=== PATIENT | male | born 1955 | race Caucasian/White ===

== ENCOUNTER → 2018-07-20 07:08 | Outpatient (CLI) | payer OTHER, SELFPAY ==
[2018-07-20 07:16] LABS: Bacteria 0 SEEN /hpf (None Seen); Mucous, Urine 0 SEEN /hpf (<or=2+); Red Blood Cells-Urine 0 SEEN /hpf (0-5); Squamous Epithelial Cells - UA 0 SEEN /hpf (0-5); White Blood Cells 0 SEEN /hpf (0-5)
[2018-07-20 08:38] LABS: Color, Urine Yellow (Yellow); Glucose, Dipstick Normal (Normal); Hematocrit 45.7 % (40-54); Hemoglobin 15.6 g/dl (13.0-16.5); Ketone-Dipstick Negative (Negative); Leukocyte Esterase-Dipstick Negative /ul (Negative); Mean Corp Hgb Conc 34.1 g/gl (32-36); Mean Corpuscular Hgb 32.6 pg (27.0-32.0); Mean Corpuscular Volume 95.6 fL (80-94); Mean Platelet Vol. 13.3 fl (6.2-12.0); Nitrite-Dipstick Negative (Negative); Occult Blood-Urine Negative /ul (Negative); Platelet Count 146 K/mm3 (150-450); Protein-Dipstick Negative (Negative); RBC Distribution Width CV 12.7 % (11.6-14.6); RBC Distribution Width SD 43.6 fl (35.1-43.9); Red Blood Count 4.78 M/mm3 (4.6-6.2); Urine Bilirubin Dipstick Negative (Negative); Urine Clarity Clear (Clear); Urine Urobilinogen Normal (Normal); White Blood Count 6.4 K/mm3 (4.4-11.0)
[2018-07-20 08:43] LABS: Scan Indicated on CBC? Y/N NO
[2018-07-20 09:18] LABS: ALB/GLOB Ratio 0.9 RATIO (0.9-2.4); AST(SGOT) 28 U/L (15-37); Alanine Aminotransfer ALT/SGPT 56 U/L (16-61); Albumin, Serum 3.7 g/dL (3.2-5.0); Alkaline Phosphatase 137 U/L (45-117); Anion Gap 8 (5-15); BUN 17 mg/dL (7-18); Calcium,Total 8.9 mg/dL (8.5-10.1); Chloride 105 mmol/L (98-107); Cholesterol 219 mg/dL (200); Creatinine, Serum 1.06 mg/dL (0.70-1.30); EST Glomerular Filtration Rate 75 mL/min (>60); Est Glom Filt Rate - Afr Amer 90 mL/min (>60); Globulin 3.9 g/dL (2.2-4.2); Glucose 91 mg/dL (74-106); High Density Lipoprotein 45 mg/dL; PSA,Total - Annual Screen 4.36 ng/mL (0.00-4.00); Protein, Total 7.6 g/dL (6.4-8.2); Sodium Level 141 mmol/L (136-145); Thyroid Stim Hormone (TSH) 3.87 uIU/mL (0.358-3.74); Triglycerides 184 mg/dL; Very Low Density Lipoprotein 37 mg/dL (5-40)
== END ==
PROVIDERS: Referring Provider Family Medicine; Visit Provider Family Medicine
DX: E78.2 Mixed hyperlipidemia (principal); Z12.5 Encounter for screening for malignant neoplasm of prostate; Z13.29 Encounter for screening for other suspected endocrine disorder
CPT/HCPCS: 36415; 80053; 80061; 81001; 84153; 84443; 85027; G0103

== ENCOUNTER → 2018-12-11 09:32 | Outpatient (CLI) | payer MEDICARE, OTHER, SELFPAY ==
[2018-12-11 11:21] LABS: PSA,Total- Diagnostic 4.44 ng/mL (0.0-4.0)
== END ==
PROVIDERS: Family Provider Family Medicine; PCP Family Medicine; Referring Provider Urology; Visit Provider Urology
DX: R97.20 Elevated prostate specific antigen [PSA] (principal); N40.1 Benign prostatic hyperplasia with lower urinary tract symptoms; N13.8 Other obstructive and reflux uropathy; R35.1 Nocturia
CPT/HCPCS: 36415; 84153

== ENCOUNTER → 2019-06-18 | Outpatient (CLI) | payer MEDICARE, OTHER, SELFPAY ==
[2019-06-18 08:01] LABS: Absolute Lymphocyte Count 2.36 X10^3/uL (0.83-4.51); Absolute Neutrophil Count 2.9 X10^3/uL (2.0-7.7); Basophil# 0.04 X10^3/uL; Basophil% 0.6 % (0-1); Eosinophil# 0.18 X10^3/uL; Eosinophils% 2.9 % (0-5); Hematocrit 46.4 % (40-54); Hemoglobin 15.5 g/dL (13.0-16.5); Lymphocyte # 2.36 X10^3/ul (4.0); Lymphocyte % 37.9 % (19-41); Mean Corp Hgb Conc 33.4 g/dL (32-36); Mean Corpuscular Hgb 31.3 pg (27.0-32.0); Mean Corpuscular Volume 93.5 fL (80-94); Mean Platelet Vol. 12.9 fl (6.2-12.0); Monocyte# 0.68 X10^3/uL; Monocyte% 10.9 % (0-10); NRBC Flagged by Analyzer 0 % (0-5); Neutrophil # 2.93 X10^3/uL (2.7-7.7); Neutrophil % 47.2 % (47-70); Platelet Count 146 K/mm3 (150-450); RBC Distribution Width CV 12.6 % (11.6-14.6); RBC Distribution Width SD 42.9 fl (35.1-43.9); Red Blood Count 4.96 M/mm3 (4.6-6.2); White Blood Count 6.2 K/mm3 (4.4-11.0)
[2019-06-18 08:30] LABS: ALB/GLOB Ratio 1.1 RATIO (0.9-2.4); AST(SGOT) 32 U/L (15-37); Alanine Aminotransfer ALT/SGPT 49 U/L (16-61); Albumin, Serum 3.9 g/dL (3.2-5.0); Alkaline Phosphatase 124 U/L (45-117); Anion Gap 6 (5-15); BUN 13 mg/dL (7-18); Calcium,Total 8.9 mg/dL (8.5-10.1); Chloride 107 mmol/L (98-107); Cholesterol 249 mg/dL (200); EST Glomerular Filtration Rate 80 mL/min (>60); Est Glom Filt Rate - Afr Amer 96 mL/min (>60); Globulin 3.6 g/dL (2.2-4.2); Glucose 102 mg/dL (74-106); High Density Lipoprotein 47 mg/dL; PSA,Total- Diagnostic 3.98 ng/mL (0.0-4.0); Protein, Total 7.5 g/dL (6.4-8.2); Sodium Level 138 mmol/L (136-145); Triglycerides 235 mg/dL; Very Low Density Lipoprotein 47 mg/dL (5-40)
== END | disposition home or self-care (01) ==
LOC: LAB 07:11
PROVIDERS: Family Provider Family Medicine; PCP Family Medicine; Referring Provider Urology; Visit Provider Urology
DX: R97.20 Elevated prostate specific antigen [PSA] (principal); N40.1 Benign prostatic hyperplasia with lower urinary tract symptoms; N13.8 Other obstructive and reflux uropathy; I10 Essential (primary) hypertension; R35.1 Nocturia; E78.2 Mixed hyperlipidemia
CPT/HCPCS: 36415; 80053; 80061; 84153; 85025

== ENCOUNTER → 2019-12-24 05:58 | Outpatient (CLI) | payer MEDICARE, OTHER, SELFPAY ==
[2019-12-24 07:36] LABS: PSA,Total- Diagnostic 3.57 ng/mL (0.0-4.0)
== END ==
PROVIDERS: PCP Family Medicine; Referring Provider Urology; Visit Provider Urology
DX: N40.1 Benign prostatic hyperplasia with lower urinary tract symptoms (principal); N13.8 Other obstructive and reflux uropathy; R35.1 Nocturia; R97.20 Elevated prostate specific antigen [PSA]
CPT/HCPCS: 36415; 84153

== ENCOUNTER → 2020-02-25 06:09 | Outpatient (CLI) | payer MEDICARE, OTHER, SELFPAY ==
[2020-02-25 07:50] LABS: Anion Gap 5 (5-15); BUN 15 mg/dL (7-18); BUN/Creat Ratio 15.5 RATIO (10-20); Calcium,Total 9.4 mg/dL (8.5-10.1); Chloride 107 mmol/L (98-107); Cholesterol 172 mg/dL (200); Creatinine, Serum 0.97 mg/dL (0.70-1.30); EST Glomerular Filtration Rate 83 mL/min (>60); Est Glom Filt Rate - Afr Amer 100 mL/min (>60); Glucose 101 mg/dL (74-106); High Density Lipoprotein 47 mg/dL; Potassium 4.2 mmol/L (3.5-5.1); Sodium Level 142 mmol/L (136-145); Triglycerides 230 mg/dL; Very Low Density Lipoprotein 46 mg/dL (5-40)
== END ==
PROVIDERS: PCP Family Medicine; Referring Provider Family Medicine; Visit Provider Family Medicine
DX: E78.2 Mixed hyperlipidemia (principal)
CPT/HCPCS: 36415; 80048; 80061

== ENCOUNTER → 2020-11-04 12:10 | Outpatient (CLI) | payer MEDICARE, OTHER, SELFPAY ==
[2020-11-04 14:48] LABS: Absolute Lymphocyte Count 2.76 X10^3/uL (0.83-4.51); Absolute Neutrophil Count 3.6 X10^3/uL (2.0-7.7); Basophil# 0.06 X10^3/uL; Basophil% 0.8 % (0-1); Eosinophil# 0.18 X10^3/uL; Eosinophils% 2.4 % (0-5); Hematocrit 48.4 % (40-54); Hemoglobin 15.9 g/dL (13.0-16.5); Lymphocyte # 2.76 X10^3/ul (4.0); Lymphocyte % 37.3 % (19-41); Mean Corp Hgb Conc 32.9 g/dL (32-36); Mean Corpuscular Hgb 30.6 pg (27.0-32.0); Mean Corpuscular Volume 93.1 fL (80-94); Mean Platelet Vol. 13.6 fl (6.2-12.0); Monocyte# 0.75 X10^3/uL; Monocyte% 10.1 % (0-10); NRBC Flagged by Analyzer 0 % (0-5); Neutrophil # 3.63 X10^3/uL (2.7-7.7); Neutrophil % 49.1 % (47-70); Platelet Count 162 K/mm3 (150-450); RBC Distribution Width CV 12.4 % (11.6-14.6); RBC Distribution Width SD 42.7 fl (35.1-43.9); White Blood Count 7.4 K/mm3 (4.4-11.0)
[2020-11-04 15:23] LABS: AST(SGOT) 30 U/L (15-37); Alanine Aminotransfer ALT/SGPT 53 U/L (16-61); Albumin, Serum 3.9 g/dL (3.2-5.0); Alkaline Phosphatase 147 U/L (45-117); Anion Gap 7 (5-15); BUN 14 mg/dL (7-18); Calcium,Total 9.3 mg/dL (8.5-10.1); Chloride 104 mmol/L (98-107); Cholesterol 200 mg/dL (200); Creatinine, Serum 1.08 mg/dL (0.70-1.30); EST Glomerular Filtration Rate 73 mL/min (>60); Est Glom Filt Rate - Afr Amer 88 mL/min (>60); Glucose 92 mg/dL (74-106); High Density Lipoprotein 45 mg/dL; Potassium 3.9 mmol/L (3.5-5.1); Protein, Total 7.9 g/dL (6.4-8.2); Sodium Level 139 mmol/L (136-145); Thyroid Stim Hormone (TSH) 3.52 uIU/mL (0.358-3.74); Triglycerides 267 mg/dL; Very Low Density Lipoprotein 53 mg/dL (5-40)
== END ==
PROVIDERS: PCP Family Medicine; Referring Provider Family Medicine; Visit Provider Family Medicine
DX: E03.9 Hypothyroidism, unspecified (principal); D64.9 Anemia, unspecified; Z13.220 Encounter for screening for lipoid disorders
CPT/HCPCS: 36415; 80053; 80061; 84443; 85025

== ENCOUNTER → 2020-12-29 05:56 | Outpatient (CLI) | payer MEDICARE, OTHER, SELFPAY ==
[2020-12-29 08:17] LABS: PSA,Total- Diagnostic 5.33 ng/mL (0.0-4.0)
== END ==
PROVIDERS: PCP Family Medicine; Referring Provider Urology; Visit Provider Urology
DX: R97.20 Elevated prostate specific antigen [PSA] (principal); R35.1 Nocturia; N40.1 Benign prostatic hyperplasia with lower urinary tract symptoms; N13.8 Other obstructive and reflux uropathy
CPT/HCPCS: 36415; 84153

== ENCOUNTER 2021-12-21 15:23 | Outpatient (CLI) | payer MEDICARE, OTHER, SELFPAY ==
[2021-12-21 15:30] LABS: Bacteria 0 SEEN /hpf (None Seen); Mucous, Urine 0 SEEN /hpf (<or=2+); Red Blood Cells-Urine 0 SEEN /hpf (0-5); Squamous Epithelial Cells - UA 0 SEEN /hpf (0-5)
[2021-12-21 15:53] LABS: Absolute Lymphocyte Count 3.33 X10^3/uL (0.83-4.51); Absolute Neutrophil Count 5.4 X10^3/uL (2.0-7.7); Basophil# 0.08 X10^3/uL; Basophil% 0.8 % (0-1); Hematocrit 45.3 % (40-54); Hemoglobin 15.6 g/dL (13.0-16.5); Lymphocyte # 3.33 X10^3/ul (0.83-4.51); Lymphocyte % 33.5 % (19-41); Mean Corp Hgb Conc 34.4 g/dL (32-36); Mean Corpuscular Hgb 31.7 pg (27.0-32.0); Mean Corpuscular Volume 92.1 fL (80-94); Mean Platelet Vol. 12.9 fl (6.2-12.0); Monocyte# 0.88 X10^3/uL; Monocyte% 8.9 % (0-10); NRBC Flagged by Analyzer 0 % (0-5); Neutrophil # 5.38 X10^3/uL (2.7-7.7); Neutrophil % 54.1 % (47-70); Platelet Count 162 K/mm3 (150-450); RBC Distribution Width CV 12.8 % (11.6-14.6); RBC Distribution Width SD 43.5 fl (35.1-43.9); Red Blood Count 4.92 M/mm3 (4.6-6.2); White Blood Count 9.9 K/mm3 (4.4-11.0)
[2021-12-21 15:58] LABS: Color, Urine Yellow (Yellow); Glucose, Dipstick Normal (Normal); Ketone-Dipstick Negative (Negative); Leukocyte Esterase-Dipstick Negative /ul (Negative); Nitrite-Dipstick Negative (Negative); Occult Blood-Urine Negative /ul (Negative); Protein-Dipstick Negative (Negative); Specific Gravity, Urine 1.025 (1.002-1.030); Urine Bilirubin Dipstick Negative (Negative); Urine Clarity Clear (Clear); Urine Urobilinogen Normal (Normal)
[2021-12-21 16:11] LABS: White Blood Cells 0-5 SEEN /hpf (0-5)
[2021-12-21 16:24] LABS: Vitamin D,25 Hydroxy 66.7 ng/mL
[2021-12-21 16:33] LABS: AST(SGOT) 47 U/L (15-37); Alanine Aminotransfer ALT/SGPT 80 U/L (16-61); Albumin, Serum 3.8 g/dL (3.2-5.0); Alkaline Phosphatase 143 U/L (45-117); Anion Gap 6 (5-15); BUN 17 mg/dL (7-18); BUN/Creat Ratio 15.7 RATIO (10-20); Calcium,Total 8.9 mg/dL (8.5-10.1); Chloride 106 mmol/L (98-107); Cholesterol 234 mg/dL (200); Creatinine, Serum 1.08 mg/dL (0.70-1.30); EST Glomerular Filtration Rate 72 mL/min (>60); Est Glom Filt Rate - Afr Amer 87 mL/min (>60); Globulin 3.9 g/dL (2.2-4.2); Glucose 94 mg/dL (74-106); High Density Lipoprotein 42 mg/dL; Protein, Total 7.7 g/dL (6.4-8.2); Sodium Level 138 mmol/L (136-145); Thyroid Stim Hormone (TSH) 5.81 uIU/mL (0.358-3.74); Triglycerides 319 mg/dL; Very Low Density Lipoprotein 64 mg/dL (5-40)
== END 2021-12-21 23:59 | disposition home or self-care (01) ==
LOC: LAB 15:26
PROVIDERS: PCP Family Medicine; Visit Provider Family Medicine
DX: E55.9 Vitamin D deficiency, unspecified (principal); E78.2 Mixed hyperlipidemia; Z13.29 Encounter for screening for other suspected endocrine disorder
CPT/HCPCS: 36415; 80053; 80061; 81001; 82306; 84443; 85025

== ENCOUNTER → 2022-01-20 | Outpatient (CLI) | payer MEDICARE, OTHER, SELFPAY ==
[2022-01-20 07:57] LABS: AST(SGOT) 29 U/L (15-37); Alanine Aminotransfer ALT/SGPT 41 U/L (16-61); Albumin, Serum 3.4 g/dL (3.2-5.0); Alkaline Phosphatase 131 U/L (45-117); Bilirubin, Direct 0.13 mg/dL (0.00-0.30); GGTP 53 U/L (15-85); Globulin 3.5 g/dL (2.2-4.2); Protein, Total 6.9 g/dL (6.4-8.2); Thyroid Stim Hormone (TSH) 3.17 uIU/mL (0.358-3.74)
== END | disposition home or self-care (01) ==
LOC: LAB 06:33
PROVIDERS: PCP Family Medicine; Referring Provider Family Medicine; Visit Provider Family Medicine
DX: R74.8 Abnormal levels of other serum enzymes (principal); E03.8 Other specified hypothyroidism
CPT/HCPCS: 36415; 80076; 82977; 84443

== ENCOUNTER → 2022-06-09 | Outpatient (CLI) | payer MEDICARE, OTHER, SELFPAY ==
[2022-06-09 07:41] LABS: PSA,Total - Annual Screen 2.86 ng/mL (0.00-4.00)
== END | disposition home or self-care (01) ==
LOC: LAB 06:19
PROVIDERS: PCP Family Medicine; Referring Provider Urology; Visit Provider Urology
DX: Z12.5 Encounter for screening for malignant neoplasm of prostate (principal)
CPT/HCPCS: 36415; 84153; G0103

== ENCOUNTER → 2023-01-02 | Outpatient (CLI) | payer MEDICARE, SELFPAY ==
[2023-01-02 06:38] LABS: Bacteria 0 SEEN /hpf (None Seen); Mucous, Urine 0 SEEN /hpf (<or=2+); Red Blood Cells-Urine 0 SEEN /hpf (0-5); Squamous Epithelial Cells - UA 0 SEEN /hpf (0-5); White Blood Cells 0 SEEN /hpf (0-5)
[2023-01-02 07:24] LABS: Absolute Lymphocyte Count 2.52 X10^3/uL (0.83-4.51); Absolute Neutrophil Count 2.7 X10^3/uL (2.0-7.7); Basophil# 0.04 X10^3/uL; Basophil% 0.7 % (0-1); Eosinophil# 0.13 X10^3/uL; Eosinophils% 2.2 % (0-5); Hematocrit 47.8 % (40-54); Hemoglobin 15.7 g/dL (13.0-16.5); Lymphocyte # 2.52 X10^3/ul (0.83-4.51); Lymphocyte % 42.1 % (19-41); Mean Corp Hgb Conc 32.8 g/dL (32-36); Mean Corpuscular Hgb 31.2 pg (27.0-32.0); Mean Corpuscular Volume 94.8 fL (80-94); Mean Platelet Vol. 13.1 fl (6.2-12.0); Monocyte# 0.55 X10^3/uL; Monocyte% 9.2 % (0-10); NRBC Flagged by Analyzer 0 % (0-5); Neutrophil # 2.72 X10^3/uL (2.7-7.7); Neutrophil % 45.5 % (47-70); Platelet Count 133 K/mm3 (150-450); RBC Distribution Width CV 12.7 % (11.6-14.6); RBC Distribution Width SD 44.2 fl (35.1-43.9); Red Blood Count 5.04 M/mm3 (4.6-6.2)
[2023-01-02 07:36] LABS: Color, Urine Yellow (Yellow); Glucose, Dipstick Normal (Normal); Ketone-Dipstick Negative (Negative); Leukocyte Esterase-Dipstick Negative /ul (Negative); Nitrite-Dipstick Negative (Negative); Occult Blood-Urine Negative /ul (Negative); Protein-Dipstick 15 mg/dl (Negative); Specific Gravity, Urine 1.025 (1.002-1.030); Urine Bilirubin Dipstick Negative (Negative); Urine Clarity Clear (Clear); Urine Urobilinogen Normal (Normal)
[2023-01-02 08:01] LABS: AST(SGOT) 21 U/L (15-37); Alanine Aminotransfer ALT/SGPT 38 U/L (16-61); Albumin, Serum 3.6 g/dL (3.2-5.0); Alkaline Phosphatase 114 U/L (45-117); Anion Gap 5 (5-15); BUN 14 mg/dL (7-18); BUN/Creat Ratio 13.3 RATIO (10-20); Calcium,Total 8.9 mg/dL (8.5-10.1); Chloride 108 mmol/L (98-107); Cholesterol 212 mg/dL (200); Creatinine, Serum 1.05 mg/dL (0.70-1.30); EST Glomerular Filtration Rate 74 mL/min (>60); Est Glom Filt Rate - Afr Amer 90 mL/min (>60); Globulin 3.6 g/dL (2.2-4.2); Glucose 98 mg/dL (74-106); High Density Lipoprotein 44 mg/dL; Potassium 3.8 mmol/L (3.5-5.1); Protein, Total 7.2 g/dL (6.4-8.2); Sodium Level 138 mmol/L (136-145); Thyroid Stim Hormone (TSH) 4.52 uIU/mL (0.358-3.74); Triglycerides 173 mg/dL; Very Low Density Lipoprotein 35 mg/dL (5-40)
== END | disposition home or self-care (01) ==
LOC: LAB 06:32
PROVIDERS: PCP Family Medicine; Referring Provider Family Medicine; Visit Provider Family Medicine
DX: Z13.29 Encounter for screening for other suspected endocrine disorder (principal); E78.2 Mixed hyperlipidemia
CPT/HCPCS: 36415; 80053; 80061; 81001; 84443; 85025

== ENCOUNTER → 2023-06-19 | Outpatient (CLI) | payer MEDICARE, SELFPAY ==
[2023-06-19 10:01] LABS: PSA,Total- Diagnostic 3.18 ng/mL (0.0-4.0)
== END | disposition home or self-care (01) ==
PROVIDERS: PCP Family Medicine; Referring Provider Urology; Visit Provider Urology
DX: R97.20 Elevated prostate specific antigen [PSA] (principal); N40.1 Benign prostatic hyperplasia with lower urinary tract symptoms; N13.8 Other obstructive and reflux uropathy; Z12.5 Encounter for screening for malignant neoplasm of prostate
CPT/HCPCS: 36415; 84153

== ENCOUNTER 2024-04-05 13:04 | Outpatient (CLI) | payer MEDICARE, SELFPAY ==
[2024-04-05 13:20] LABS: Bacteria 0 SEEN /hpf (None Seen); Mucous, Urine 0 SEEN /hpf (<or=2+); Red Blood Cells-Urine 0 SEEN /hpf (0-5); Squamous Epithelial Cells - UA 0 SEEN /hpf (0-5); White Blood Cells 0 SEEN /hpf (0-5)
[2024-04-05 13:40] LABS: Absolute Lymphocyte Count 2.27 X10^3/uL (0.83-4.51); Absolute Neutrophil Count 3.9 X10^3/uL (2.0-7.7); Basophil# 0.06 X10^3/uL; Basophil% 0.9 % (0-1); Eosinophil# 0.14 X10^3/uL; Hematocrit 44.6 % (40-54); Hemoglobin 15.3 g/dL (13.0-16.5); Lymphocyte # 2.27 X10^3/ul (0.83-4.51); Lymphocyte % 32.7 % (19-41); Mean Corp Hgb Conc 34.3 g/dL (32-36); Mean Corpuscular Hgb 31.4 pg (27.0-32.0); Mean Corpuscular Volume 91.6 fL (80-94); Mean Platelet Vol. 12.8 fl (6.2-12.0); Monocyte% 8.6 % (0-10); NRBC Flagged by Analyzer 0 % (0-5); Neutrophil # 3.87 X10^3/uL (2.7-7.7); Neutrophil % 55.7 % (47-70); Platelet Count 144 K/mm3 (150-450); RBC Distribution Width CV 12.5 % (11.6-14.6); RBC Distribution Width SD 42.1 fl (35.1-43.9); Red Blood Count 4.87 M/mm3 (4.6-6.2)
[2024-04-05 13:45] LABS: Color, Urine Yellow (Yellow); Glucose, Dipstick Normal (Normal); Ketone-Dipstick Negative (Negative); Leukocyte Esterase-Dipstick Negative /ul (Negative); Nitrite-Dipstick Negative (Negative); Occult Blood-Urine Negative /ul (Negative); Protein-Dipstick Negative (Negative); Urine Bilirubin Dipstick Negative (Negative); Urine Clarity Clear (Clear); Urine Urobilinogen Normal (Normal)
[2024-04-05 14:08] LABS: Vitamin D,25 Hydroxy 66.9 ng/mL
[2024-04-05 14:19] LABS: ALB/GLOB Ratio 0.9 RATIO (0.9-2.4); AST(SGOT) 29 U/L (15-37); Alanine Aminotransfer ALT/SGPT 39 U/L (16-61); Albumin, Serum 3.6 g/dL (3.2-5.0); Alkaline Phosphatase 134 U/L (45-117); Anion Gap 3 (5-15); BUN 14 mg/dL (7-18); BUN/Creat Ratio 12.4 RATIO (10-20); Calcium,Total 8.9 mg/dL (8.5-10.1); Chloride 108 mmol/L (98-107); Cholesterol 212 mg/dL (200); Creatinine, Serum 1.13 mg/dL (0.70-1.30); EST Glomerular Filtration Rate 68 mL/min (>60); Est Glom Filt Rate - Afr Amer 82 mL/min (>60); Globulin 3.9 g/dL (2.2-4.2); Glucose 91 mg/dL (74-106); High Density Lipoprotein 53 mg/dL; PSA,Total - Annual Screen 3.88 ng/mL (0.00-4.00); Potassium 4.1 mmol/L (3.5-5.1); Protein, Total 7.5 g/dL (6.4-8.2); Sodium Level 139 mmol/L (136-145); Thyroid Stim Hormone (TSH) 2.95 uIU/mL (0.358-3.74); Triglycerides 115 mg/dL; Very Low Density Lipoprotein 23 mg/dL (5-40)
== END 2024-04-05 23:59 | disposition home or self-care (01) ==
LOC: LAB 13:07
PROVIDERS: PCP Family Medicine; Visit Provider Family Medicine
DX: I10 Essential (primary) hypertension (principal); E78.2 Mixed hyperlipidemia; Z13.29 Encounter for screening for other suspected endocrine disorder; Z12.5 Encounter for screening for malignant neoplasm of prostate; E55.9 Vitamin D deficiency, unspecified
CPT/HCPCS: 36415; 80053; 80061; 81001; 82306; 84153; 84443; 85025; G0103

== ENCOUNTER → 2025-02-17 | Outpatient (CLI) | payer MEDICARE, SELFPAY ==
--- OUTSIDE RECORDS SUMMARY | 2025-02-17 06:11 | XMS RPT_ITS | CCD ---
Author Organization [facility] Care Team Providers Care Rn Procedures Name Role Phone Kamaljit LONGO [facility] er Jonnathan Méndez Jr. Unavailable Harjit Russo MD Unavailable Joshua Eller Attending Unavailable Joshua Eller Referring Unavailable [facility] Unavailable Yara Hunter Attending [facility]available [facility] er Jonnathan Méndez Jr. Unavailable Harjit Russo MD Unavailable JACOB ADAM Attending Unavailable [facility] Heather [facility] Attending Heather labalexander SELF Referring Unavailable [facility] Unavai lable Allergies Allergy Classification Reported Allergen(s) Allergy Type Date of Onset Reaction(s) Facility (20 sources) Ciprofloxacin; Translations: [CIPROFLOXACIN HCL] Drug Allergy 8 GI Upset [facility] (20 sources) Doxycycline; Translations: [DOXYCYCLINE] Drug Allergy 8 Unknown [facility] (20 sources) Seasonal allergy; Translations: [SEASONAL ALLERGIES] Allergy to substance 3 Other: See Comments [facility] Medications Current Medications Medication Drug Class(es) Dates Sig (Normalized) Sig (Original) [id number] 200 actuat albuterol 0.09 mg/actuat metered dose inhaler (20 sources) beta2-Adrenergic Agonist Start: 04-28-2021 End: 09-19-2024 take 2 puff(s) by inhalation every four hours as needed albuterol HFA (PROVENTIL HFA, VENTOLIN HFA) 90 mcg/actuation inhaler Inhale 2 Puffs as instructed every 4 hours as needed. 3 Each 3 09/19/2024 Active Comment on above: Inhale 2 Puffs as in structed every 4 hours as needed. fluticasone / salmeterol (20 sources) Corticosteroid, beta2-Adrenergic Agonist Start: 09-19-2024 take 1 puff(s) by mouth twice daily fluticasone-salme terol (ADVAIR DISKUS) 100-50 mcg/dose inhaler Indications: Seasonal allergic rhinitis due to pollen Inhale 1 Puff as instructed two times a day. RINSE AND GARGLE MOUTH WITH WATER AFTER EACH USE. 180 Each 3 09/19/2024 Active Start: 12-11-2023 End: 09-19-2024 take 1 puff(s) by mouth twice daily fluticasone-salmeterol (ADVAIR DISKUS) 100-50 mcg/dose inhaler Indications: Seasonal allergic rhinitis due to pollen Inhale 1 Puff as instructed two times a day. RINSE AND GARGLE MOUTH WITH WATER AFTER EACH USE. 180 Each 3 12/11/2023 09/19/2024 Discontinued Start: 12-11-2023 take 1 puff(s) by mo uth twice daily fluticasone-salmeterol (ADVAIR DISKUS) 100-50 mcg/dose inhaler Indications: Seasonal allergic rhinitis due to pollen Inhale 1 Puff as instructed two times a day. RINSE AND GARGLE MOUTH WITH WATER AFTER EACH USE. 180 Each 3 12/11/2023 Active Start: 10-23-2023 End: 12-11-2023 take 1 puff(s) by mouth twice daily fluticasone-salmeterol (ADVAIR DISKUS) 100-50 mcg/dose inhaler Indications: Seasonal allergic rhinitis due to pollen Inhale 1 Puff as instructed two times a day. RINSE AND GARGLE MOUTH WITH WATER AFTER EACH USE. 180 Each 2 10/23/2023 12/11/2023 Discontinued Start: 10-23-2023 take 1 puff(s) by mo uth twice daily fluticasone-salmeterol (ADVAIR DISKUS) 100-50 mcg/dose inhaler Indications: Seasonal allergic rhinitis due to pollen Inhale 1 Puff as instructed two times a day. RINSE AND GARGLE MOUTH WITH WATER AFTER EACH USE. 180 Each 2 10/23/2023 Active Start: 09-06-2023 End: 10-23-2023 take 1 puff(s) by mouth twice daily ADVAIR DISKUS 100-50 mcg/dose inhaler Indications: Seasonal allergic rhinitis due to pollen INHALE 1 PUFF INSTRUCTED TWICE DAILY. RINSE AND GARGLE MOUTH WITH WATER AFTER EACH USE. 180 Each 0 09/06/2023 10/23/2023 Discontinued Start: 06-05-2023 End: 09-03-2023 take 1 puff(s) by mouth twice daily fluticasone-salmeterol (ADVAIR DISKUS) 100-50 mcg/dose inhaler Indications: Seasonal allergic rhinitis due to pollen Inhale 1 Puff as instructed twice daily. Rinse and gargle mouth with water after each use. 180 Each 0 06/05/2023 09/03/2023 Active Start: 10-03-2022 End: 06-05-2023 take 1 puff(s) by mouth twice daily fluticasone-salmeterol (ADVAIR DISKUS) 100-50 mcg/dose inhaler Inhale 1 Puff as instructed twice daily. Rinse and gargle mouth with water after each use. 180 Each 0 10/03/2022 06/05/2023 Discontinued Start: 10-03-2022 take 1 puff(s) by mo uth twice daily fluticasone-salmeterol (ADVAIR DISKUS) 100-50 mcg/dose inhaler Inhale 1 Puff as instructed twice daily. Rinse and gargle mouth with water after each use. 180 Each 0 10/03/2022 Active Start: 10-03-2022 End: 01-01-2023 take 1 puff(s) by mouth twice daily fluticasone-salmeterol (ADVAIR DISKUS) 100-50 mcg/dose inhaler Inhale 1 Puff as instructed twice daily. Rinse and gargle mouth with water after each use. 180 Each 0 10/03/2022 01/01/2023 Active Start: 12-06-2021 End: 10-03-2022 take 1 puff(s) by mouth twice daily fluticasone-salmeterol (ADVAIR DISKUS) 100-50 mcg/dose inhaler Inhale 1 Puff as instructed twice daily. Rinse and gargle mouth with water after each use. 60 Each 11 12/06/2021 10/03/2022 Discontinued Start: 12-06-2021 End: 12-06-2022 take 1 puff(s) by mouth twice daily fluticasone-salmeterol (ADVAIR DISKUS) 100-50 mcg/dose inhaler Inhale 1 Puff as instructed twice daily. Rinse and gargle mouth with water after each use. 60 Each 11 12/06/2021 12/06/2022 Active Start: 12-06-2021 End: 12-06-2022 take 1 puff(s) by mouth twice daily fluticasone-salmeterol (ADVAIR DISKUS) 100-50 mcg/dose inhaler Inhale 1 Puff as instructed twice daily. Rinse and gargle mouth with water after each use. 60 Each 12/06/2021 12/06/2022 Active Comment on above: Inhale 1 Puff as ins tructed twice daily. Rinse and gargle mouth with water after each use. Inhale 1 Puff as ins tructed two times a day. RINSE AND GARGLE MOUTH WITH WATER AFTER EACH USE. ipratropium bromide 0.042 mg/actuat metered dose nasal spray (20 sources) Anticholinergic Start: End: ipratropium bromide (ATROVENT) 42 mcg (0.06 %) nasal spray USE 2 SPRAYS IN THE NOSE THREE TIMES A DAY. 90 mL 3 01/27/2025 Active Comment on above: Use 2 Sprays in the nose three times daily. losartan potassium 100 mg oral tablet (20 sources) Angiotensin 2 Receptor Rommel Start: End: take 1 tablet by mouth once daily losartan (COZAAR) 100 mg tablet Indications: Essential (primary) hypertension TAKE 1 TABLET BY MOUTH EVERY DAY 30 tablet 02/04/2025 Active Comment on above: Take 1 tablet by rebekah th once daily. TAKE 1 TABLET BY REBEKAH TH EVERY DAY mirtazapine 30 mg oral tablet (20 sources) Start: End: take 1 tablet by mouth once daily at bedtime mirtazapine (REMERON) 30 mg tablet Indications: Chronic insomnia Take 1 tablet by mouth daily at bedtime. 90 tablet 3 02/09/2024 Active Comment on above: TAKE 1 TABLET BY REBEKAH TH EVERYDAY AT BEDTIME Take 1 tablet by rebekah th daily at bedtime. montelukast 10 mg oral tablet (20 sources) Leukotriene Receptor Antagonist Start: End: take 1 tablet by mouth once daily at bedtime montelukast (SINGULAIR) 10 mg tablet Indications: Seasonal allergic rhinitis due to pollen Take 1 tablet by mouth daily at bedtime. 90 tablet 3 09/19/2024 Active Comment on above: TAKE 1 TABLET BY REBEKAH TH EVERYDAY AT BEDTIME Take 1 tablet by rebekah th daily at bedtime. OZEMPIC 1 mg/dose (4 mg/3 mL) pen (10 sources) Start: End: inject 1 mg by subcutaneous injection every week OZEMPIC 1 mg/dose (4 mg/3 mL) pen Indications: Overweight with body mass index (BMI) of 29 to 29.9 in adult Inject 1 mg subcutaneously one time a week. 3 mL 5 02/09/2024 08/07/2024 Active Start: 05-18-2023 End: 02-09-2024 inject 1 mg by subcutaneous injection every week OZEMPIC 1 mg/dose (4 mg/3 mL) pen Inject 1 mg subcutaneously one time a week. 0 05/18/2023 02/09/2024 Discontinued Start: 05-18-2023 inject 1 mg by subcu taneous injection every week OZEMPIC 1 mg/dose (4 mg/3 mL) pen Inject 1 mg subcutaneously one time a week. 0 05/18/2023 Active Comment on above: Inject 1 mg subcutan eously one time a week. semaglutide (OZEMPIC) 1 mg/dose (4 mg/3 mL) pen (1 source) Start: End: inject 1 mg by subcutaneous injection every week semaglutide (OZEMPIC) 1 mg/dose (4 mg/3 mL) pen Inject 1 mg subcutaneously one time a week. 3 mL 11 02/17/2023 03/19/2023 Active Comment on above: Inject 1 mg subcutan eously one time a week. 24 hr venlafaxine 37.5 mg extended release oral capsule (20 sources) Serotonin and Norepinephrine Reuptake Inhibitor Start: End: 024 take 1 capsule by mouth once daily venlafaxine ER (EFFEXOR XR) 37.5 mg 24 hr capsule Indications: Generalized anxiety disorder Take 1 capsule by mouth once daily. 90 capsule 3 02/09/2024 Active Start: 03-11-2021 End: 12-03-2021 take 1 capsule by mouth once daily venlafaxine ER (EFFEXOR XR) 75 mg 24 hr capsule Indications: Generalized anxiety disorder Take 1 capsule by mouth once daily. 90 capsule 3 03/11/2021 12/03/2021 Discontinued (Other) Start: 09-09-2020 End: 02-24-2022 take 1 capsule by mouth once daily venlafaxine ER (EFFEXOR XR) 37.5 mg 24 hr capsule Indications: Generalized anxiety disorder Take 1 capsule by mouth once daily. 90 capsule 1 02/24/2022 Active Comment on above: TAKE 1 CAPSULE BY MO [facility] EVERY DAY Take 1 capsule by mo [facility] once daily. TAKE 1 CAPSULE BY MO [facility] ONCE DAILY Completed/Discontinued Medications Medication Drug Class(es) Dates Sig (Normalized) Sig (Original) atorvastatin 20 mg oral tablet (20 sources) HMG-CoA Reductase Inhibitor Start: 09-09-2020 End: 12-20-2022 take 1 tablet by mouth once daily atorvastatin (LIPITOR) 20 mg tablet Indications: Mixed hyperlipidemia Take 1 tablet by mouth once daily. 90 tablet 3 11/11/2021 12/20/2022 Discontinued (.All criteria met for discontinuation) Comment on above: Take 1 tablet by [facility] once daily. azelastine hydrochloride 0.137 mg/actuat metered dose nasal spray (3 sources) Histamine-1 Receptor Antagonist Start: 04-28-2021 End: 12-03-2021 take 2 spray(s) nasal route twice daily azelastine (ASTELIN) 0.1% nasal spray Use 2 Sprays in each nostril twice daily. 1 Bottle 11 04/28/2021 12/03/2021 Discontinued (Other) Comment on above: Use 2 Sprays in each nostril twice daily. COMPOUNDED PRESCRIPTION (20 sources) End: 08-11-2023 COMPOUNDED PRESCRIPTION Allergy injections (immunotherathy) started January 2013 0 08/11/2023 Discontinued (.All criteria met for discontinuation) COMPOUNDED PRESC RIPTION Allergy injections (immunotherathy) started January 2013 0 Active Comment on above: Allergy injections ( immunotherathy) started January 2013 [id number] 0.3 ml EPINEPHrine 1 mg/ml auto-injector (20 sources) alpha-Adrenergic Agonist, beta-Adrenergic Agonist, Catecholamine Start: 01-27-2021 End: 09-19-2024 EPINEPHrine (EPIPEN) 0.3 mg/0.3 mL auto-injector Inject 0.3 mL intramuscularly as directed. Okay to use generic 2 Each 11/15/2022 09/19/2024 Discontinued Comment on above: Inject 0.3 mL intram uscularly as directed. Okay to use generic OZEMPIC 0.25 mg or 0.5 mg (2 mg/3 mL) pen (8 sources) Start: 07-13-2023 End: 09-19-2024 OZEMPIC 0.25 mg or 0.5 mg (2 mg/3 mL) pen Indications: Overweight with body mass index (BMI) of 28 to 28.9 in adult INJECT 0.5 MG SUBCUTANEOUSLY ONE TIME A WEEK. IN ADDITION TO 1 MG TO EQUAL 1.5 4 Each 07/13/2023 09/19/2024 Discontinued (.All criteria met for discontinuation) Start: 07-13-2023 OZEMPIC 0.25 m g or 0.5 mg (2 mg/3 mL) pen Indications: Overweight with body mass index (BMI) of 28 to 28.9 in adult INJECT 0.5 MG SUBCUTANEOUSLY ONE TIME A WEEK. IN ADDITION TO 1 MG TO EQUAL 1.5 4 Each 07/13/2023 Active Comment on above: INJECT 0.5 MG SUBCUT ANEOUSLY ONE TIME A WEEK. IN ADDITION TO 1 MG TO EQUAL 1.5 0.25 mg, 0.5 mg dose 1.5 ml semaglutide 1.34 mg/ml pen injector (20 sources) Start: 01-23-2023 End: 06-05-2023 semaglutide (OZEMPIC) 0.25 mg or 0.5 mg(2 mg/1.5 mL) pen Indications: Overweight with body mass index (BMI) of 28 to 28.9 in adult Inject 0.5 mg subcutaneously one time a week. In addition to 1 mg to equal 1.5 4 Each 0 06/05/2023 Active Start: 11-15-2022 End: 09-19-2024 semaglutide (OZEMPIC) 0.25 m g or 0.5 mg(2 mg/1.5 mL) pen Inject 0.25 mg subcutaneously one time a week. 4 Each 11/15/2022 09/19/2024 Discontinued (.All criteria met for discontinuation) Comment on above: Inject 0.25 mg subcu taneously one time a week. Inject 0.5 mg subcut aneously one time a week. Inject 0.5 mg subcut aneously one time a week. In addition to 1 mg to equal 1.5 semaglutide (OZEMPIC) 0.25 mg or 0.5 mg (2 mg/3 mL) pen (2 sources) Start: 12-23-2022 End: 01-23-2023 semaglutide (OZEMPIC) 0.25 mg or 0.5 mg (2 mg/3 mL) pen Inject 1 mg subcutaneously one time a week. 1 Each 1 12/23/2022 01/23/2023 Discontinued Start: 12-23-2022 semaglutide (O ZEMPIC) 0.25 mg or 0.5 mg (2 mg/3 mL) pen Inject 1 mg subcutaneously one time a week. 1 Each 1 12/23/2022 Active Comment on above: Inject 1 mg subcutan eously one time a week. Problems Active Problems Problem Classification Problem Date Documented Date Episodic/Chronic Anxiety disorders (20 sources) Generalized anxiety disorder; Translations: [Generalized anxiety disorder] Onset: 09-09-2020 09-09-2020 Chronic Asthma (20 sources) Uncomplicated mild persistent asthma; Translations: [Mild persistent asthma, uncomplicated] Onset: 08-13-2018 Chronic Disorders of lipid metabolism (20 sources) Hyperlipidemia; Translations: [Hyperlipidemia, unspecified] Onset: 09-09-2020 09-09-2020 Chronic Esophageal disorders (20 sources) Laryngopharyngeal reflux; Translations: [Gastro-esophageal reflux disease without esophagitis] Onset: 02-16-2012 12-06-2021 Chronic Essential hypertension (20 sources) Essential hypertension; Translations: [Essential (primary) hypertension] Onset: 09-09-2020 09-09-2020 Chronic Hyperplasia of prostate (2 sources) Benign prostatic hypertrophy with outflow obstruction; Translations: [Benign prostatic hyperplasia with lower urinary tract symptoms] Chronic Miscellaneous mental health disorders (20 sources) Chronic insomnia; Translations: [Psychophysiologic insomnia] Onset: 09-09-2020 09-09-2020 Chronic Other nutritional; endocrine; and metabolic disorders (1 source) Body mass index 30+ - obesity; Translations: [Body mass index (BMI) 31.0-31.9, adult] Chronic Other nutritional; endocrine; and metabolic disorders (1 source) Body mass index (BMI) 31.0-31.9, adult; Translations: [Class 1 obesity with body mass index (BMI) of 31.0 to 31.9 in adult, unspecified obesity type, unspecified whether serious comorbidity present] Onset: 02-10-2025 Chronic Other nutritional; endocrine; and metabolic disorders (2 sources) Overweight in adulthood with body mass index of 25 or more but less than 30; Translations: [Overweight] 06-05-2023 Episodic Other screening for suspected conditions (not mental disorders or infectious disease) (10 sources) Raised prostate specific antigen; Translations: [Elevated prostate specific antigen [PSA]] Onset: 06-22-2023 Episodic Other upper respiratory disease (20 sources) Vasomotor rhinitis; Translations: [Vasomotor rhinitis] Onset: 12-06-2021 Chronic Other upper respiratory disease (20 sources) Allergic rhinitis due to pollen; Translations: [Allergic rhinitis due to pollen] Onset: 08-13-2018 Chronic Other upper respiratory disease (20 sources) Allergic rhinitis caused by mold; Translations: [Other allergic rhinitis] Onset: 12-20-2022 Chronic Other upper respiratory disease (20 sources) Allergic rhinitis due to house dust mite; Translations: [Other allergic rhinitis] Onset: 12-20-2022 Chronic Thyroid disorders (1 source) Subclinical hypothyroidism; Translations: [Other specified hypothyroidism] Chronic Unclassified (1 source) Class 1 obesity with body mass index (BMI) of 31.0 to 31.9 in adult, unspecified obesity type, unspecified whether serious comorbidity present; Translations: [Class 1 obesity with body mass index (BMI) of 31.0 to 31.9 in adult, unspecified obesity type, unspecified whether serious comorbidity present] Onset: 02-10-2025 Past or Other Problems Problem Classification Problem Date Documented Da te Episodic/Chronic Genitourinary symptoms and ill-defined conditions (20 sources) Urgent desire to urinate; Translations: [Urgency of urination] Onset: 10-30-2018 10-30-2018 Episodic Other lower respiratory disease (20 sources) Chronic cough; Translations: [Chronic cough] Onset: 08-13-2018 12-06-2021 Episodic Other upper respiratory disease (20 sources) Dysphonia; Translations: [Dysphonia] Onset: 01-24-2012 01-24-2012 Episodic Results Test Name Value Interpretation Reference Range Facility CNOVon 09-19-2024 CNOV Office Visit ([facility]) MADI BOLANOS ([id number]) 1955 M Date Time Provider Department 09/19/24 2:40 PM JACOB ADAM [facility] During your visit today, we recorded the following information about you: Temperature Pulse Respiration Blood pressure 98.7 degrees 83/minute 18/minute 110/71 Weight Height 95.3 kg 1.803 m Jacob Adam MD 09/19/2024 9:00 PM Signed Allergy AND Immunology Established Visit PATIENT NAME: Madi Bolanos SERVICE DATE: 09/19/2024 HPI: The patient is a 68-year-old male presenting with a persistent chronic cough and management of allergic rhinitis. The patient reports a long-standing issue with what he describes as a chronic cold condition, which includes persistent coughing. He recalls receiving allergy shots and experiencing exacerbated symptoms such as cough in cold weather conditions. His cough has been persistent since he restarted smoking briefly after quitting for two years and has become a chronic issue, waxing and waning with allergy exposure or infections. The chronic cough becomes noticeable with dry weather changes and occurs more frequently during the spring allergy season. The cough episodes have historically worsened with exposure to environmental irritants like pollen. Previous management included Spiriva, with borderline results showing low and normal spirometric tests. He has experimented with an [id number] supplement, NAC (N-acetylcysteine), reporting symptomatic improvement and less thick mucous production, although no formal studies support this effect. Previously, his asthma had been managed with Advair and ProAir. Currently, he notes he was given a generic equivalent of Advair. Despite needing to maintain appointments, he has experienced difficulty securing timely follow-ups within his practice due to its growth and popularity. 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 He is vigilant about his vaccinations and received the recent flu and COVID-19 vaccines. PAST MEDICAL HISTORY Diagnosis Date Abnormal EKG Acute maxillary sinusitis Acute prostatitis Allergic rhinitis Asthma Body mass index 29.0-29.9, adult Chronic laryngitis Chronic obstructive lung disease (HCC) Elevated PSA Essential (primary) hypertension Fatigue Generalized anxiety disorder GERD (gastroesophageal reflux disease) Hyperlipemia Lateral epicondylitis Other insomnia Pulmonary emphysema (HCC) Raised TSH level Thrombocytopenic disorder (HCC) Tobacco dependence syndrome Vitamin D deficiency ACTIVE PROBLEM LIST Muscle Tension Dysphonia Lprd (Laryngopharyngeal Reflux Disease) Seasonal Allergic Rhinitis Due to Pollen Chronic Cough Mild Persistent Asthma Without Complication Urgency of Urination Frequency of Urination Dysuria Essential (Primary) Hypertension Hyperlipemia Generalized Anxiety Disorder Chronic Insomnia Vasomotor Rhinitis Allergic Rhinitis Due to Dust Mite Allergic Rhinitis Due to Mold PAST SURGICAL HISTORY Procedure Laterality Date CATARACT EXTRACTION HX COLONOSCOPY 04/01/2011 COLONOSCOPY 04/11/2016 PAST SURGICAL HISTORY OF left ear stapedotomy Social History Tobacco Use Smoking status: Former Current packs/day: 0.00 Average packs/day: 1.5 packs/day for 35.0 years (52.5 ttl pk-yrs) Types: Cigarettes Start date: 1972 Quit date: 2007 Years since quittin.0 Smokeless tobacco: Former Quit date: 02/10/2008 Vaping Use Vaping status: Never Used Substance Use Topics Alcohol use: Not Currently Comment: none Drug use: No CURRENT OUTPATIENT MEDICATIONS: Current Outpatient Medications Medication Sig Dispense Refill losartan (COZAAR) 100 mg tablet Take 1 tablet by mouth once daily. 90 tablet 3 mirtazapine (REMERON) 30 mg tablet Take 1 tablet by mouth daily at bedtime. 90 tablet 3 venlafaxine ER (EFFEXOR XR) 37.5 mg 24 hr capsule Take 1 capsule by mouth once daily. 90 capsule 3 fluticasone-salmeter ol (ADVAIR DISKUS) 100-50 mcg/dose inhaler Inhale 1 Puff as instructed two times a day. RINSE AND GARGLE MOUTH WITH WATER AFTER EACH USE. 180 Each 3 montelukast (SINGULAIR) 10 mg tablet Take 1 tablet by mouth daily at bedtime. 90 tablet 3 ipratropium bromide (ATROVENT) 42 mcg (0.06 %) nasal spray Use 2 Sprays in the nose three times a day. 15 mL 3 albuterol HFA (PROVENTIL HFA, VENTOLIN HFA) 90 mcg/actuation inhaler Inhale 2 Puffs as instructed every 4 hours as needed. 3 Each 3 No current facility-administere d medications for this visit. ALLERGIES: ALLERGIES Allergen Reactions Ciprofloxacin Hcl GI Upset Doxycycline Unknown Seasonal Allergies Other: See Comments Santoshfemitzi REVIEW OF SYSTEMS: - Respiratory: Reports impr (more content not included)... Normal [facility] 05-31-2024 [facility] Telephone ([facility]) MADI BOLANOS ([id number]) 1955 Date Time Provider Department 05/31/24 JACOB ADAM [facility] During your visit today, we recorded the following information about you: Allergies As of Date: 05/31/2024 Noted Allergy Reaction CIPROFLOXACIN HCL 08/13/2018 8 - GI Upset DOXYCYCLINE 01/12/2018 16 - Unknown SEASONAL ALLERGIES 12/19/2012 14 - Other: See Comments Comments: Hayfever Date Reviewed: 02/09/2024 Reviewed by: Shala Phan LPN - Fully Assessed Prescriptions as of 05/31/2024 - losartan (COZAAR) 100 mg tablet Take 1 tablet by mouth once daily. - mirtazapine (REMERON) 30 mg tablet Take 1 tablet by mouth daily at bedtime. - montelukast (SINGULAIR) 10 mg tablet Take 1 tablet by mouth daily at bedtime. - venlafaxine ER (EFFEXOR XR) 37.5 mg 24 hr capsule Take 1 capsule by mouth once daily. - OZEMPIC 1 mg/dose (4 mg/3 mL) pen Inject 1 mg subcutaneously one time a week. - fluticasone-salmeter ol (ADVAIR DISKUS) 100-50 mcg/dose inhaler Inhale 1 Puff as instructed two times a day. RINSE AND GARGLE MOUTH WITH WATER AFTER EACH USE. - OZEMPIC 0.25 mg or 0.5 mg (2 mg/3 mL) pen INJECT 0.5 MG SUBCUTANEOUSLY ONE TIME A WEEK. IN ADDITION TO 1 MG TO EQUAL 1.5 - montelukast (SINGULAIR) 10 mg tablet Take 1 tablet by mouth daily at bedtime. - ipratropium bromide (ATROVENT) 42 mcg (0.06 %) nasal spray USE 2 SPRAYS IN THE NOSE THREE TIMES DAILY. - EPINEPHrine (EPIPEN) 0.3 mg/0.3 mL auto-injector Inject 0.3 mL intramuscularly as directed. Okay to use generic - semaglutide (OZEMPIC) 0.25 mg or 0.5 mg(2 mg/1.5 mL) pen Inject 0.25 mg subcutaneously one time a week. - albuterol HFA (PROVENTIL HFA, VENTOLIN HFA) 90 mcg/actuation inhaler Inhale 2 Puffs as instructed every 4 hours as needed. Problem List As Of Date 05/31/2024 Noted Resolved Muscle tension dysphonia [R49.0] 01/24/2012 LPRD (laryngopharyngeal reflux disease) [K21.9] 02/16/2012 Seasonal allergic rhinitis due to pollen [J30.1]08/13/2018 Chronic cough [R05.3] 08/13/2018 Mild persistent asthma without complication [J4*08/13/2018 Urgency of urination [R39.15] 10/30/2018 Frequency of urination [R35.0] 10/30/2018 Dysuria [R30.0] 11/29/2018 Essential (primary) hypertension [I10] Hyperlipemia [E78.5] Generalized anxiety disorder [F41.1] Chronic insomnia [F51.04] 09/09/2020 Vasomotor rhinitis [J30.0] 12/06/2021 Allergic rhinitis due to dust mite [J30.89] 12/20/2022 Allergic rhinitis due to mold [J30.89] 12/20/2022 Encounter Status:Closed by VIJAY ARMENDARIZ on 05/31/24 Normal [facility] CBC W/Diff, Automatedon 07-2 Absolute Lymph 2.27 X10 3/uL Normal 0.83-4.51 [facility] Comment on above: Performed By: #### L [id number], L100.0100, L400.0001, L506.1000, L500.4050, L500.4100, L501.9520 #### [facility] [address] [place], [address] Absolute Neut 3.9 X10 3/uL Normal 2.0-7.7 [facility] Comment on above: Performed By: #### L 501.9910, L100.0100, L400.0001, L506.1000, L500.4050, L500.4100, [id number] #### [facility] [address] [facility] [place], [address] Basophils/100 WBC (Bld) 0.9 % Normal 0-1 [facility] Comment on above: Performed By: #### L 501.9910, L100.0100, L400.0001, L506.1000, L500.4050, L500.4100, [id number] #### [facility] [address] [place], [address] Eosinophils/100 WBC (Bld) 2.0 % Normal 0-5 [facility] Comment on above: Performed By: #### L 501.9910, L100.0100, L400.0001, L506.1000, L500.4050, L500.4100, [id number] #### [facility] [address] [place], [address] Erythrocyte distribution width (RBC) [Ratio] 12.5 % Normal 11.6-14.6 [facility] Comment on above: Performed By: #### L 501.9910, L100.0100, L400.0001, L506.1000, L500.4050, L500.4100, [id number] #### [facility] [address] [place], [address] Hematocrit (Bld) [Volume fraction] 44.6 % Normal 40-54 [facility] Comment on above: Performed By: #### L 501.9910, L100.0100, L400.0001, L506.1000, L500.4050, L500.4100, L501.9520 #### [facility] [address] [place], [address] Hemoglobin (Bld) [Mass/Vol] 15.3 g/dL Normal 13.0-16.5 [facility] Comment on above: Performed By: #### L 501.9910, L100.0100, L400.0001, L506.1000, L500.4050, L500.4100, L501.9520 #### [facility] [address] [place], [address] IG% 0.100 Normal 0.0-0.9 [facility] Comment on above: Result Comment: IG% - Immature Granulocytes (promyelocytes, myelocytes and metamyelocytes) > 1% indicates that a LEFT SHIFT is Present. Performed By: #### L 501.9910, L100.0100, L400.0001, L506.1000, L500.4050, L500.4100, L501.9520 #### [facility] [address] [place], [address] Lymphocytes/100 WBC (Bld) 32.7 % Normal 19-41 [facility] Comment on above: Performed By: #### L 501.9910, L100.0100, L400.0001, L506.1000, L500.4050, L500.4100, L501.9520 #### [facility] [address] [place], [address] MCH (RBC) [Entitic mass] 31.4 pg Normal 27.0-32.0 [facility] Comment on above: Performed By: #### L 501.9910, L100.0100, L400.0001, L506.1000, L500.4050, L500.4100, L501.9520 #### [facility] [address] [place], [address] MCHC (RBC) [Mass/Vol] 34.3 g/dL Normal 32-36 [facility] Comment on above: Performed By: #### L 501.9910, L100.0100, L400.0001, L506.1000, L500.4050, L500.4100, L501.9520 #### [facility] [address] [place], [address] MCV (RBC) [Entitic vol] 91.6 fL Normal 80-94 [facility] Comment on above: Performed By: #### L 501.9910, L100.0100, L400.0001, L506.1000, L500.4050, L500.4100, L501.9520 #### [facility] [address] [place], [address] Monocytes/100 WBC (Bld) 8.6 % Normal 0-10 [facility] Comment on above: Performed By: #### L 501.9910, L100.0100, L400.0001, L506.1000, L500.4050, L500.4100, [id number] #### [facility] [address] [place], [address] Neutrophils/100 WBC (Bld) 55.7 % Normal 47-70 [facility] Comment on above: Performed By: #### L 501.9910, L100.0100, L400.0001, L506.1000, L500.4050, L500.4100, L501.9520 #### [facility] [address] [place], [address] Nucleated RBC (Bld) [#/Vol] 0 10*3/uL Normal 0-5 [facility] Comment on above: Performed By: #### L 501.9910, L100.0100, L400.0001, L506.1000, L500.4050, L500.4100, L501.9520 #### [facility] [address] [place], [address] Platelet mean volume (Bld) [Entitic vol] 12.8 fL High 6.2-12.0 [facility] Comment on above: Performed By: #### L 501.9910, L100.0100, L400.0001, L506.1000, L500.4050, L500.4100, L501.9520 #### [facility] [address] [place], [address] Platelets (Bld) [#/Vol] 144 10*3/uL Low 150-450 [facility] Comment on above: Performed By: #### L 501.9910, L100.0100, L400.0001, L506.1000, L500.4050, L500.4100, L501.9520 #### [facility] [address] [place], [address] RBC (Bld) [#/Vol] 4.87 10*6/uL Normal 4.6-6.2 [facility] Comment on above: Performed By: #### L 501.9910, L100.0100, L400.0001, L506.1000, L500.4050, L500.4100, L501.9520 #### [facility] [address] [place], [address] RDW SD 42.1 fl Normal 35.1-43.9 [facility] Comment on above: Performed By: #### L 501.9910, L100.0100, L400.0001, L506.1000, L500.4050, L500.4100, L501.9520 #### [facility] [address] [place], [address] WBC (Bld) [#/Vol] 7.0 10*3/uL Normal 4.4-11.0 [facility] Comment on above: Performed By: #### L 501.9910, L100.0100, L400.0001, L506.1000, L500.4050, L500.4100, L501.9520 #### [facility] [address] [place], [address] Comprehensive Metabolic Prof [facility] 04-05-2024 Albumin [Mass/Vol] 3.6 g/dL Normal 3.2-5.0 [facility] Comment on above: Performed By: #### L 501.9910, L100.0100, L400.0001, L506.1000, L500.4050, L500.4100, L501.9520 #### [facility] [address] [place], [address] Albumin/Globulin [Mass ratio] 0.9 {ratio} Normal 0.9-2.4 [facility] Comment on above: Performed By: #### L 501.9910, L100.0100, L400.0001, L506.1000, L500.4050, L500.4100, L501.9520 #### [facility] [address] [place], [address] ALK P 134 U/L High 45-117 [facility] Comment on above: Performed By: #### L 501.9910, L100.0100, L400.0001, L506.1000, L500.4050, L500.4100, L501.9520 #### [facility] [address] [place], [address] ALT [Catalytic activity/Vol] 39 U/L Normal 16-61 [facility] Comment on above: Performed By: #### L 501.9910, L100.0100, L400.0001, L506.1000, L500.4050, L500.4100, L501.9520 #### [facility] [address] [place], [address] AST [Catalytic activity/Vol] 29 U/L Normal 15-37 [facility] Comment on above: Performed By: #### L 501.9910, L100.0100, L400.0001, L506.1000, L500.4050, L500.4100, L501.9520 #### [facility] [address] [place], [address] Bilirubin [Mass/Vol] 0.60 mg/dL Normal 0.20-1.00 [facility] Comment on above: Result Comment: For patients on eltrombopag therapy, use of Dimension [place] TBIL is not recommended. Performed By: #### L 501.9910, L100.0100, L400.0001, L506.1000, L500.4050, L500.4100, L501.9520 #### [facility] [address] [place], [address] BUN/CRE 12.4 RATIO Normal 10-20 [facility] Comment on above: Performed By: #### L 501.9910, L100.0100, L400.0001, L506.1000, L500.4050, L500.4100, L501.9520 #### [facility] [address] [place], [address] CA,Total 8.9 mg/dL Normal 8.5-10.1 [facility] Comment on above: Performed By: #### L 501.9910, L100.0100, L400.0001, L506.1000, L500.4050, L500.4100, L501.9520 #### [facility] [address] [place], [address] Chloride [Moles/Vol] 108 mmol/L High 98-107 [facility] Comment on above: Performed By: #### L 501.9910, L100.0100, L400.0001, L506.1000, L500.4050, L500.4100, L501.9520 #### [facility] [address] [place], [address] CO2 [Moles/Vol] 28.0 mmol/L Normal 21.0-32.0 [facility] Comment on above: Performed By: #### L 501.9910, L100.0100, L400.0001, L506.1000, L500.4050, L500.4100, L501.9520 #### [facility] [address] [place], [address] Creatinine [Mass/Vol] 1.13 mg/dL Normal 0.70-1.30 [facility] Comment on above: Result Comment: The validity of the calculated GFR GFRAA in patients over 70 years has not been determined. Clinical correlation is essential. Performed By: #### L 501.9910, L100.0100, L400.0001, L506.1000, L500.4050, L500.4100, L501.9520 #### [facility] [address] [place], [address] EST GFR - AA 82 mL/min Normal >60 [facility] Comment on above: Result Comment: Afri can Malagasy GFR Calc Performed By: #### L 501.9910, L100.0100, L400.0001, L506.1000, L500.4050, L500.4100, L501.9520 #### [facility] [address] [place], [address] GAP 3 Low 5-15 [facility] Comment on above: Performed By: #### L 501.9910, L100.0100, L400.0001, L506.1000, L500.4050, L500.4100, L501.9520 #### [facility] [address] [place], [address] GFR/1.73 sq M.predicted among non-blacks MDRD (S/P/Bld) [Vol rate/Area] 68 mL/min/{1.73_m2} Normal >60 [facility] Comment on above: Result Comment: Non- GFR Calc Performed By: #### L 501.9910, L100.0100, L400.0001, L506.1000, L500.4050, L500.4100, L501.9520 #### [facility] [address] [place], [address] Globulin (S) [Mass/Vol] 3.9 g/dL Normal 2.2-4.2 [facility] Comment on above: Performed By: #### L 501.9910, L100.0100, L400.0001, L506.1000, L500.4050, L500.4100, L501.9520 #### [facility] [address] [place], [address] Glucose [Mass/Vol] 91 mg/dL Normal 74-106 [facility] Comment on above: Performed By: #### L 501.9910, L100.0100, L400.0001, L506.1000, L500.4050, L500.4100, L501.9520 #### [facility] [address] [place], [address] Potassium [Moles/Vol] 4.1 mmol/L Normal 3.5-5.1 [facility] Comment on above: Performed By: #### L 501.9910, L100.0100, L400.0001, L506.1000, L500.4050, L500.4100, L501.9520 #### [facility] [address] [place], [address] Sodium [Moles/Vol] 139 mmol/L Normal 136-145 [facility] Comment on above: Performed By: #### L 501.9910, L100.0100, L400.0001, L506.1000, L500.4050, L500.4100, L501.9520 #### [facility] [address] [place], [address] T PROT 7.5 g/dL Normal 6.4-8.2 [facility] Comment on above: Performed By: #### L 501.9910, L100.0100, L400.0001, L506.1000, L500.4050, L500.4100, L501.9520 #### [facility] [address] [place], [address] Urea nitrogen [Mass/Vol] 14 mg/dL Normal 7-18 [facility] Comment on above: Performed By: #### L 501.9910, L100.0100, L400.0001, L506.1000, L500.4050, L500.4100, L501.9520 #### [facility] [address] [place], [address] Lipid Profileon 04-05-2024 Cholesterol [Mass/Vol] 212 mg/dL High 200 [facility] Comment on above: Result Comment: <200 mg/dL Desirable 200-240 mg/dL Borderline >240 mg/dL High Risk Performed By: #### L 501.9910, L100.0100, L400.0001, L506.1000, L500.4050, L500.4100, L501.9520 #### [facility] [address] [place], [address] Cholesterol in HDL [Mass/Vol] 53 mg/dL Normal [facility] Comment on above: Result Comment: The drugs N-Acetylcysteine and Metamizole may falsely depress this assay. Reference Range HDL <40 mg/dL Low HDL Cholesterol HDL >or= 60 mg/dL High HDL Cholesterol Performed By: #### L 501.9910, L100.0100, L400.0001, L506.1000, L500.4050, L500.4100, L501.9520 #### [facility] [address] [place], [address] Cholesterol in LDL [Mass/Vol] 136 mg/dL High 0-130 [facility] Comment on above: Performed By: #### L 501.9910, L100.0100, L400.0001, L506.1000, L500.4050, L500.4100, L501.9520 #### [facility] [address] [place], [address] Cholesterol in VLDL [Mass/Vol] 23 mg/dL Normal 5-40 [facility] Comment on above: Performed By: #### L 501.9910, L100.0100, L400.0001, L506.1000, L500.4050, L500.4100, L501.9520 #### [facility] [address] [place], [address] Triglyceride [Mass/Vol] 115 mg/dL Normal [facility] Comment on above: Result Comment: The drugs N-Acetylcysteine and Metamizole may falsely depress this assay. Serum Triglycerides Reference Interval Normal <150 mg/dL Borderline high 150 - 199 mg/dL High 200 - 499 mg/dL Very High > or = 500 mg/dL Performed By: #### L 501.9910, L100.0100, L400.0001, L506.1000, L500.4050, L500.4100, L501.9520 #### [facility] [address] [place], [address] PSA,Total - Annual Screenon 04-05-2024 PSA,TOT SCREEN 3.88 ng/mL Normal 0.00-4.00 [facility] Comment on above: Result Comment: This test was performed using the TPSA assay method for the [employer] chemistry system. Values obtained with different assay methods cannot be used interchangably. When changing PSA assays in the course of monitoring a patient, additional sequential testing should be carried out to confirm baseline values. Performed By: #### L 501.9910, L100.0100, L400.0001, L506.1000, L500.4050, L500.4100, L501.9520 #### [facility] [address] [place], [address] Thyroid Stim Hormone (TSH)on 04-05-2024 TSH 2.95 uIU/mL Normal 0.358-3.74 [facility] Comment on above: Performed By: #### L 501.9910, L100.0100, L400.0001, L506.1000, L500.4050, L500.4100, L501.9520 #### [facility] [address] [place], [address] Urinalysis, Completeon 04-05 BACTERIA 0 SEEN Normal None Seen [facility] Comment on above: Order Comment: CLEAN CATCH Performed By: #### L 501.9910, L100.0100, L400.0001, L506.1000, L500.4050, L500.4100, L501.9520 #### [facility] [address] [place], [address] EPI,SQUAMOUS 0 SEEN Normal 0-5 [facility] Comment on above: Order Comment: CLEAN CATCH Performed By: #### L 501.9910, L100.0100, L400.0001, L506.1000, L500.4050, L500.4100, L501.9520 #### [facility] [address] [place], [address] Mucus Ql (Urine sed) 0 SEEN Normal [facility] Comment on above: Order Comment: CLEAN CATCH Performed By: #### L 501.9910, L100.0100, L400.0001, L506.1000, L500.4050, L500.4100, L501.9520 #### [facility] [address] [place], [address] RBC 0 SEEN Normal 0-5 [facility] Comment on above: Order Comment: CLEAN CATCH Performed By: #### L 501.9910, L100.0100, L400.0001, L506.1000, L500.4050, L500.4100, L501.9520 #### [facility] [address] [place], [address] WBC 0 SEEN Normal 0-5 [facility] Comment on above: Order Comment: CLEAN CATCH Performed By: #### L 501.9910, L100.0100, L400.0001, L506.1000, L500.4050, L500.4100, L501.9520 #### [facility] [address] [place], [address] Vitamin D,25 Hydroxyon 04-05 Vitamin D 25-OH 66.9 ng/mL Normal [facility] Comment on above: Result Comment: Remedios min D 25(OH) Status Range Deficiency <20 ng/mL (50nmol/L) Insufficiency 20 - 30 ng/mL (50 - 75 nmol/L) Sufficiency 30 - 100 ng/mL (75 - 250 nmol/L) Toxicity >100 ng/mL (>250 nmol/L) Performed By: #### L 501.9910, L100.0100, L400.0001, L506.1000, L500.4050, L500.4100, L501.9520 #### [facility] [address] [place], [address] No Panel InformationOrdered By: Joshua Eller on 06-19-2023 Prostate Specific Antigen Total 3.18 ng/mL 0.0-4.0 [facility] Comment on above: This test was perfor med using the TPSA assay method for the[employer] chemistry system. Values obtained with differentassay methods cannot be used interchangably.When changing PSA assays in the course of monitoring apatient, additional sequential testing should be carriedout to confirm baseline values. PSA,Total- Diagnosticon 10-0 PSA, DIAGNOSTIC 3.18 ng/mL Normal 0.0-4.0 [facility] Comment on above: Result Comment: This test was performed using the TPSA assay method for the [employer] chemistry system. Values obtained with different assay methods cannot be used interchangably. When changing PSA assays in the course of monitoring a patient, additional sequential testing should be carried out to confirm baseline values. Performed By: #### L 501.9940 #### [facility] [address] [place], [place], [address] No Panel Informationon 06-09 Prostate Specific Antigen Screen 2.86 ng/mL 0.00-4.00 [facility] Work Phone: Comment on above: This test was perfor med using the TPSA assay method for the[employer] chemistry system. Values obtained with differentassay methods cannot be used interchangably.When changing PSA assays in the course of monitoring apatient, additional sequential testing should be carriedout to confirm baseline values. Basophil percentageon 2021 Bilirubin [Mass/Vol] 0.40 mg/dL 0.20-1.00 [facility] Work Phone: Comment on above: For patients on eltr ombopag therapy, use of Dimension [place] TBIL is not recommended. Protein [Mass/Vol] 6.9 g/dL 6.4-8.2 [facility] Work Phone: Direct bilirubinon Bilirubin.direct [Mass/Vol] 0.13 mg/dL 0.00-0.30 [facility] Work Phone: Laboratory - Chemistry and C hemistry - challengeon 01-20-2022 ALP [Catalytic activity/Vol] 131 U/L 45-117 [facility] Work Phone: ALT [Catalytic activity/Vol] 41 U/L 16-61 [facility] Work Phone: Amylase [Catalytic activity/Vol] 53 U/L 15-85 [facility] Work Phone: Globulin (S) [Mass/Vol] 3.5 g/dL 2.2-4.2 [facility] Work Phone: No Panel Informationon 01-20 Thyroid Stimulating Hormone (TSH) 3.17 uIU/mL 0.358-3.74 [facility] Work Phone: Serum or plasma albumin kayla urement (mass/volume)on 01-20-2022 Albumin [Mass/Vol] 3.4 g/dL 3.2-5.0 [facility] Work Phone: Thin prep Papanicolaou smear with manual screeningon 01-20-2022 Thin prep Papanicolaou smear with manual screening 29 U/L 15-37 [facility] Work Phone: Absolute lymphocyte counton 12-21-2021 Lymphocytes Auto (Unsp spec) [#/Vol] 3.33 10*3/uL 0.83-4.51 [facility] Work Phone: Basophil percentageon 2021 Basophil percentage 0-5 SEEN /hpf [facility] Work Phone: Basophils/100 WBC (Bld) 0.8 % 0-1 [facility] Work Phone: [phone] Bilirubin [Mass/Vol] 0.50 mg/dL 0.20-1.00 [facility] Work Phone: Comment on above: For patients on eltr ombopag therapy, use of Dimension [place] TBIL is not recommended. Chloride [Moles/Vol] 106 mmol/L [facility] Work Phone: Cholesterol [Mass/Vol] 234 mg/dL <200 [facility] Work Phone: Comment on above: <200 mg/dL Desirable 200-240 mg/dL Borderline >240 mg/dL High Risk Eosinophils/100 WBC (Bld) 2.0 % 0-5 [facility] Work Phone: Glucose [Mass/Vol] 94 mg/dL [facility] Work Phone: Neutrophils (Bld) [#/Vol] 5.4 10*3/uL 2.0-7.7 [facility] Work Phone: Neutrophils/100 WBC (Bld) 54.1 % 47-70 [facility] Work Phone: Potassium [Moles/Vol] 4.0 mmol/L [facility] Work Phone: Protein [Mass/Vol] 7.7 g/dL [facility] Work Phone: Sodium [Moles/Vol] 138 mmol/L [facility] Work Phone: Triglyceride [Mass/Vol] 319 mg/dL High [facility] Work Phone: Comment on above: The drugs N-Acetylcy steine and Metamizole may falsely depress this assay.Serum Triglycerides Reference Interval Normal <150 mg/dL Borderline high 150 - 199 mg/dL High 200 - 499 mg/dL Very High > or = 500 mg/dL WBC (Bld) [#/Vol] 9.9 10*3/uL 4.4-11.0 [facility] Work Phone: Bilirubin Test strip Ql (U)o n 12-21-2021 Bilirubin Ql (U) Negative Negative [facility] Work Phone: Blood erythrocytes count (nu mber/volume)on 12-21-2021 RBC (Bld) [#/Vol] 4.92 10*6/uL 4.6-6.2 [facility] Work Phone: Blood hemoglobin measurement (mass/volume)on 12-21-2021 Hemoglobin (Bld) [Mass/Vol] 15.6 g/dL 13.0-16.5 [facility] Work Phone: Blood lymphocytes/100 leukoc yteson 12-21-2021 Lymphocytes/100 WBC (Bld) 33.5 % 19-41 [facility] Work Phone: Blood monocytes/100 leukocyt eson 12-21-2021 Monocytes/100 WBC (Bld) 8.9 % 0-10 [facility] Work Phone: Blood platelet mean volumeon 12-21-2021 Platelet mean volume (Bld) [Entitic vol] 12.9 fL 6.2-12.0 [facility] Work Phone: CMP EXTERNAL QAIon Anion gap [Moles/Vol] 6 mmol/L [facility] AST [Catalytic activity/Vol] 47 U/L High [facility] Bilirubin [Mass/Vol] 0.5 mg/dL [facility] Calcium [Mass/Vol] 7.9 mg/dL [facility] CO2 [Moles/Vol] 26 mmol/L [facility] Creatinine per volume 1.08 [facility] eGFR-All Other Races 72 [facility] GFR/1.73 sq M.predicted among blacks MDRD (S/P/Bld) [Vol rate/Area] 87 mL/min/{1.73_m2} [facility] Determination of erythrocyte mean corpuscular volume (MCV)on 12-21-2021 MCV (RBC) [Entitic vol] 92.1 fL 80-94 [facility] Work Phone: Hematocrit Auto (Bld) [Volum e fraction]on 12-21-2021 Hematocrit (Bld) [Volume fraction] 45.3 % 40-54 [facility] Work Phone: Ketones Test strip Ql (U)on 12-21-2021 Ketones Ql (U) Negative Negative [facility] Work Phone: LIPID PANEL (OUTSIDE)on 12-10 Cholesterol [Mass/Vol] 200 mg/dL High Cl [facility] LDL:HDL Ratio [facility] Non-HDL Cholesterol [facility] TC:HDL Ratio [facility] VLDL Cholesterol [facility] - Chemistry and C hemistry - challengeon 12-21-2021 ALP [Catalytic activity/Vol] 143 U/L High [facility] Work Phone: [phone] ALT [Catalytic activity/Vol] 80 U/L High [facility] Work Phone: [phone] CO2 [Moles/Vol] 26.0 mmol/L 21.0-32.0 [facility] Work Phone: [phone] Globulin (S) [Mass/Vol] 3.9 g/dL 2.2-4.2 [facility] Work Phone: [phone] Urea nitrogen/Creatinine [Mass ratio] 15.7 mg/mg 10-20 [facility] Work Phone: [phone] Laboratory - Hematology and Cell countson 12-21-2021 Erythrocyte distribution width (RBC) [Entitic vol] 43.5 fL 35.1-43.9 [facility] Work Phone: Erythrocyte distribution width (RBC) [Ratio] 12.8 % 11.6-14.6 [facility] Work Phone: [phone] Immature granulocytes/100 WBC (Bld) 0.700 % 0.0-0.9 [facility] Work Phone: [phone] Comment on above: IG% - Immature Granu locytes (promyelocytes, myelocytes and metamyelocytes) > 1% indicates that a LEFT SHIFT is Present. MCH (RBC) [Entitic mass] 31.7 pg 27.0-32.0 [facility] Work Phone: Nucleated RBC/100 WBC (Bld) [Ratio] 0 % 0-5 [facility] Work Phone: MCHC Auto (RBC) [Mass/Vol]on 12-21-2021 MCHC (RBC) [Mass/Vol] 34.4 g/dL 32-36 [facility] Work Phone: Mucus LM Ql (Urine sed)on Mucus Ql (Urine sed) 0 SEEN /hpf [facility] Work Phone: Nitrite Test strip Ql (U)on 12-21-2021 Nitrite Ql (U) Negative Negative [facility] Work Phone: No Panel Informationon 12-21 Estimated GFR (MDRD) Amer 87 mL/min >60 [facility] Work Phone: Comment on above: GFR Calc Estimated GFR (MDRD) Non-Af Amer 72 mL/min >60 [facility] Work Phone: Comment on above: Non- GFR Calc Thyroid Stimulating Hormone (TSH) 5.81 uIU/mL 0.358-3.74 [facility] Work Phone: Vitamin D 25-Hydroxy 66.7 ng/mL [facility] Work Phone: Comment on above: Vitamin D 25(OH) Sta tus Range Deficiency <20 ng/mL (50nmol/L) Insufficiency 20 - 30 ng/mL (50 - 75 nmol/L) Sufficiency 30 - 100 ng/mL (75 - 250 nmol/L) Toxicity >100 ng/mL (>250 nmol/L) Platelets bldon 12-21-2021 Platelets (Bld) [#/Vol] 162 10*3/uL 150-450 [facility] Work Phone: Protein Test strip Ql (U)on 12-21-2021 Protein Ql (U) Negative Negative [facility] Work Phone: Serum or plasma albumin kayla urement (mass/volume)on 12-21-2021 Albumin [Mass/Vol] 3.8 g/dL [facility] Work Phone: Serum or plasma albumin/glob ulin mass ratioon 12-21-2021 Albumin/Globulin [Mass ratio] 1.0 {ratio} 0.9-2.4 [facility] Work Phone: Serum or plasma calcium kayla urement (mass/volume)on 12-21-2021 Calcium [Mass/Vol] 8.9 mg/dL 8.5-10.1 [facility] Work Phone: Serum or plasma cholesterol in HDL measurement (mass/volume)on 12-21-2021 Cholesterol in HDL [Mass/Vol] 42 mg/dL [facility] Work Phone: Comment on above: The drugs N-Acetylcy steine and Metamizole may falsely depress this assay. Reference Range HDL <40 mg/dL Low HDL Cholesterol HDL >or= 60 mg/dL High HDL Cholesterol Serum or plasma cholesterol in VLDL measurement (mass/volume)on 12-21-2021 Cholesterol in VLDL [Mass/Vol] 64 mg/dL 5-40 [facility] Work Phone: Serum or plasma creatinine m easurement (mass/volume)on 12-21-2021 Creatinine [Mass/Vol] 1.08 mg/dL 0.70-1.30 [facility] Work Phone: Comment on above: The validity of the calculated GFR & GFRAA in patients over 70 years has not been determined. Clinical correlation is essential. Serum or plasma low density lipoprotein (LDL) cholesterol measurement (mass/volume)on 12-21-2021 Cholesterol in LDL [Mass/Vol] 128 mg/dL [facility] Work Phone: Serum or plasma urea nitroge n measurement (mass/volume)on 12-21-2021 Urea nitrogen [Mass/Vol] 17 mg/dL [facility] Work Phone: Squamous epithelial cells de tection in urine sediment by light microscopyon 12-21-2021 Epithelial cells.squamous LM Ql (Urine sed) 0 SEEN /hpf [facility] Work Phone: Thin prep Papanicolaou smear with manual screeningon 12-21-2021 Thin prep Papanicolaou smear with manual screening 47 U/L 15-37 [facility] Work Phone: Thin prep Papanicolaou smear with manual screening 6 5-15 [facility] Work Phone: Urine blood detectionon 12-10 RBC Ql (U) Negative Negative [facility] Work Phone: RBC Ql (U) 0 SEEN /hpf [facility] Work Phone: Urine clarityon 12-21-2021 Clarity (U) Clear Clear [facility] Work Phone: Urine color determinationon 12-21-2021 Color (U) Yellow Yellow [facility] Work Phone: Urine glucose detectionon Glucose Ql (U) Normal mg/dl Normal [facility] Work Phone: Urine leukocyte esterase det ection by dipstickon 12-21-2021 Leukocyte esterase Test strip Ql (U) Negative Negative [facility] Work Phone: Urine pHon 12-21-2021 pH (U) 5.0 [pH] [facility] Work Phone: Urine sediment bacteria coun t by microscopy (number/high power field)on 12-21-2021 Bacteria LM.HPF (Urine sed) [#/Area] 0 /[HPF] None Seen [facility] Work Phone: Urine specific gravity measu rementon 12-21-2021 Specific gravity (U) [Rel density] 1.025 [facility] Work Phone: Urobilinogen Auto test strip Ql (U)on 12-21-2021 Urobilinogen Ql (U) Normal mg/dl Normal [facility] Work Phone: Misc. Teston 05-18-2019 Misc. Test Result SEE BELOW Normal [facility] Comment on above: Result Comment: Juan Manuel t Ragweed IgE <0.35 <0.35 KU/L Giant Ragweed-Class 0 0 Performing Laboratory: [facility] [employer] [address] [place] [address] Performed By: #### G OX #### [place] [id number] Short Ragweed IgEon 05-17-20 19 Short Ragweed IgE SEE BELOW Normal [facility] Comment on above: Result Comment: Mick t Ragweed IgE <0.35 <0.35 KU/L Short Ragweed-Class 0 0 Performing Laboratory: [facility] [address] [place] [address] Performed By: #### W EEDX #### [facility] [address] [place] [address] Misc. Teston 05-16-2019 [facility] Order Code GRAGWD Normal [facility] Comment on above: Performed By: #### G OX #### [facility] [address] [place] [address] Test Name Giant Ragweed Normal [facility] Comment on above: Performed By: #### G OX #### [facility] [address] [place] [id number] Vital Signs Date Time Vital Sign Value Performing Clinician Neo mcdowell 09-19-2024 14:41-0500 Body height 180.3 cm Jacob Adam MD Work Phone: [facility] 09-19-2024 14:41-0500 Body mass index (BMI) [Ratio] 29.29 kg/m2 Jacob Adam MD Work Phone: [facility] 09-19-2024 14:41-0500 Body temperature 98.71 [degF] Jacob Adam MD Work Phone: [facility] 09-19-2024 14:41-0500 Body weight 95.25 kg Jacob Adam MD Work Phone: [facility] 09-19-2024 14:41-0500 Diastolic blood pressure 71 mm[Hg] Jacob Adam MD Work Phone: [facility] 09-19-2024 14:41-0500 Heart rate 83 /min Jacob Adam MD Work Phone: [facility] 09-19-2024 14:41-0500 Respiratory rate 18 /min Jacob Adam MD Work Phone: [facility] 09-19-2024 14:41-0500 SaO2% (BldA) [Mass fraction] 95 % Jacob Adam MD Work Phone: [facility] 09-19-2024 14:41-0500 Systolic blood pressure 110 mm[Hg] Jacob Adam MD Work Phone: [facility] 02-09-2024 09:40-0400 Body height 180.3 cm Cobb Kamaljit DO Work Phone: [facility] 02-09-2024 09:40-0400 Body mass index (BMI) [Ratio] 29.71 kg/m2 Tanvir Kamaljit DO Work Phone: [facility] 02-09-2024 09:40-0400 Body temperature 97.7 [degF] Tanvir Kamaljit DO Work Phone: [facility] 02-09-2024 09:40-0400 Body weight 96.62 kg Cobb Kamaljit DO Work Phone: [facility] 02-09-2024 09:40-0400 Diastolic blood pressure 84 mm[Hg] Cobb Kamaljit DO Work Phone: [facility] 02-09-2024 09:40-0400 Heart rate 70 /min Cobb Kamaljit DO Work Phone: [facility] 02-09-2024 09:40-0400 SaO2% (BldA) [Mass fraction] 96 % Tanvir Kamaljit DO Work Phone: [facility] 02-09-2024 09:40-0400 Systolic blood pressure 120 mm[Hg] Cobb Kamaljit DO Work Phone: [facility] 08-11-2023 08:40-0500 Body height 180.3 cm Jacob Adam MD Work Phone: [facility] 08-11-2023 08:40-0500 Body temperature 97.5 [degF] Jacob Adam MD Work Phone: [facility] 08-11-2023 08:40-0500 Body weight 96.62 kg Jacob Adam MD Work Phone: [facility] 08-11-2023 08:40-0500 Diastolic blood pressure 72 mm[Hg] Jacob Adam MD Work Phone: [facility] 08-11-2023 08:40-0500 Heart rate 73 /min Jacob Adam MD Work Phone: [facility] 08-11-2023 08:40-0500 Respiratory rate 20 /min Jacob Adam MD Work Phone: [facility] 08-11-2023 08:40-0500 SaO2% (BldA) [Mass fraction] 96 % Jacob Adam MD Work Phone: [facility] 08-11-2023 08:40-0500 Systolic blood pressure 115 mm[Hg] Jacob Adam MD Work Phone: [facility] 06-21-2023 13:29-0400 Body height 180.3 cm Joshua Eller MD Work Phone: [facility] 06-21-2023 13:29-0400 Body weight 92.53 kg Joshua Eller MD Work Phone: [facility] 06-21-2023 13:29-0400 Heart rate 89 /min Joshua Eller MD Work Phone: [facility] 06-21-2023 13:29-0400 SaO2% (BldA) [Mass fraction] 95 % Joshua Eller MD Work Phone: [facility] 06-05-2023 15:11-0400 Diastolic blood pressure 70 mm[Hg] Tanvir Kamaljit DO Work Phone: [facility] 06-05-2023 15:11-0400 Systolic blood pressure 120 mm[Hg] Cobb Kamaljit DO Work Phone: [facility] 06-05-2023 14:42-0400 Body height 180.3 cm Tanvir Kamaljit DO Work Phone: [facility] 06-05-2023 14:42-0400 Body temperature 97.7 [degF] Tanvir Kamaljit DO Work Phone: [facility] 06-05-2023 14:42-0400 Body weight 92.53 kg Tanvir Kamaljit DO Work Phone: [facility] 06-05-2023 14:42-0400 Heart rate 87 /min Cobb Kamaljit DO Work Phone: [facility] 06-05-2023 14:42-0400 SaO2% (BldA) [Mass fraction] 96 % Cobb Kamaljit DO Work Phone: [facility] 12-20-2022 10:51-0400 Body height 180.3 cm Jacob Adam MD Work Phone: [facility] 12-20-2022 10:51-0400 Body temperature 98.01 [degF] Jacob Adam MD Work Phone: [facility] 12-20-2022 10:51-0400 Body weight 99.79 kg Jacob Adam MD Work Phone: [facility] 12-20-2022 10:51-0400 Diastolic blood pressure 74 mm[Hg] Jacob Adam MD Work Phone: [facility] 12-20-2022 10:51-0400 Heart rate 63 /min Jacob Adam MD Work Phone: [facility] 12-20-2022 10:51-0400 Respiratory rate 20 /min Jacob Adam MD Work Phone: [facility] 12-20-2022 10:51-0400 SaO2% (BldA) [Mass fraction] 99 % Jacob Adam MD Work Phone: [facility] 12-20-2022 10:51-0400 Systolic blood pressure 132 mm[Hg] Jacob Adam MD Work Phone: [facility] 11-14-2022 14:24-0500 Body height 180.3 cm Tanvir Kamaljit DO Work Phone: [facility] 11-14-2022 14:24-0500 Body temperature 97.59 [degF] Tanvir Kamaljit DO Work Phone: [facility] 11-14-2022 14:24-0500 Body weight 102.06 kg Tanvir Kamaljit DO Work Phone: [facility] 11-14-2022 14:24-0500 Diastolic blood pressure 80 mm[Hg] Cobb Kamaljit DO Work Phone: [facility] 11-14-2022 14:24-0500 Heart rate 78 /min Tanvir Kamaljit DO Work Phone: [facility] 11-14-2022 14:24-0500 SaO2% (BldA) [Mass fraction] 96 % Cobb Kamaljit DO Work Phone: [facility] 11-14-2022 14:24-0500 Systolic blood pressure 124 mm[Hg] Tanvir Kamaljit DO Work Phone: [facility] 06-15-2022 13:30-0400 Body height 180.3 cm Joshua Eller MD Work Phone: [facility] 06-15-2022 13:30-0400 Body weight 99.79 kg Joshua Eller MD Work Phone: [facility] 12-06-2021 07:25-0400 Body height 180.3 cm Carlie Braun SHIATSU THERAPIST.COMMERCIAL RETOUCHER Work Phone: [facility] 12-06-2021 07:25-0400 Body temperature 97.59 [degF] Carlie Braun SHIATSU THERAPIST.COMMERCIAL RETOUCHER Work Phone: [facility] 12-06-2021 07:25-0400 Body weight 102.06 kg Carlie Braun SHIATSU THERAPIST.COMMERCIAL RETOUCHER Work Phone: [facility] 12-06-2021 07:25-0400 Diastolic blood pressure 71 mm[Hg] Carlie Braun SHIATSU THERAPIST.COMMERCIAL RETOUCHER Work Phone: [facility] 12-06-2021 07:25-0400 Heart rate 70 /min Carlie Braun SHIATSU THERAPIST.COMMERCIAL RETOUCHER Work Phone: [facility] 12-06-2021 07:25-0400 Respiratory rate 12 /min Carlie Braun SHIATSU THERAPIST.COMMERCIAL RETOUCHER Work Phone: [facility] 12-06-2021 07:25-0400 SaO2% (BldA) [Mass fraction] 93 % Carlie Gomezrehanemely SHIATSU THERAPIST.COMMERCIAL RETOUCHER Work Phone: [facility] 12-06-2021 07:25-0400 Systolic blood pressure 153 mm[Hg] Carlie Gomeztulio SHIATSU THERAPIST.COMMERCIAL RETOUCHER Work Phone: [facility] Encounters Encounter Date Encounter Type Care Provider Facility Start: 02-10-2025 End: 02-10-2025 ambulatory [facility] Facility:[facility] Start: 02-10-2025 Patient encounter procedure [facility] Start: 02-02-2025 End: 02-04-2025 Refill [facility] DO Work Phone: [facility] [place] Comment on above: Refill Request Start: 01-26-2025 End: 01-27-2025 Refill Jacob Adam MD Work Phone: Allergy Comment on above: Refill Request Start: 09-19-2024 End: 09-19-2024 ambulatory JACOB ADAM Facility:[facility] Start: 09-19-2024 End: 09-19-2024 Patient encounter procedure Jacob Adam MD Work Phone: Allergy Comment on above: Seasonal allergic rh initis due to pollen (Primary Dx); Mild persistent asthma without complication; Vasomotor rhinitis; Chronic cough; Muscle tension dysphonia; Allergic rhinitis due to dust mite; Allergic rhinitis due to mold Start: 05-31-2024 End: 05-31-2024 Telephone encounter Jacob Adam MD Work Phone: Pulmonary Medicine Start: 04-05-2024 End: 04-05-2024 ambulatory [facility] Facility:[facility] Start: 02-09-2024 End: 02-09-2024 Patient encounter procedure Tanvir Hunter DO Work Phone: [facility] Comment on above: Essential (primary) hypertension (Primary Dx); Chronic insomnia; Generalized anxiety disorder; Mixed hyperlipidemia; Overweight with body mass index (BMI) of 29 to 29.9 in adult; Screening for thyroid disorder; Screening for prostate cancer Start: 12-11-2023 Refill Jacob Adam MD Work Phone: Allergy Comment on above: Refill Request Start: 11-14-2023 Refill Tanvir Hunter DO Work Phone: [facility] Comment on above: Refill Request Start: 11-10-2023 Refill Tanivr Hunter DO Work Phone: [facility] Comment on above: Refill Request Start: 10-23-2023 Refill Jacob Adam MD Work Phone: Allergy Comment on above: Refill Request Start: 08-11-2023 End: 08-11-2023 Patient encounter procedure Jacob Adam MD Work Phone: Allergy Comment on above: Seasonal allergic rh initis due to pollen (Primary Dx); Mild persistent asthma without complication; Vasomotor rhinitis; Chronic cough; Muscle tension dysphonia Start: 06-21-2023 End: 06-21-2023 Patient encounter procedure Joshua Eller MD Work Phone: Urology Comment on above: Nocturia (Primary Dx ); BPH with obstruction/lower urinary tract symptoms; Screening PSA (prostate specific antigen) Start: 06-19-2023 End: 06-19-2023 ambulatory [facility] Work Phone: Start: 06-19-2023 End: 06-19-2023 Patient encounter procedure [facility] Work Phone: Start: 06-19-2023 End: 06-19-2023 ambulatory Joshua Eller Facility:[facility] Start: 06-05-2023 End: 06-05-2023 Patient encounter procedure Cobb Juan Antonio Hunter DO Work Phone: [facility] Comment on above: Essential (primary) hypertension (Primary Dx); Mixed hyperlipidemia; Seasonal allergic rhinitis due to pollen; Overweight with body mass index (BMI) of 28 to 28.9 in adult Start: 03-16-2023 Refill Jacob Adam MD Work Phone: Allergy Comment on above: Refill Request Start: 01-21-2023 ambulatory Cobb Ky Hunter DO Work Phone: [facility] Comment on above: Ozempic Start: 01-16-2023 End: 01-16-2023 Patient encounter procedure Nurse Eliezer Adult [facility] Work Phone: Allergy Comment on above: Seasonal allergic rh initis due to pollen (Primary Dx); Allergic rhinitis due to dust mite; Allergic rhinitis due to mold Start: 12-20-2022 End: 12-20-2022 Patient encounter procedure Nurse El[facility]zer Adult [facility] Work Phone: Allergy Comment on above: Seasonal allergic rh initis due to pollen (Primary Dx) Seasonal allergic rh initis due to pollen (Primary Dx); Allergic rhinitis due to mold; Mild persistent asthma without complication; Vasomotor rhinitis; Chronic cough; Muscle tension dysphonia Start: 11-29-2022 End: 11-29-2022 [facility] Work Phone: Allergy Comment on above: Seasonal allergic rh initis due to pollen (Primary Dx); Allergic rhinitis due to dust mite; Allergic rhinitis due to mold Start: 11-15-2022 Refill Jacob Adam MD Work Phone: Allergy Comment on above: Refill Request Start: 11-14-2022 End: 11-14-2022 Patient encounter procedure Cobb Juan Antonio Hunter DO Work Phone: [facility] Comment on above: Essential (primary) hypertension (Primary Dx); Chronic insomnia; Generalized anxiety disorder; Mixed hyperlipidemia; Screening for thyroid disorder; Screening for prostate cancer; BMI 31.0-31.9,adult Start: 11-14-2022 ambulatory Cobb Ky Hunter DO Work Phone: [facility] [place] Comment on above: OZEMPIC Start: 11-14-2022 Telephone encounter Tanvir Hunter DO Work Phone: [facility] [place] Comment on above: Medication Problem Start: 10-19-2022 Refill Cobb Ky Hunter DO Work Phone: [facility] [place] Comment on above: Refill Request (need s appointment) Start: 10-04-2022 Telephone encounter Carlie brown SHIATSU THERAPIST.COMMERCIAL RETOUCHER Work Phone: Allergy Comment on above: Medication Problem ( [facility]) Start: 10-03-2022 Refill Carlie camacho SHIATSU THERAPIST.COMMERCIAL RETOUCHER Work Phone: Pulmonary Medicine Comment on above: Refill Request Start: 09-30-2022 End: 09-30-2022 Patient encounter procedure Nurse Eliezer Adult [facility] Work Phone: Allergy Comment on above: Seasonal allergic rh initis due to pollen (Primary Dx); Allergic rhinitis due to dust mite; Allergic rhinitis due to mold Start: 09-16-2022 End: 09-16-2022 Patient encounter procedure Nurse Eliezer Adult [facility] Work Phone: Allergy Comment on above: Seasonal allergic rh initis due to pollen (Primary Dx); Allergic rhinitis due to dust mite; Allergic rhinitis due to mold Refill Request Start: 08-30-2022 Telephone encounter Jacob suero MD Work Phone: Allergy Comment on above: Vial orders Start: 08-30-2022 End: 08-30-2022 Patient encounter procedure Nurse Eliezer Adult [facility] Work Phone: Allergy Comment on above: Seasonal allergic rh initis due to pollen (Primary Dx) Start: 08-16-2022 End: 08-16-2022 Patient encounter procedure Nurse Eliezer Adult [facility] Work Phone: Allergy Comment on above: Seasonal allergic rh initis due to pollen (Primary Dx) Start: 07-29-2022 End: 07-29-2022 Patient encounter procedure Nurse Eliezer Adult [facility] Work Phone: Allergy Comment on above: Seasonal allergic rh initis due to pollen (Primary Dx) Start: 07-28-2022 Orders Only Inge Bain MD Work Phone: Allergy Comment on above: Seasonal allergic rh initis due to pollen (Primary Dx) Start: 06-20-2022 End: 06-20-2022 Patient encounter procedure Nurse Eliezer Adult [facility] Work Phone: Allergy Comment on above: Seasonal allergic rh initis due to pollen (Primary Dx); Allergic rhinitis due to dust mite; Allergic rhinitis due to mold Start: 06-15-2022 End: 06-15-2022 Patient encounter procedure Joshua Eller MD Work Phone: Urology Comment on above: Elevated prostate sp ecific antigen (PSA) (Primary Dx); Nocturia; BPH with obstruction/lower urinary tract symptoms; Screening PSA (prostate specific antigen) Start: 06-09-2022 End: 06-09-2022 ambulatory [facility] Work Phone: Start: 06-09-2022 End: 06-09-2022 Patient encounter procedure [facility] Start: 05-12-2022 Orders Only Inge Bain MD Work Phone: Allergy Comment on above: Seasonal allergic rh initis due to pollen (Primary Dx) Start: 05-11-2022 Refill Jacob Adam MD Work Phone: Allergy Comment on above: Refill Request Start: 04-22-2022 Refill Tanvir Hunter DO Work Phone: [facility] Comment on above: Refill Request Start: 04-08-2022 ambulatory Jacob Adam MD Work Phone: Allergy Comment on above: Madi Bolanos RX [facility] on Start: 03-16-[address] [facility] Comment on above: Population Health Na vigation Outreach (ACO- Needs to Schedule PCP FU) Start: 03-16-2022 Chart abstracting Eusebia castillo [facility] [place] Comment on above: Outside Lab Results Start: 03-15-2022 End: 03-15-2022 Patient encounter procedure Nurse Eliezer Adult Peds [facility] Work Phone: Allergy Comment on above: Seasonal allergic rh initis due to pollen (Primary Dx); Allergic rhinitis due to dust mite; Allergic rhinitis due to mold Start: 03-07-2022 Telephone encounter Do Connor Merida im Allergy Adult/Pediatric [facility] Comment on above: Patient Question Start: 02-24-2022 Refill Tanvir Hunter DO Work Phone: [facility] [place] Comment on above: Refill Request (Venl afaxine) Start: 01-20-2022 End: 01-20-2022 Patient encounter procedure [facility] Start: 01-10-2022 End: 01-10-2022 Patient encounter procedure Nurse Eliezer Adult Peds [facility] Work Phone: Allergy Comment on above: Seasonal allergic rh initis due to pollen (Primary Dx) Start: 12-23-2021 Telephone encounter Tanvir Hunter DO Work Phone: [facility] Comment on above: Results (labs) Start: 12-21-2021 End: 12-21-2021 Patient encounter procedure [facility] Start: 12-15-2021 Telephone encounter Shanell harp DO Work Phone: [facility] Comment on above: Referral Information (vasomotor rhinitis) Start: 12-13-2021 End: 12-13-2021 Patient encounter procedure Nurse Eliezer Adult Peds [facility] Work Phone: Allergy Comment on above: Seasonal allergic rh initis due to pollen (Primary Dx); Allergic rhinitis due to mold; Allergic rhinitis due to dust mite Start: 12-06-2021 End: 12-06-2021 Patient encounter procedure Carlie Braun APRN.COMMERCIAL RETOUCHER Work Phone: Allergy Comment on above: Mild persistent asth ma without complication (Primary Dx); Vasomotor rhinitis; Seasonal allergic rhinitis due to pollen Start: 10-31-2021 Refill Tanvir Gerar d Kamaljit DO Work Phone: [facility] Comment on above: Refill Request (need s appt Last ov 03/11/2021 was to rtn 09/2021); Refill Request Start: 08-31-2021 Refill Cobb Gerar d Kamaljit DO Work Phone: [facility] Comment on above: Refill Request; Refi ll Request Procedures Date Procedure Procedure Detail Performing Clinician Start: 12-21-2021 CMP EXTERNAL QAI Freela nd Juan Antonio Kamaljit DO Work Phone: Start: 12-21-2021 Lipid panel Cobb Cesar petersonrd Kamaljit DO Work Phone: Start: 12-21-2021 Lipid 1996 panel - S willy or Plasma Tanvir Kamaljit DO Work Phone: Start: 11-11-2021 Adult depression screening assessment Carlie Braun APRN.COMMERCIAL RETOUCHER Work Phone: Start: 10-04-2021 Colonoscopy Eusebia villalba Start: 04-11-2016 Colonoscopy Carlie brown APRN.COMMERCIAL RETOUCHER Work Phone: Plan of Treatment Date Care Activity Detail Author Start: 04-02-2030 Urine microalbumin profile [facility] Start: 12-21-2026 Lipid 1996 panel - Serum or Plasma Lipid Screening [facility] Start: 12-21-2026 Lipid panel Lipid Screening [facility] Start: 12-21-2026 LIPID SCREEN LIPID SCREEN [facility] Start: 10-04-2026 Colonoscopy COLONOSCOPY [facility] Start: 10-04-2026 COLORECTAL CANCER SCREENING COLORECTAL CANCER SCREENING [facility] Start: 10-04-2026 Screening for malign ant neoplasm of colon [facility] Start: 09-19-2025 BP Controlled (<130/80) BP Controlle d (<130/80) [facility] Start: 09-05-2025 End: 09-05-2025 Patient encounter procedure Allergy Comment on above: follow up Start: 02-24-2025 LIPID SCREEN LIPID SCREEN [facility] Start: 02-10-2025 End: 02-10-2025 Patient encounter procedure 02/10/2025 2:30 PM [place] [address] Tanvir Hunter [address] [place] [address] Medicare wellness/ meds refill 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 jayden Disease Visit Annual PCP Team Chronic Disease Visit [facility] Start: 01-08-2025 Covid-19 Vaccine ( season) Covid-19 Vaccine ( season) [facility] Start: 12-23-2024 PROSTATE CANCER SCREENING DISCUSSION PROSTATE CANCER SCREENING DISCUSSION [facility] Start: 12-21-2024 DIABETES SCREEN DIABETES SCREEN [facility] Start: 12-21-2024 Diabetes Screening Diabetes Screenin g [facility] Start: 09-19-2024 End: 09-19-2024 Patient encounter procedure 09/19/2024 2:40 PM EST Office Visit Allergy [address] [place] [address] Jacob Adam MD [address] [facility] [place] [address] annual Allergy Comment on above: annual Start: 09-11-2024 Advance Directive Discussion Advance Directive Discussion [facility] Start: 08-11-2024 BP Controlled (<130/80) BP Controlle d (<130/80) [facility] Start: 06-05-2024 Annual PCP Team [employer] Operator jayden Disease Visit Annual PCP Team Chronic Disease Visit [facility] Start: 06-05-2024 BP Controlled (<130/80) BP Controlle d (<130/80) [facility] Start: 05-12-2024 Covid-19 Vaccine () Covid-19 Vaccine () [facility] Start: 05-12-2024 Influenza vaccination Influenza Vacc ine (#1) [facility] Start: 02-09-2024 End: 05-10-2024 25-hydroxyvitamin D3 [Mass/volume] in Serum or Plasma VITAMIN D 25 HYDROXY Lab Routine Essential (primary) hypertension Expected: 02/09/2024, Expires: 05/10/2024 [facility] Work Phone: Comment on above: Expected: 02/09/2024 , Expires: 05/10/2024 Start: 02-09-2024 End: 05-10-2024 CBC W Auto Differential panel - Blood COMPLETE BLOOD COUNT AND DIFFERENTIAL Lab Routine Mixed hyperlipidemia Expected: 02/09/2024, Expires: 05/10/2024 [facility] Comment on above: Expected: 02/09/2024 , Expires: 05/10/2024 Start: 02-09-2024 End: 05-10-2024 Comprehensive metabolic 2000 panel - Serum or Plasma COMPREHENSIVE METABOLIC PANEL Lab Routine Mixed hyperlipidemia Expected: 02/09/2024, Expires: 05/10/2024 [facility] Comment on above: Expected: 02/09/2024 , Expires: 05/10/2024 Start: 02-09-2024 End: 05-10-2024 Lipid 1996 panel - Serum or Plasma LIPID PANEL BASIC Lab Routine Mixed hyperlipidemia Expected: 02/09/2024, Expires: 05/10/2024 [facility] Comment on above: Expected: 02/09/2024 , Expires: 05/10/2024 Start: 02-09-2024 End: 05-10-2024 PSA/PROSTATE SPECIFIC ANTIGEN SCREENING PSA/PROSTATE SPECIFIC ANTIGEN SCREENING Lab Routine Screening for prostate cancer Expected: 02/09/2024, Expires: 05/10/2024 [facility] Comment on above: Expected: 02/09/2024 , Expires: 05/10/2024 Start: 02-09-2024 End: 05-10-2024 Thyrotropin [Units/volume] in Serum or Plasma THYROID STIMULATING HORMONE Lab Routine Screening for thyroid disorder Expected: 02/09/2024, Expires: 05/10/2024 [facility] Comment on above: Expected: 02/09/2024 , Expires: 05/10/2024 Start: 02-09-2024 End: 05-10-2024 Urinalysis complete panel - Urine URINALYSIS, WITH MICROSCOPIC Lab Routine Mixed hyperlipidemia Expected: 02/09/2024, Expires: 05/10/2024 [facility] Comment on above: Expected: 02/09/2024 , Expires: 05/10/2024 Start: 11-15-2023 ANNUAL PCP TEAM FIRST ASSIST JAYDEN DISEASE VISIT ANNUAL PCP TEAM CHRONIC DISEASE VISIT [facility] Start: 09-30-2023 Covid-19 Vaccine (6 - Moderna series) Covid-19 Vaccine (6 - Moderna series) [facility] Start: 09-30-2023 Covid-19 Vaccine (2022- season) Covid-19 Vaccine ( season) [facility] Start: 09-11-2023 Advance Directive Discussion Advance Directive Discussion [facility] Start: 09-11-2023 Behavioral Health Screening Behavioral Health Screening [facility] Start: 09-11-2023 Depression Assessment Depression Ass essment [facility] Start: 06-15-2023 End: 08-15-2023 PSA/PROSTSPECAG SCRN PSA/PROSTSPECAG SCRN Lab Routine Elevated prostate specific antigen (PSA) Nocturia BPH with obstruction/lower urinary tract symptoms Screening PSA (prostate specific antigen) Expected: 06/15/2023 (Approximate), Expires: 08/15/2023 [facility] Work Phone: Comment on above: Expected: 06/15/2023 (Approximate), Expires: 08/15/2023 Start: 05-12-2023 Influenza vaccination INFLUENZA (#1) [facility] Start: 02-24-2023 DIABETES SCREEN DIABETES SCREEN [facility] Start: 11-14-2022 End: 11-15-2023 CBC W Auto Differential panel - Blood CBC + DIFF Lab Routine Mixed hyperlipidemia Expected: 11/14/2022, Expires: 11/15/2023 [facility] Work Phone: Comment on above: Expected: 11/14/2022 , Expires: 11/15/2023 Start: 11-14-2022 End: 11-15-2023 Comprehensive metabolic 2000 panel - Serum or Plasma COMP METABOLIC PANEL Lab Routine Mixed hyperlipidemia Expected: 11/14/2022, Expires: 11/15/2023 [facility] Work Phone: Comment on above: Expected: 11/14/2022 , Expires: 11/15/2023 Start: 11-14-2022 End: 11-15-2023 Lipid 1996 panel - Serum or Plasma LIPID PANEL BASIC Lab Routine Mixed hyperlipidemia Expected: 11/14/2022, Expires: 11/15/2023 [facility] Work Phone: Comment on above: Expected: 11/14/2022 , Expires: 11/15/2023 Start: 11-14-2022 End: 11-15-2023 PSA/PROSTSPECAG SCRN PSA/PROSTSPECAG SCRN Lab Routine Screening for prostate cancer Expected: 11/14/2022, Expires: 11/15/2023 [facility] Work Phone: Comment on above: Expected: 11/14/2022 , Expires: 11/15/2023 Start: 11-14-2022 End: 11-15-2023 Thyrotropin [Units/volume] in Serum or Plasma TSH BLD Lab Routine Screening for thyroid disorder Expected: 11/14/2022, Expires: 11/15/2023 [facility] Work Phone: Comment on above: Expected: 11/14/2022 , Expires: 11/15/2023 Start: 11-14-2022 End: 01-14-2023 Urinalysis complete panel - Urine URINALYSIS, WITH MICROSCOPIC Lab Routine Mixed hyperlipidemia Expected: 11/14/2022, Expires: 01/14/2023 [facility] Work Phone: Comment on above: Expected: 11/14/2022 , Expires: 01/14/2023 Start: 11-11-2022 Adult depression screening assessment DEPRESSION SCREENING [facility] Start: 11-11-2022 ANNUAL PCP TEAM FIRST ASSIST JAYDEN DISEASE VISIT ANNUAL PCP TEAM CHRONIC DISEASE VISIT [facility] Start: 09-11-2022 ADVANCE DIRECTIVE DISCUSSION ADVANCE DIRECTIVE DISCUSSION [facility] Start: 09-11-2022 DEPRESSION ASSESSMENT DEPRESSION ASS ESSMENT [facility] Start: 05-12-2022 Influenza vaccination INFLUENZA (#1) [facility] Start: 03-24-2022 End: 05-24-2022 Thyrotropin [Units/volume] in Serum or Plasma TSH BLD Lab Routine Subclinical hypothyroidism Expected: 03/24/2022, Expires: 05/24/2022 [facility] Work Phone: Comment on above: Expected: 03/24/2022 , Expires: 05/24/2022 Start: 02-04-2022 COVID-19 VACCINE (5 - Booster for Moderna series) COVID-19 VACCINE (5 - Booster for Moderna series) [facility] Start: 09-11-2021 ADVANCE DIRECTIVE DISCUSSION ADVANCE DIRECTIVE DISCUSSION [facility] Start: 09-11-2021 DEPRESSION ASSESSMENT DEPRESSION ASS ESSMENT [facility] Start: 01-09-2018 SHINGRIX VACCINE (2 of 2) SHINGRIX VACCINE (2 of 2) [facility] Start: 04-11-2017 Colonoscopy COLONOSCOPY [facility] Start: 04-11-2017 COLORECTAL CANCER SCREENING COLORECTAL CANCER SCREENING [facility] Start: 2008 Influenza vaccination LUNG CANCER [facility] Start: 2003 Influenza vaccination LUNG CANCER [facility] Start: 1998 COLOGUARD (FIT-DNA) COLOGUARD (FIT-D NA) [facility] Start: [address] COLONOGRAPHY [facility] Start: 1998 FECAL OCCULT BLOOD FECAL OCCULT BLOO D [facility] Start: 1998 Screening for malign ant neoplasm of colon [facility] Start: 1998 SIGMO[facility]OSCOPY [facility] Start: 1971 BP CONTROLLED (<130/80) BP CONTROLLE D (<130/80) [facility] Start: 1971 Depression Screening Depression Scre ening [facility] Start: 1955 ABDOMINAL AORTIC ANEURYSM SCREENING ABDOMINAL AORTIC ANEURYSM SCREENING [facility] Start: 1955 Abdominal aortic aneurysm screening Abdominal Aortic Aneurysm Screening [facility] Immunizations Immunization Date Immunization Notes Care Provider [facility] 07-10-2024 Seasonal trivalent influenza vaccine, adjuvanted, preservative free Jacob Adam MD Work Phone: [facility] 05-31-2023 respiratory syncytia l virus (RSV) vaccine, adjuvanted (AREXVY) [facility] DO Work Phone: [facility] 05-10-2023 influenza (aIIV4) vaccine, age 65+ yr, quadrivalent, PF (FLUAD QUAD) [facility] DO Work Phone: [facility] 05-10-2023 influenza virus vacc ine, unspecified formulation Jacob Adam MD Work Phone: [facility] 06-04-2022 influenza, high-dose , quadrivalent vaccine (FLUZONE HIGH DOSE QUADRIVALENT) Joshua Eller MD Work Phone: [facility] 12-28-2021 pneumococcal (PCV20) vaccine, 20 valent (PREVNAR 20) Joshua Eller MD Work Phone: [facility] 07-02-2021 COVID-19 vaccine, fu ll dose (MODERNA) Carlie Braun APRN.COMMERCIAL RETOUCHER Work Phone: [facility] 07-02-2021 influenza, high-dose , quadrivalent vaccine (FLUZONE HIGH DOSE QUADRIVALENT) Carlie Braun APRN.COMMERCIAL RETOUCHER Work Phone: [facility] 10-19-2020 COVID-19 vaccine, fu ll dose (MODERNA) Carlie Braun APRN.COMMERCIAL RETOUCHER Work Phone: [facility] 09-21-2020 COVID-19 vaccine, fu ll dose (MODERNA) Carlie Kubicki SHIATSU THERAPIST.COMMERCIAL RETOUCHER Work Phone: [facility] 04-02-2020 tetanus toxoid, redu eula diphtheria toxoid, and acellular pertussis vaccine, adsorbed Carlie Kubicki SHIATSU THERAPIST.COMMERCIAL RETOUCHER Work Phone: [facility] 09-14-2019 pneumococcal polysaccharide vaccine, 23 valent Carlie Kubicki SHIATSU THERAPIST.COMMERCIAL RETOUCHER Work Phone: [facility] 07-19-2019 influenza, high dose seasonal, preservative-free Carlie Kubicki SHIATSU THERAPIST.COMMERCIAL RETOUCHER Work Phone: [facility] 07-19-2019 influenza, injectabl e, quadrivalent, contains preservative Carlie Kubicki SHIATSU THERAPIST.COMMERCIAL RETOUCHER Work Phone: [facility] 05-22-2018 influenza, injectabl e, quadrivalent, preservative free Carlie Kubicki SHIATSU THERAPIST.COMMERCIAL RETOUCHER Work Phone: [facility] 11-14-2017 zoster vaccine recombinant Carlie Kubicki SHIATSU THERAPIST.COMMERCIAL RETOUCHER Work Phone: [facility] 05-14-2017 Influenza, injectabl e, Madin Nicole Canine Kidney, preservative free, quadrivalent Carlie Kubicki SHIATSU THERAPIST.COMMERCIAL RETOUCHER Work Phone: [facility] 03-27-2017 pneumococcal conjuga te vaccine, 13 valent Carlie Kubicki SHIATSU THERAPIST.COMMERCIAL RETOUCHER Work Phone: [facility] 05-24-2016 Influenza, injectabl e, Madin Niocle Canine Kidney, preservative free, quadrivalent Carlie Kubicki SHIATSU THERAPIST.COMMERCIAL RETOUCHER Work Phone: [facility] 05-24-2016 influenza, injectabl e, quadrivalent, preservative free Carlie Kubicki SHIATSU THERAPIST.COMMERCIAL RETOUCHER Work Phone: [facility] 05-29-2015 influenza nasal, unspecified formulation Carlie Kubicki SHIATSU THERAPIST.COMMERCIAL RETOUCHER Work Phone: [facility] 05-29-2015 influenza virus vacc ine, unspecified formulation Carlie Kubicki SHIATSU THERAPIST.COMMERCIAL RETOUCHER Work Phone: [facility] 05-19-2015 influenza, injectabl e, quadrivalent, preservative free Carlie Kubicki SHIATSU THERAPIST.COMMERCIAL RETOUCHER Work Phone: [facility] 05-23-2013 influenza, high dose seasonal, preservative-free Carlie Kubicki SHIATSU THERAPIST.COMMERCIAL RETOUCHER Work Phone: [facility] Payers Date Payer Category Payer Self-pay [id number] 2022 [place] [id number] 2022 Medicare [id number] 2018 Medicare MEDICARE MEDICAR E A AND B [id number] 2018-Present [phone] [place] [address] Medicare [id number] 2018 Medicare [id number] 2018 Private Health Insurance [facility] AARP SUPPLEMENT [id number] 2018-Present [phone] [address] [place] [address] Indemnity [id number] 2018 Private [facility] Insurance [facility] AARP SUPPLEMENT [id number] 2018-Present [phone] [address] [place] [address] Indemnity [id number] 2016 [facility] Insurance [facility] [id number] Medicare [id number] Unknown [id number] Unknown [id number] Social History Date Type Detail Facility Start: 12-21-2011 End: 06-05-2023 Tobacco smoking status NHIS Ex-smoker [facility] Work Phone: Start: 09-11-1972 End: 09-11-2007 History of tobacco use Current smoker [facility] Work Phone: Start: 09-11-1972 End: 09-11-2007 History of tobacco use Cigarette Smoker [facility] Work Phone: Start: 12-21-2011 End: 01-16-2023 Cigarettes smoked current (pack per day) - Reported 1.5 [facility] Start: 12-21-2011 End: 06-05-2023 Tobacco use and exposure Former smokeless tobacco user [facility] Work Phone: End: 02-10-2008 History of tobacco use User of smokeless tobacco [facility] Work Phone: Start: 12-03-2021 End: 09-19-2024 Alcohol intake Ex-drinker (finding) [facility] Start: 11-29-2018 History SDOH Alcohol Comment none [facility] Start: 1955 Sex Assigned At Not on file [facility] Start: 11-26-2021 End: 07-28-2022 Exposure to SARS-CoV-2 (event) Not sure [facility] Start: 1955 Sex Assigned At Male [facility] Start: 01-16-2023 End: 06-05-2023 Tobacco use panel [facility] Adult Depression Screening Assessment 0 [facility] Clinical Notes 08-31-2021 to 02-04-2025 Telephone Encounter - Shala Phan LPN - 02/04/2025 10:31 AM EDTTelephone Encounter - Shala Phan LPN - 02/04/2025 10:31 AM EDTTelephone Encounter - Vahe Romero MA - 01/27/2025 9:39 AM EDT Note Date & Type Note Facility 02-04-2025 Telephone encounter Note Pharmacy faxed requesting the following refill Refill(s) Requested: Requested Prescriptions Pending Prescriptions Disp Refills losartan (COZAAR) 100 mg tablet [Pharmacy Med Name: LOSARTAN POTASSIUM 100 MG TAB] 30 tablet 0 Sig: TAKE 1 TABLET BY MOUTH EVERY DAY ALLERGIES Allergen Reactions Ciprofloxacin Hcl GI Upset Doxycycline Unknown Seasonal Allergies Other: See Comments [facility] (home) [phone] (cell) Last Office Visit Date: 02/09/2024 Last Distance Health Visit: Visit date not found Future Appointment: 02/10/2025 The patients preferred pharmacy has been captured for this encounter? yes Request is for script(s) to be escript to pharmacy. Shala Phan LPN [facility] 02-04-2025 Miscellaneous Notes Pharmacy faxed requesting the following refill Refill(s) Requested: Requested Prescriptions Pending Prescriptions Disp Refills losartan (COZAAR) 100 mg tablet [Pharmacy Med Name: LOSARTAN POTASSIUM 100 MG TAB] 30 tablet 0 Sig: TAKE 1 TABLET BY MOUTH EVERY DAY ALLERGIES Allergen Reactions Ciprofloxacin Hcl GI Upset Doxycycline Unknown Seasonal Allergies Other: See Comments [facility] (home) [phone] (cell) Last Office Visit Date: 02/09/2024 Last Distance Health Visit: Visit date not found Future Appointment: 02/10/2025 The patients preferred pharmacy has been captured for this encounter? yes Request is for script(s) to be escript to pharmacy. Shala Phan LPN documented in this encounter [facility] 01-27-2025 Telephone encounter Note Pharmacy called requesting the following refill Refill(s) Requested: Requested Prescriptions Pending Prescriptions Disp Refills ipratropium bromide (ATROVENT) 42 mcg (0.06 %) nasal spray [Pharmacy Med Name: IPRATROPIUM 0.06% SPRAY] 3 Sig: USE 2 SPRAYS IN THE NOSE THREE TIMES A DAY. ALLERGIES Allergen Reactions Ciprofloxacin Hcl GI Upset Doxycycline Unknown Seasonal Allergies Other: See Comments [facility] (home) [phone] (cell) Last Office Visit Date: 09/19/2024 Last Distance Health Visit: Visit date not found Future Appointment: 09/05/2025 The patients preferred pharmacy has been captured for this encounter? yes Request is for script(s) to be escript to pharmacy. Vahe Romero MA [facility] 01-27-2025 Miscellaneous Notes Pharmacy called requesting the following refill Refill(s) Requested: Requested Prescriptions Pending Prescriptions Disp Refills ipratropium bromide (ATROVENT) 42 mcg (0.06 %) nasal spray [Pharmacy Med Name: IPRATROPIUM 0.06% SPRAY] 3 Sig: USE 2 SPRAYS IN THE NOSE THREE TIMES A DAY. ALLERGIES Allergen Reactions Ciprofloxacin Hcl GI Upset Doxycycline Unknown Seasonal Allergies Other: See Comments [facility] (home) [phone] (cell) Last Office Visit Date: 09/19/2024 Last [facility] Visit: Visit date not found Future Appointment: 09/05/2025 The patients preferred pharmacy has been captured for this encounter? yes Request is for script(s) to be escript to pharmacy. Vahe Romero MA documented in this encounter [facility] 09-19-2024 Note HNO ID: [id number] Author: JACOB ADAM MD Service: ? Author Type: Physician Type: Progress Notes Filed: 09/19/2024 21:00 Note Text: Allergy AND Immunology Established Visit PATIENT NAME: Madi Bolanos SERVICE DATE: 09/19/2024 HPI: The patient is a 68-year-old male presenting with a persistent chronic cough and management of allergic rhinitis. The patient reports a long-standing issue with what he describes as a chronic cold condition, which includes persistent coughing. He recalls receiving allergy shots and experiencing exacerbated symptoms such as cough in cold weather conditions. His cough has been persistent since he restarted smoking briefly after quitting for two years and has become a chronic issue, waxing and waning with allergy exposure or infections. The chronic cough becomes noticeable with dry weather changes and occurs more frequently during the spring allergy season. The cough episodes have historically worsened with exposure to environmental irritants like pollen. Previous management included Spiriva, with borderline results showing low and normal spirometric tests. He has experimented with an [id number] supplement, NAC (N-acetylcysteine), reporting symptomatic improvement and less thick mucous production, although no formal studies support this effect. Previously, his asthma had been managed with Advair and ProAir. Currently, he notes he was given a generic equivalent of Advair. Despite needing to maintain appointments, he has experienced difficulty securing timely follow-ups within his practice due to its growth and popularity. 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 He is vigilant about his vaccinations and received the recent flu and COVID-19 vaccines. PAST MEDICAL HISTORY Diagnosis Date Abnormal EKG Acute maxillary sinusitis Acute prostatitis Allergic rhinitis Asthma Body mass index 29.0-29.9, adult Chronic laryngitis Chronic obstructive lung disease (HCC) Elevated PSA Essential (primary) hypertension Fatigue Generalized anxiety disorder GERD (gastroesophageal reflux disease) Hyperlipemia Lateral epicondylitis Other insomnia Pulmonary emphysema (HCC) Raised TSH level Thrombocytopenic disorder (HCC) Tobacco dependence syndrome Vitamin D deficiency ACTIVE PROBLEM LIST Muscle Tension Dysphonia Lprd (Laryngopharyngeal Reflux Disease) Seasonal Allergic Rhinitis Due to Pollen Chronic Cough Mild Persistent Asthma Without Complication Urgency of Urination Frequency of Urination Dysuria Essential (Primary) Hypertension Hyperlipemia Generalized Anxiety Disorder Chronic Insomnia Vasomotor Rhinitis Allergic Rhinitis Due to Dust Mite Allergic Rhinitis Due to Mold PAST SURGICAL HISTORY Procedure Laterality Date CATARACT EXTRACTION HX COLONOSCOPY 04/01/2011 COLONOSCOPY 04/11/2016 PAST SURGICAL HISTORY OF left ear stapedotomy Social History Tobacco Use Smoking status: Former Current packs/day: 0.00 Average packs/day: 1.5 packs/day for 35.0 years (52.5 ttl pk-yrs) Types: Cigarettes Start date: 1972 Quit date: 2007 Years since quittin.0 Smokeless tobacco: Former Quit date: 02/10/2008 Vaping Use Vaping status: Never Used Substance Use Topics Alcohol use: Not Currently Comment: none Drug use: No CURRENT OUTPATIENT MEDICATIONS: Current Outpatient Medications Medication Sig Dispense Refill losartan (COZAAR) 100 mg tablet Take 1 tablet by mouth once daily. 90 tablet 3 mirtazapine (REMERON) 30 mg tablet Take 1 tablet by mouth daily at bedtime. 90 tablet 3 venlafaxine ER (EFFEXOR XR) 37.5 mg 24 hr capsule Take 1 capsule by mouth once daily. 90 capsule 3 fluticasone-salmeterol (ADVAIR DISKUS) 100-50 mcg/dose inhaler Inhale 1 Puff as instructed two times a day. RINSE AND GARGLE MOUTH WITH WATER AFTER EACH USE. 180 Each 3 montelukast (SINGULAIR) 10 mg tablet Take 1 tablet by mouth daily at bedtime. 90 tablet 3 ipratropium bromide (ATROVENT) 42 mcg (0.06 %) nasal spray Use 2 Sprays in the nose three times a day. 15 mL 3 albuterol HFA (PROVENTIL HFA, VENTOLIN HFA) 90 mcg/actuation inhaler Inhale 2 Puffs as instructed every 4 hours as needed. 3 Each 3 No current facility-administered medications for this visit. ALLERGIES: ALLERGIES Allergen Reactions Ciprofloxacin Hcl GI Upset Doxycycline Unknown Seasonal Allergies Other: See Comments Hayfever REVIEW OF SYSTEMS: - Respiratory: Reports improved respiratory function since taking NAC supplement, reduced cough frequency, and improvement in mucus production - General: Denies fatigue or weight loss - Immunologic: Reports exacerbations during pollen season CONSTITUTIONAL: No acute distress. No weight loss or gain, no fevers or chills CARDIOVASC (more content not included)... [facility] 09-19-2024 History of Presen t illness Narrative Images from the original note were not included. Allergy & Immunology Established Visit PATIENT NAME: Madi Bolanos SERVICE DATE: 09/19/2024 HPI: The patient is a 68-year-old male presenting with a persistent chronic cough and management of allergic rhinitis. The patient reports a long-standing issue with what he describes as a chronic cold condition, which includes persistent coughing. He recalls receiving allergy shots and experiencing exacerbated symptoms such as cough in cold weather conditions. His cough has been persistent since he restarted smoking briefly after quitting for two years and has become a chronic issue, waxing and waning with allergy exposure or infections. The chronic cough becomes noticeable with dry weather changes and occurs more frequently during the spring allergy season. The cough episodes have historically worsened with exposure to environmental irritants like pollen. Previous management included Spiriva, with borderline results showing low and normal spirometric tests. He has experimented with an [id number] supplement, NAC (N-acetylcysteine), reporting symptomatic improvement and less thick mucous production, although no formal studies support this effect. Previously, his asthma had been managed with Advair and ProAir. Currently, he notes he was given a generic equivalent of Advair. Despite needing to maintain appointments, he has experienced difficulty securing timely follow-ups within his practice due to its growth and popularity. 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 He is vigilant about his vaccinations and received the recent flu and COVID-19 vaccines. PAST MEDICAL HISTORY Diagnosis Date Abnormal EKG Acute maxillary sinusitis Acute prostatitis Allergic rhinitis Asthma Body mass index 29.0-29.9, adult Chronic laryngitis Chronic obstructive lung disease (HCC) Elevated PSA Essential (primary) hypertension Fatigue Generalized anxiety disorder GERD (gastroesophageal reflux disease) Hyperlipemia Lateral epicondylitis Other insomnia Pulmonary emphysema (HCC) Raised TSH level Thrombocytopenic disorder (HCC) Tobacco dependence syndrome Vitamin D deficiency ACTIVE PROBLEM LIST Muscle Tension Dysphonia Lprd (Laryngopharyngeal Reflux Disease) Seasonal Allergic Rhinitis Due to Pollen Chronic Cough Mild Persistent Asthma Without Complication Urgency of Urination Frequency of Urination Dysuria Essential (Primary) Hypertension Hyperlipemia Generalized Anxiety Disorder Chronic Insomnia Vasomotor Rhinitis Allergic Rhinitis Due to Dust Mite Allergic Rhinitis Due to Mold PAST SURGICAL HISTORY Procedure Laterality Date CATARACT EXTRACTION HX COLONOSCOPY 04/01/2011 COLONOSCOPY 04/11/2016 PAST SURGICAL HISTORY OF left ear stapedotomy Social History Tobacco Use Smoking status: Former Current packs/day: 0.00 Average packs/day: 1.5 packs/day for 35.0 years (52.5 ttl pk-yrs) Types: Cigarettes Start date: 1972 Quit date: 2007 Years since quittin.0 Smokeless tobacco: Former Quit date: 02/10/2008 Vaping Use Vaping status: Never Used Substance Use Topics Alcohol use: Not Currently Comment: none Drug use: No CURRENT OUTPATIENT MEDICATIONS: Current Outpatient Medications Medication Sig Dispense Refill losartan (COZAAR) 100 mg tablet Take 1 tablet by mouth once daily. 90 tablet 3 mirtazapine (REMERON) 30 mg tablet Take 1 tablet by mouth daily at bedtime. 90 tablet 3 venlafaxine ER (EFFEXOR XR) 37.5 mg 24 hr capsule Take 1 capsule by mouth once daily. 90 capsule 3 fluticasone-salmeterol (ADVAIR DISKUS) 100-50 mcg/dose inhaler Inhale 1 Puff as instructed two times a day. RINSE AND GARGLE MOUTH WITH WATER AFTER EACH USE. 180 Each 3 montelukast (SINGULAIR) 10 mg tablet Take 1 tablet by mouth daily at bedtime. 90 tablet 3 ipratropium bromide (ATROVENT) 42 mcg (0.06 %) nasal spray Use 2 Sprays in the nose three times a day. 15 mL 3 albuterol HFA (PROVENTIL HFA, VENTOLIN HFA) 90 mcg/actuation inhaler Inhale 2 Puffs as instructed every 4 hours as needed. 3 Each 3 No current facility-administered medications for this visit. ALLERGIES: ALLERGIES Allergen Reactions Ciprofloxacin Hcl GI Upset Doxycycline Unknown Seasonal Allergies Other: See Comments Hayfever REVIEW OF SYSTEMS: - Respiratory: Reports improved respiratory function since taking NAC supplement, reduced cough frequency, and improvement in mucus production - General: Denies fatigue or weight loss - Immunologic: Reports exacerbations during pollen season CONSTITUTIONAL: No acute distress. No weight loss or gain, no fevers or chills CARDIOVASCULAR: negative for chest pain, leg swelling or palpitations. GASTROINTESTINAL: Negative for abdominal discomfort, No blood in stools or black stools MUSCULOSKELETAL: negative for joint pain or swelling, back pain or muscle pain. NEUROLOGIC:Negative for focal numbness or weakness, headaches and dizziness or syncope. DERM/SKIN: no new rashes, hives, or skin eruptions. PSYCHIATRIC: Negative for sleep disturbance, mood disorder and recent psychosocial stressors HEMATOLOGIC/LYMPHATIC/IMMUNOLOG IC:Negative for cold or heat intolerance, polyuria, polydipsia and goiter. PHYSICAL EXAM: BP 110/71 Pulse 83 Temp (Src) 98.7 (Temporal) Resp 18 Ht 5' 11 (1.80m) Wt 210 lb (95.3kg) SpO2 95% BMI 29.30 kg/(m^2). - Respiratory- Clear breath sounds General appearance: Well appearing, alert, in no acute distress, well-hydrated, well nourished. HENT: External ears normal, canals clear, TM's normal Eyes: no scleral icterus, PERRLA, EOMS, no conjunctivitis Nose/Sinuses: Nares normal. Septum midline. Mucosa normal. No drainage or sinus tenderness. Oropharynx: Lips, mucosa, and tongue normal, teeth and gums normal, oropharynx normal Respiratory: Lungs clear to auscultation. No wheezing, rhonchi, rales Cardiovascular: RRR without murmur, gallop, or rubs. No ectopy Gastroenterology: normal appearing abdomen on inspection Musculoskeletal: No joint pain, muscle weakness, or impaired gait Integumentary: Negative for lesions, rash, and itching. Psychiatric: Alert and oriented x 3. No mood disorders noted, calm affect. DATA: Diagnostic tests reviewed for today's visit were personally reviewed by me: Most recent labs and imaging results. SPIROMETRY BASELINE ONLY ([id number]) - ordered on 04/26/21 No textual results for order. 12/13/2022 08/09/2023 09/12/2024 ASTHMA CONTROL TEST (2007 - ) Keep from getting things done 5 None of the time 5 None of the time 5 None of the time Shortness of breath 5 Not at all 5 Not at all 5 Not at all Symptoms wake up at night or early in morning 5 Not at all 5 Not at all 5 Not at all How often have you used inhaler/nebulizer 4 Once a week or less 4 Once a week or less 2 1 or 2 times per day Rate your asthma control over past 4 weeks 5 Completely controlled 5 Completely controlled 5 Completely controlled Asthma Control Test Score 24 24 22 No question data found. Glucose (no units) Date Value 12/21/2021 94 Potassium (no units) Date Value 12/21/2021 4.0 Sodium (no units) Date Value 12/21/2021 138 Chloride (no units) Date Value 12/21/2021 106 CO2 (no units) Date Value 12/21/2021 26 Creatinine (mg/dL) Date Value 12/21/2011 0.92 BUN (no units) Date Value 12/21/2021 17 Anion Gap (no units) Date Value 12/21/2021 6 Calcium (no units) Date Value 12/21/2021 7.9 Protein, Total (no units) Date Value 12/21/2021 7.7 Albumin (no units) Date Value 12/21/2021 3.8 Bilirubin, Total (no units) Date Value 12/21/2021 0.5 Alkaline Phosphatase (no units) Date Value 12/21/2021 143 AST (no units) Date Value 12/21/2021 47 ALT (no units) Date Value 12/21/2021 80 WBC Date Value Ref Range Status 12/21/2011 6.79 3.70 - 11.00 k/uL Final Comment: Result checked and verified RBC Date Value Ref Range Status 12/21/2011 4.69 4.20 - 6.00 m/uL Final Hemoglobin Date Value Ref Range Status 12/21/2011 14.9 13.0 - 17.0 g/dL Final Hematocrit Date Value Ref Range Status 12/21/2011 43.8 39.0 - 51.0 % Final MCV Date Value Ref Range Status 12/21/2011 93.4 80.0 - 100.0 fL Final MCH Date Value Ref Range Status 12/21/2011 31.8 26.0 - 34.0 pG Final MCHC Date Value Ref Range Status 12/21/2011 34.0 30.5 - 36.0 g/dL Final RDW-CV Date Value Ref Range Status 12/21/2011 13.0 11.5 - 15.0 % Final Platelet Count Date Value Ref Range Status 12/21/2011 128 (L) 150 - 400 k/uL Final Comment: Result rechecked. MPV Date Value Ref Range Status 12/21/2011 13.9 (H) 9.0 - 12.7 fL Final Abs Neut (ANC) Date Value Ref Range Status 03/24/2001 6.29 1.8 - 7.7 K/uL Final Lymph% Date Value Ref Range Status 03/24/2001 26.1 22 - 44 % Final Abs Lymph Date Value Ref Range Status 03/24/2001 2.51 1.0 - 4.0 k/uL Final [place]% Date Value Ref Range Status 03/24/2001 7.2 (A) 0 - 7.0 % Final Abs [place] Date Value Ref Range Status 03/24/2001 0.69 0 - 0.8 K/uL Final Abs Eosin Date Value Ref Range Status 03/24/2001 0.08 0 - 0.4 K/uL Final Baso% Date Value Ref Range Status 03/24/2001 0.3 0 - 1 % Final Abs Baso Date Value Ref Range Status 03/24/2001 0.03 0 - 0.2 K/uL Final No results found for: IGE, IGG Return in about 1 year (around 09/19/2025). ASSESSMENT/PLAN: PLAN: 1. Seasonal allergic rhinitis due to pollen (J30.1): Continue with current allergy management. Patient reports improvement with NAC supplement, though it lacks substantial evidence for cough relief; however, it poses no harm. Continue monitoring exposure to allergens and maintain updated vaccinations. 2. Mild persistent asthma without complication (J45.30): Advise continuation of current asthma management with prescribed medications. The patient should monitor symptoms and use ProAir as a rescue inhaler when necessary. 3. Vasomotor rhinitis (J30.0): Continue management tailored towards controlling symptoms. Encourage environmental control measures and continue strategies to monitor environmental triggers. 4. Chronic cough (R05.3): Comorbid assess related to environmental influences and previous cigarette use. Continue with current management strategy alongside allergy treatment. Monitor the effectiveness of NAC supplement and adjust respiratory medications as needed depending on COPD indices. 5. 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 Consider referral to speech therapy if dysphonia persists and impacts the quality of life. 6. Allergic rhinitis due to dust mite (J30.89) 7. 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 - Maintain your allergy management plan, avoiding known triggers like pollen when possible. - You may continue using the NAC supplement if you feel it helps with your mucus and cough, though results are subjective. - Keep up with your vaccinations, including flu and COVID-19. - Stay active with activities like golf while being mindful of your physical limits due to caregiving duties at home. I spent a total of 34 minutes on the date of the service which included preparing to see the patient, [id number] patient care, completing clinical documentation, performing a medically appropriate examination, counseling and educating the patient/family/caregiver, and ordering medications, tests, or procedures. Jacob Adam MD documented in this encounter [facility] 02-09-2024 History of Presen t illness Narrative Images from the original note were not included. [facility] Tanvir DO [address] [place] [address] Date of Evaluation: 02/09/2024 Patient Name: Madi Bolanos : 1955 Chief Complaint: Patient presents with: 6 Month Exam: Medication refills Hypertension Nursing Intake: There are no exam notes on file for this visit. Subjective Mr. Bolanos is a 68 year old male who presents with the following complaint(s): The history is provided by the patient. No specialized language instructor was used. Hypertension This is a chronic problem. The current episode started more than 1 year ago. Pertinent negatives include no chest pain, headaches, palpitations or shortness of breath. Anxiety Pertinent negatives include no weakness. This is a chronic problem. Hypercholesterolemia This is a chronic problem. The current episode started more than 1 year ago. Pertinent negatives include no chest pain or shortness of breath. Review of Systems Constitutional: Negative for fatigue and unexpected weight change. HENT: Negative for nosebleeds. Eyes: Negative for redness and visual disturbance. Respiratory: Negative for apnea, cough and shortness of breath. Cardiovascular: Negative for chest pain, palpitations and leg swelling. Genitourinary: Negative for hematuria. Neurological: Negative for dizziness, weakness, light-headedness, numbness and headaches. Hematological: Does not bruise/bleed easily. Psychiatric/Behavioral: Positive for sleep disturbance. The patient is nervous/anxious. PAST MEDICAL HISTORY Diagnosis Date Abnormal EKG Acute maxillary sinusitis Acute prostatitis Allergic rhinitis Asthma Body mass index 29.0-29.9, adult Chronic laryngitis Chronic obstructive lung disease (HCC) Elevated PSA Essential (primary) hypertension Fatigue Generalized anxiety disorder GERD (gastroesophageal reflux disease) Hyperlipemia Lateral epicondylitis Other insomnia Pulmonary emphysema (HCC) Raised TSH level Thrombocytopenic disorder (HCC) Tobacco dependence syndrome Vitamin D deficiency PAST SURGICAL HISTORY Procedure Laterality Date CATARACT EXTRACTION HX COLONOSCOPY 04/01/2011 COLONOSCOPY 04/11/2016 PAST SURGICAL HISTORY OF left ear stapedotomy FAMILY HISTORY Problem Relation Age of Onset Emphysema Father other (lung cancer) Father 71 Cancer Mother 79 Hypertension Mother Lipids Brother Lipids Sister Social History Tobacco Use Smoking status: Former Packs/day: 1.50 Years: 35.00 Additional pack years: 0.00 Total pack years: 52.50 Types: Cigarettes Quit date: 2007 Years since quittin.4 Smokeless tobacco: Former Quit date: 02/10/2008 Vaping Use Vaping Use: Never used Substance Use Topics Alcohol use: Not Currently Comment: none Drug use: No Current Outpatient Medications Medication Sig fluticasone-salmeterol (ADVAIR DISKUS) 100-50 mcg/dose inhaler Inhale 1 Puff as instructed two times a day. RINSE AND GARGLE MOUTH WITH WATER AFTER EACH USE. ipratropium bromide (ATROVENT) 42 mcg (0.06 %) nasal spray USE 2 SPRAYS IN THE NOSE THREE TIMES DAILY. albuterol HFA (PROVENTIL HFA, VENTOLIN HFA) 90 mcg/actuation inhaler Inhale 2 Puffs as instructed every 4 hours as needed. losartan (COZAAR) 100 mg tablet Take 1 tablet by mouth once daily. mirtazapine (REMERON) 30 mg tablet Take 1 tablet by mouth daily at bedtime. montelukast (SINGULAIR) 10 mg tablet Take 1 tablet by mouth daily at bedtime. venlafaxine ER (EFFEXOR XR) 37.5 mg 24 hr capsule Take 1 capsule by mouth once daily. OZEMPIC 1 mg/dose (4 mg/3 mL) pen Inject 1 mg subcutaneously one time a week. OZEMPIC 0.25 mg or 0.5 mg (2 mg/3 mL) pen INJECT 0.5 MG SUBCUTANEOUSLY ONE TIME A WEEK. IN ADDITION TO 1 MG TO EQUAL 1.5 (Patient not taking: Reported on 02/09/2024) montelukast (SINGULAIR) 10 mg tablet Take 1 tablet by mouth daily at bedtime. (Patient not taking: Reported on 02/09/2024) EPINEPHrine (EPIPEN) 0.3 mg/0.3 mL auto-injector Inject 0.3 mL intramuscularly as directed. Okay to use generic semaglutide (OZEMPIC) 0.25 mg or 0.5 mg(2 mg/1.5 mL) pen Inject 0.25 mg subcutaneously one time a week. (Patient not taking: Reported on 02/09/2024) No current facility-administered medications for this visit. I have confirmed and edited as necessary the past medical, family and social histories, HPI, and ROS obtained by others. Objective BP 120/84 Pulse 70 Temp 97.7 Ht 5' 11 (1.80m) Wt 213 lb (96.6kg) SpO2 96% BMI 29.72 kg/(m^2). Physical Exam Vitals and nursing note reviewed. Constitutional: General: He is not in acute distress. Appearance: Normal appearance. He is well-developed. He is not ill-appearing. HENT: Head: Normocephalic. Right Ear: Tympanic membrane, ear canal and external ear normal. There is no impacted cerumen. Left Ear: Tympanic membrane, ear canal and external ear normal. There is no impacted cerumen. Nose: Nose normal. Mouth/Throat: Mouth: Mucous membranes are moist. Pharynx: Oropharynx is clear. Uvula midline. No oropharyngeal exudate or posterior oropharyngeal erythema. Eyes: General: Lids are normal. Vision grossly intact. Gaze aligned appropriately. No scleral icterus. Right eye: No discharge. Left eye: No discharge. Extraocular Movements: Extraocular movements intact. Conjunctiva/sclera: Conjunctivae normal. Pupils: Pupils are equal, round, and reactive to light. Neck: Thyroid: No thyroid mass, thyromegaly or thyroid tenderness. Vascular: No carotid bruit. Trachea: Trachea and phonation normal. Cardiovascular: Rate and Rhythm: Normal rate and regular rhythm. Pulses: Normal pulses. Heart sounds: Normal heart sounds. Pulmonary: Effort: Pulmonary effort is normal. Breath sounds: Normal breath sounds. Abdominal: General: Abdomen is flat. Bowel sounds are normal. Palpations: Abdomen is soft. Musculoskeletal: General: Normal range of motion. Right shoulder: Normal. Left shoulder: Normal. Cervical back: Normal, full passive range of motion without pain and neck supple. No tenderness. No spinous process tenderness. Thoracic back: Normal. Lumbar back: Normal. Right knee: Normal. Left knee: Normal. Right lower leg: No edema. Left lower leg: No edema. Lymphadenopathy: Cervical: No cervical adenopathy. Skin: General: Skin is warm and dry. Neurological: General: No focal deficit present. Mental Status: He is alert and oriented to person, place, and time. Mental status is at baseline. Sensory: Sensation is intact. Motor: Motor function is intact. Psychiatric: Attention and Perception: Attention and perception normal. Mood and Affect: Mood normal. Speech: Speech normal. Behavior: Behavior normal. Thought Content: Thought content normal. Judgment: Judgment normal. Data Reviewed: Most recent labs ASSESSMENT/PLAN: 1. Essential (primary) hypertension - ICD9: 401.9, ICD10: I10 (primary diagnosis) - Controlled - Continue current medications - Recommend home blood pressure monitoring, to bring results to next visit - Encouraged sodium restriction, DASH or Mediterranean diet - Recommend regular aerobic exercise - LOSARTAN 100 MG TABLET - VITAMIN D 25 HYDROXY 2. Chronic insomnia - ICD9: 780.52, ICD10: F51.04 - MIRTAZAPINE 30 MG TABLET 3. Generalized anxiety disorder - ICD9: 300.02, ICD10: F41.1 - VENLAFAXINE ER 37.5 MG CAPSULE,EXTENDED RELEASE 24 HR 4. Overweight with body mass index (BMI) of 29 to 29.9 in adult - ICD9: 278.02, V85.25, ICD10: E66.3, Z68.29 - Continue Ozempic - OZEMPIC 1 MG/DOSE (4 MG/3 ML) SUBCUTANEOUS PEN INJECTOR 5. Mixed hyperlipidemia - ICD9: 272.2, ICD10: E78.2 - Control undetermined, due for labs - COMPLETE BLOOD COUNT AND DIFFERENTIAL - COMPREHENSIVE METABOLIC PANEL - LIPID PANEL BASIC - URINALYSIS, WITH MICROSCOPIC 6. Screening for thyroid disorder - ICD9: V77.0, ICD10: Z13.29 - THYROID STIMULATING HORMONE 7. Screening for prostate cancer - ICD9: V76.44, ICD10: Z12.5 - PSA/PROSTATE SPECIFIC ANTIGEN SCREENING Tanvir Hunter DO Return in about 6 months (around 08/10/2024). Attestation: Scribe Attestation: The patient is seen and examined by Dr. Hunter and the following reflects his/her service. Scribed by Heide Nuñez February 09, 2024 10:02 Aby Attestation: I, Tanvir Hunter DO personally performed the services described in this documentation. All medical record entries made by the scribe were at my direction and in my presence. I have reviewed the chart and discharge instructions (if applicable) and agree that the record reflects my personal performance and is accurate and complete. Electronically Signed: Tanvir Hunter DO, February 09, 2024 10:18 AM documented in this encounter [facility] 12-11-2023 Miscellaneous Notes Pharmacy faxed requesting the following refill.Patient is request a 90 day supply be sent to a different pharmacy. Requested Prescriptions Pending Prescriptions Disp Refills fluticasone-salmeterol (ADVAIR DISKUS) 100-50 mcg/dose inhaler 180 Each 3 Sig: Inhale 1 Puff as instructed two times a day. RINSE AND GARGLE MOUTH WITH WATER AFTER EACH USE. Patient Phone numbers: [phone] (home) Request is for script(s) to be escript to pharmacy. Amalia Hargrove documented in this encounter [facility] 11-14-2023 Miscellaneous Notes Pharmacy faxed requesting the following refill Refill(s) Requested: Requested Prescriptions Pending Prescriptions Disp Refills mirtazapine (REMERON) 30 mg tablet [Pharmacy Med Name: MIRTAZAPINE 30 MG TABLET] 90 tablet 3 Sig: take 1 tablet by mouth everyday at bedtime ALLERGIES Allergen Reactions Ciprofloxacin Hcl GI Upset Doxycycline Unknown Seasonal Allergies Other: See Comments [employer] (home) [phone] (cell) Last Office Visit Date: 06/05/2023 Last [facility] Health Visit: Visit date not found Future Appointment: 12/07/2023 The patients preferred pharmacy has been captured for this encounter? yes Request is for script(s) to be escript to pharmacy. Shala Phan LPN documented in this encounter [facility] 11-10-2023 Miscellaneous Notes Pharmacy faxed requesting the following refill Refill(s) Requested: Requested Prescriptions Pending Prescriptions Disp Refills venlafaxine ER (EFFEXOR XR) 37.5 mg 24 hr capsule [Pharmacy Med Name: VENLAFAXINE HCL ER 37.5 MG CAP] 90 capsule 3 Sig: take 1 capsule by mouth once daily ALLERGIES Allergen Reactions Ciprofloxacin Hcl GI Upset Doxycycline Unknown Seasonal Allergies Other: See Comments [employer] (home) [phone] (cell) Last Office Visit Date: 06/05/2023 Last [facility] Health Visit: Visit date not found Future Appointment: 12/07/2023 The patients preferred pharmacy has been captured for this encounter? yes Request is for script(s) to be escript to pharmacy. Ricarda Bermeo LPN documented in this encounter [facility] 10-23-2023 Miscellaneous Notes Pharmacy faxed requesting the following refill. Requested Prescriptions Pending Prescriptions Disp Refills fluticasone-salmeterol (ADVAIR DISKUS) 100-50 mcg/dose inhaler 180 Each 2 Sig: Inhale 1 Puff as instructed two times a day. RINSE AND GARGLE MOUTH WITH WATER AFTER EACH USE. Patient Phone numbers: [phone] (home) Request is for script(s) to be escript to pharmacy. Amalia Hargrove documented in this encounter [facility] 08-11-2023 History of Presen t illness Narrative Images from the original note were not included. Allergy & Immunology Established Visit PATIENT NAME: Madi Bolanos SERVICE DATE: 08/11/2023 HPI: Madi Bolanos is a 67 year old male who presents for follow-up of allergic rhinitis to pollen, chronic cough, mild persistent asthma. Patient notes that he had some flaring of nasal congestion drainage and cough in May and June. He had some questions as to whether this was triggered by stopping immunotherapy regimen last spring. His immunotherapy regimen was targeting grass pollen which I explained would mainly flare if this was problematic during January and February. He does note triggers from weather changes he had stopped using ipratropium regularly.. PAST MEDICAL HISTORY Diagnosis Date Abnormal EKG Acute maxillary sinusitis Acute prostatitis Allergic rhinitis Asthma Body mass index 29.0-29.9, adult Chronic laryngitis Chronic obstructive lung disease (HCC) Elevated PSA Essential (primary) hypertension Fatigue Generalized anxiety disorder GERD (gastroesophageal reflux disease) Hyperlipemia Lateral epicondylitis Other insomnia Pulmonary emphysema (HCC) Raised TSH level Thrombocytopenic disorder (HCC) Tobacco dependence syndrome Vitamin D deficiency ACTIVE PROBLEM LIST Muscle Tension Dysphonia Lprd (Laryngopharyngeal Reflux Disease) Seasonal Allergic Rhinitis Due to Pollen Chronic Cough Mild Persistent Asthma Without Complication Urgency of Urination Frequency of Urination Dysuria Essential (Primary) Hypertension Hyperlipemia Generalized Anxiety Disorder Chronic Insomnia Vasomotor Rhinitis Allergic Rhinitis Due to Dust Mite Allergic Rhinitis Due to Mold PAST SURGICAL HISTORY Procedure Laterality Date CATARACT EXTRACTION HX COLONOSCOPY 04/01/2011 COLONOSCOPY 04/11/2016 PAST SURGICAL HISTORY OF left ear stapedotomy Social History Tobacco Use Smoking status: Former Packs/day: 1.50 Years: 35.00 Additional pack years: 0.00 Total pack years: 52.50 Types: Cigarettes Quit date: 2007 Years since quittin.9 Smokeless tobacco: Former Quit date: 02/10/2008 Vaping Use Vaping Use: Never used Substance Use Topics Alcohol use: Not Currently Comment: none Drug use: No CURRENT OUTPATIENT MEDICATIONS: Current Outpatient Medications Medication Sig Dispense Refill OZEMPIC 0.25 mg or 0.5 mg (2 mg/3 mL) pen INJECT 0.5 MG SUBCUTANEOUSLY ONE TIME A WEEK. IN ADDITION TO 1 MG TO EQUAL 1.5 4 Each 11 OZEMPIC 1 mg/dose (4 mg/3 mL) pen Inject 1 mg subcutaneously one time a week. fluticasone-salmeterol (ADVAIR DISKUS) 100-50 mcg/dose inhaler Inhale 1 Puff as instructed twice daily. Rinse and gargle mouth with water after each use. 180 Each 0 montelukast (SINGULAIR) 10 mg tablet Take 1 tablet by mouth daily at bedtime. 90 tablet 3 ipratropium bromide (ATROVENT) 42 mcg (0.06 %) nasal spray USE 2 SPRAYS IN THE NOSE THREE TIMES DAILY. 15 mL 3 montelukast (SINGULAIR) 10 mg tablet Take 1 tablet by mouth daily at bedtime. 90 tablet 3 EPINEPHrine (EPIPEN) 0.3 mg/0.3 mL auto-injector Inject 0.3 mL intramuscularly as directed. Okay to use generic 2 Each 1 semaglutide (OZEMPIC) 0.25 mg or 0.5 mg(2 mg/1.5 mL) pen Inject 0.25 mg subcutaneously one time a week. 4 Each 0 losartan (COZAAR) 100 mg tablet Take 1 tablet by mouth once daily. 90 tablet 3 mirtazapine (REMERON) 30 mg tablet Take 1 tablet by mouth daily at bedtime. 90 tablet 3 venlafaxine ER (EFFEXOR XR) 37.5 mg 24 hr capsule Take 1 capsule by mouth once daily. 90 capsule 3 albuterol HFA (PROVENTIL HFA, VENTOLIN HFA) 90 mcg/actuation inhaler Inhale 2 Puffs as instructed every 4 hours as needed. 3 Each 3 No current facility-administered medications for this visit. ALLERGIES: ALLERGIES Allergen Reactions Ciprofloxacin Hcl GI Upset Doxycycline Unknown Seasonal Allergies Other: See Comments Hayfever REVIEW OF SYSTEMS: HEENT: sinus trouble RESPIRATORY: cough and sputum CONSTITUTIONALl: No acute distress. No weight loss or gain, no fevers or chills CARDIOVASCULAR: negative for chest pain, leg swelling or palpitations. GASTROINTESTINAL: Negative for abdominal discomfort, No blood in stools or black stools MUSCULOSKELETAL: negative for joint pain or swelling, back pain or muscle pain. NEUROLOGIC:Negative for focal numbness or weakness, headaches and dizziness or syncope. DERM/SKIN: no new rashes, hives, or skin eruptions. PSYCHIATRIC: Negative for sleep disturbance, mood disorder and recent psychosocial stressors HEMATOLOGIC/LYMPHATIC/IMMUNOLOG IC:Negative for cold or heat intolerance, polyuria, polydipsia and goiter. PHYSICAL EXAM: BP 115/72 Pulse 73 Temp (Src) 97.5 (Temporal Artery) Resp 20 Ht 5' 11 (1.80m) Wt 213 lb (96.6kg) SpO2 96% BMI 29.72 kg/(m^2). General appearance: Well appearing, alert, in no acute distress, well-hydrated, well nourished. HENT: External ears normal, canals clear, TM's normal Eyes: no scleral icterus, PERRLA, EOMS, no conjunctivitis Nose/Sinuses: Nares normal. Septum midline. Mucosa normal. No drainage or sinus tenderness. Oropharynx: Lips, mucosa, and tongue normal, teeth and gums normal, oropharynx normal [place] Classification:Class II Respiratory: Lungs clear to auscultation. No wheezing, rhonchi, rales Cardiovascular: RRR without murmur, gallop, or rubs. No ectopy Gastroenterology: normal appearing abdomen on inspection Musculoskeletal: No joint pain, muscle weakness, or impaired gait Integumentary: Negative for lesions, rash, and itching. Psychiatric: Alert and oriented x 3. No mood disorders noted, calm affect. DATA: Diagnostic tests reviewed for today's visit were personally reviewed by me: Most recent labs SPIROMETRY BASELINE ONLY ([id number]) - ordered on 04/26/21 No textual results for order. ASTHMA CONTROL TEST (2007 - ) 11/29/2021 12/13/2022 08/09/2023 ASTHMA WORK (2007) - - - ASTHMA SOB (2007) - - - ASTHMA SLEEP (2007) - - - ASTHMA MED (2007) - - - ASTHMA CONTROL (2007) - - - ACT TOTAL SCORE - - - In the past 4 weeks, how much of the time did your asthma keep you from getting as much done at work, school, or at home? 5 None of the time 5 None of the time 5 None of the time During the past 4 weeks, how often have you had shortness of breath? 4 Once or twice a week 5 Not at all 5 Not at all During the past 4 weeks, how often did your asthma symptoms (wheezing, coughing, shortness of breath, chest tightness or pain) wake you up at night or earlier than usual in the morning? 5 Not at all 5 Not at all 5 Not at all During the past 4 weeks, how often have you used your rescue inhaler or nebulizer medication (such as albuterol)? 4 Once a week or less 4 Once a week or less 4 Once a week or less How would you rate your asthma control during the past 4 weeks? 4 Well controlled 5 Completely controlled 5 Completely controlled Asthma Control Test Score 22 24 24 No question data found. Glucose (no units) Date Value 12/21/2021 94 Potassium (no units) Date Value 12/21/2021 4.0 Sodium (no units) Date Value 12/21/2021 138 Chloride (no units) Date Value 12/21/2021 106 CO2 (no units) Date Value 12/21/2021 26 Creatinine (mg/dL) Date Value 12/21/2011 0.92 BUN (no units) Date Value 12/21/2021 17 Anion Gap (no units) Date Value 12/21/2021 6 Calcium (no units) Date Value 12/21/2021 7.9 Protein, Total (no units) Date Value 12/21/2021 7.7 Albumin (no units) Date Value 12/21/2021 3.8 Bilirubin, Total (no units) Date Value 12/21/2021 0.5 Alkaline Phosphatase (no units) Date Value 12/21/2021 143 AST (no units) Date Value 12/21/2021 47 ALT (no units) Date Value 12/21/2021 80 WBC Date Value Ref Range Status 12/21/2011 6.79 3.70 - 11.00 k/uL Final Comment: Result checked and verified RBC Date Value Ref Range Status 12/21/2011 4.69 4.20 - 6.00 m/uL Final Hemoglobin Date Value Ref Range Status 12/21/2011 14.9 13.0 - 17.0 g/dL Final Hematocrit Date Value Ref Range Status 12/21/2011 43.8 39.0 - 51.0 % Final MCV Date Value Ref Range Status 12/21/2011 93.4 80.0 - 100.0 fL Final MCH Date Value Ref Range Status 12/21/2011 31.8 26.0 - 34.0 pG Final MCHC Date Value Ref Range Status 12/21/2011 34.0 30.5 - 36.0 g/dL Final RDW-CV Date Value Ref Range Status 12/21/2011 13.0 11.5 - 15.0 % Final Platelet Count Date Value Ref Range Status 12/21/2011 128 (L) 150 - 400 k/uL Final Comment: Result rechecked. MPV Date Value Ref Range Status 12/21/2011 13.9 (H) 9.0 - 12.7 fL Final Abs Neut (ANC) Date Value Ref Range Status 03/24/2001 6.29 1.8 - 7.7 K/uL Final Lymph% Date Value Ref Range Status 03/24/2001 26.1 22 - 44 % Final Abs Lymph Date Value Ref Range Status 03/24/2001 2.51 1.0 - 4.0 k/uL Final [place]% Date Value Ref Range Status 03/24/2001 7.2 (A) 0 - 7.0 % Final Abs [place] Date Value Ref Range Status 03/24/2001 0.69 0 - 0.8 K/uL Final Abs Eosin Date Value Ref Range Status 03/24/2001 0.08 0 - 0.4 K/uL Final Baso% Date Value Ref Range Status 03/24/2001 0.3 0 - 1 % Final Abs Baso Date Value Ref Range Status 03/24/2001 0.03 0 - 0.2 K/uL Final No results found for: IGE, IGG No follow-ups on file. (J30.1) Seasonal allergic rhinitis due to pollen (primary encounter diagnosis) (J45.30) Mild persistent asthma without complication (J30.0) Vasomotor rhinitis (R05.3) Chronic cough (R49.0) Muscle tension dysphonia PLAN: There are no Patient Instructions on file for this visit. Continue inhaler regimen Ipratropium at least daily until cough resolves titrate to achieve symptom relief Follow-up in 1 year I spent a total of 26 minutes on the date of the service which included preparing to see the patient, [id number] patient care, completing clinical documentation, performing a medically appropriate examination, and counseling and educating the patient/family/caregiver. Jacob Adam MD documented in this encounter [facility] 06-21-2023 History of Presen t illness Narrative ESTABLISHED PATIENT OFFICE VISIT HISTORY OF PRESENT ILLNESS Patient presents with: Benign Prostatic Hypertrophy Elevated PSA Madi Bolanos is a 67 year old male who presents with for follow up regarding New problem- none LAB RESULTS Creatinine Date Value Ref Range Status 12/21/2011 0.92 0.70 - 1.40 mg/dL Final PSA (ng/mL) Date Value 12/24/2019 3.57 12/11/2018 4.44 Color (no units) Date Value 12/21/2011 Yellow Clarity (no units) Date Value 12/21/2011 Clear Glucose, Urine (mg/dL) Date Value 12/21/2011 Negative Bilirubin, Urine (no units) Date Value 12/21/2011 Negative Ketones, Urine (no units) Date Value 12/21/2011 Negative Specific [place], Ur (no units) Date Value 12/21/2011 1.020 Hemoglobin/Blood,Ur (no units) Date Value 12/21/2011 Negative pH, Urine (no units) Date Value 12/21/2011 6.0 Protein, Urine (mg/dL) Date Value 12/21/2011 Negative Urobilinogen (no units) Date Value 12/21/2011 Normal Nitrites (no units) Date Value 12/21/2011 Negative Leukest (no units) Date Value 12/21/2011 Negative ALLERGIES Allergen Reactions Ciprofloxacin Hcl GI Upset Doxycycline Unknown Seasonal Allergies Other: See Comments Hayfever MEDICATIONS: albuterol HFA (PROVENTIL HFA, VENTOLIN HFA) 90 mcg/actuation inhaler Inhale 2 Puffs as instructed every 4 hours as needed. COMPOUNDED PRESCRIPTION Allergy injections (immunotherathy) started January 2013 (Patient not taking: Reported on 06/05/2023) EPINEPHrine (EPIPEN) 0.3 mg/0.3 mL auto-injector Inject 0.3 mL intramuscularly as directed. Okay to use generic fluticasone-salmeterol (ADVAIR DISKUS) 100-50 mcg/dose inhaler Inhale 1 Puff as instructed twice daily. Rinse and gargle mouth with water after each use. ipratropium bromide (ATROVENT) 42 mcg (0.06 %) nasal spray USE 2 SPRAYS IN THE NOSE THREE TIMES DAILY. losartan (COZAAR) 100 mg tablet Take 1 tablet by mouth once daily. mirtazapine (REMERON) 30 mg tablet Take 1 tablet by mouth daily at bedtime. montelukast (SINGULAIR) 10 mg tablet Take 1 tablet by mouth daily at bedtime. (Patient not taking: Reported on 06/05/2023) montelukast (SINGULAIR) 10 mg tablet Take 1 tablet by mouth daily at bedtime. OZEMPIC 1 mg/dose (4 mg/3 mL) pen Inject 1 mg subcutaneously one time a week. semaglutide (OZEMPIC) 0.25 mg or 0.5 mg(2 mg/1.5 mL) pen Inject 0.25 mg subcutaneously one time a week. (Patient not taking: Reported on 06/21/2023) semaglutide (OZEMPIC) 0.25 mg or 0.5 mg(2 mg/1.5 mL) pen Inject 0.5 mg subcutaneously one time a week. In addition to 1 mg to equal 1.5 venlafaxine ER (EFFEXOR XR) 37.5 mg 24 hr capsule Take 1 capsule by mouth once daily. REVIEW OF SYSTEMS GENERAL:no unintentional weight loss, malaise or fevers. NEUROLOGIC: pt is alert and oriented GENITOURINARY: No history of dysuria, frequency or incontinence, Positive for BPH The remainder of the ROS was reviewed and is negative. HISTORIES PAST MEDICAL HISTORY Diagnosis Date Abnormal EKG Acute maxillary sinusitis Acute prostatitis Allergic rhinitis Asthma Body mass index 29.0-29.9, adult Chronic laryngitis Chronic obstructive lung disease (HCC) Elevated PSA Essential (primary) hypertension Fatigue Generalized anxiety disorder GERD (gastroesophageal reflux disease) Hyperlipemia Lateral epicondylitis Other insomnia Pulmonary emphysema (HCC) Raised TSH level Thrombocytopenic disorder (HCC) Tobacco dependence syndrome Vitamin D deficiency FAMILY HISTORY Problem Relation Age of Onset Emphysema Father other (lung cancer) Father 71 Cancer Mother 79 Hypertension Mother Lipids Brother Lipids Sister PAST SURGICAL HISTORY Procedure Laterality Date CATARACT EXTRACTION HX COLONOSCOPY 04/01/2011 COLONOSCOPY 04/11/2016 PAST SURGICAL HISTORY OF left ear stapedotomy SOCIAL HISTORY Social History Tobacco Use Smoking status: Former Packs/day: 1.50 Years: 35.00 Additional pack years: 0.00 Total pack years: 52.50 Types: Cigarettes Quit date: 2007 Years since quittin.7 Smokeless tobacco: Former Quit date: 02/10/2008 Vaping Use Vaping Use: Never used Substance Use Topics Alcohol use: Not Currently Comment: none Drug use: No PHYSICAL EXAMINATION General appearance: Well appearing, alert, in no acute distress, well-hydrated, well nourished Psych Alert and oriented to person, place and time Respiratory: no wheezing or rhonchi Abdomen Genitourinary: MALE EXAM: Rectal Exam: Not Indicated 06/19/2023 PSA 3.2 06/09/2022 PSA 2.9 05/04/2021 PSA 3.8 12/29/2020 PSA 5.3 12/20/2019 PSA 3.6 12/11/2018 PSA 4.4 07/20/2018 PSA 4.4 10/07/2016 PSA 2.6 11/25/2015 PSA 2.5 Assessment and Plan: BPH/LUTS- stable and on no meds, no hematuria/dysuria Elevated prostate- no Fhx of [employer], prior MERY B9, latest PSA stable @ 3.2. I told him guidelines now say to stop checking at age 67 so can f/u PRN documented in this encounter [facility] 06-05-2023 History of Presen t illness Narrative Images from the original note were not included. [facility] Medicine Kate Hunter DO [address] [place] [address] Date of Evaluation: 06/05/2023 Patient Name: Madi Bolanos : 1955 Chief Complaint: Patient presents with: 6 Month Exam Hypertension Nursing Intake: There are no exam notes on file for this visit. Subjective Mr. Bolanos is a 67 year old male who presents with the following complaint(s): The history is provided by the patient. No specialized language instructor was used. Hypertension This is a chronic problem. The current episode started more than 1 year ago. The problem is controlled. Pertinent negatives include no chest pain, headaches, palpitations or shortness of breath. Hypercholesterolemia This is a chronic problem. The current episode started more than 1 year ago. Pertinent negatives include no chest pain or shortness of breath. Review of Systems Constitutional: Negative for fatigue and unexpected weight change. HENT: Negative for nosebleeds. Eyes: Negative for redness and visual disturbance. Respiratory: Negative for apnea, cough and shortness of breath. Cardiovascular: Negative for chest pain, palpitations and leg swelling. Genitourinary: Negative for hematuria. Neurological: Negative for dizziness, weakness, light-headedness, numbness and headaches. Hematological: Does not bruise/bleed easily. Psychiatric/Behavioral: The patient is not nervous/anxious. PAST MEDICAL HISTORY Diagnosis Date Abnormal EKG Acute maxillary sinusitis Acute prostatitis Allergic rhinitis Asthma Body mass index 29.0-29.9, adult Chronic laryngitis Chronic obstructive lung disease (HCC) Elevated PSA Essential (primary) hypertension Fatigue Generalized anxiety disorder GERD (gastroesophageal reflux disease) Hyperlipemia Lateral epicondylitis Other insomnia Pulmonary emphysema (HCC) Raised TSH level Thrombocytopenic disorder (HCC) Tobacco dependence syndrome Vitamin D deficiency PAST SURGICAL HISTORY Procedure Laterality Date CATARACT EXTRACTION HX COLONOSCOPY 04/01/2011 COLONOSCOPY 04/11/2016 PAST SURGICAL HISTORY OF left ear stapedotomy FAMILY HISTORY Problem Relation Age of Onset Emphysema Father other (lung cancer) Father 71 Cancer Mother 79 Hypertension Mother Lipids Brother Lipids Sister Social History Tobacco Use Smoking status: Former Packs/day: 1.50 Years: 35.00 Additional pack years: 0.00 Total pack years: 52.50 Types: Cigarettes Quit date: 2007 Years since quittin.7 Smokeless tobacco: Former Quit date: 02/10/2008 Vaping Use Vaping Use: Never used Substance Use Topics Alcohol use: Not Currently Comment: none Drug use: No Current Outpatient Medications Medication Sig ipratropium bromide (ATROVENT) 42 mcg (0.06 %) nasal spray USE 2 SPRAYS IN THE NOSE THREE TIMES DAILY. EPINEPHrine (EPIPEN) 0.3 mg/0.3 mL auto-injector Inject 0.3 mL intramuscularly as directed. Okay to use generic losartan (COZAAR) 100 mg tablet Take 1 tablet by mouth once daily. mirtazapine (REMERON) 30 mg tablet Take 1 tablet by mouth daily at bedtime. venlafaxine ER (EFFEXOR XR) 37.5 mg 24 hr capsule Take 1 capsule by mouth once daily. fluticasone-salmeterol (ADVAIR DISKUS) 100-50 mcg/dose inhaler Inhale 1 Puff as instructed twice daily. Rinse and gargle mouth with water after each use. albuterol HFA (PROVENTIL HFA, VENTOLIN HFA) 90 mcg/actuation inhaler Inhale 2 Puffs as instructed every 4 hours as needed. montelukast (SINGULAIR) 10 mg tablet TAKE 1 TABLET BY MOUTH EVERYDAY AT BEDTIME OZEMPIC 1 mg/dose (4 mg/3 mL) pen Inject 1 mg subcutaneously one time a week. semaglutide (OZEMPIC) 0.25 mg or 0.5 mg(2 mg/1.5 mL) pen Inject 0.5 mg subcutaneously one time a week. (Patient not taking: Reported on 06/05/2023) montelukast (SINGULAIR) 10 mg tablet Take 1 tablet by mouth daily at bedtime. (Patient not taking: Reported on 06/05/2023) semaglutide (OZEMPIC) 0.25 mg or 0.5 mg(2 mg/1.5 mL) pen Inject 0.25 mg subcutaneously one time a week. (Patient not taking: Reported on 06/05/2023) COMPOUNDED PRESCRIPTION Allergy injections (immunotherathy) started January 2013 (Patient not taking: Reported on 06/05/2023) No current facility-administered medications for this visit. I have confirmed and edited as necessary the past medical, family and social histories, HPI, and ROS obtained by others. Objective BP 120/70 Pulse 87 Temp 97.7 Ht 5' 11 (1.80m) Wt 204 lb (92.5kg) SpO2 96% BMI 28.46 kg/(m^2). Physical Exam Vitals and nursing note reviewed. Constitutional: General: He is not in acute distress. Appearance: Normal appearance. He is well-developed. He is not ill-appearing. HENT: Head: Normocephalic. Right Ear: Tympanic membrane, ear canal and external ear normal. There is no impacted cerumen. Left Ear: Tympanic membrane, ear canal and external ear normal. There is no impacted cerumen. Nose: Nose normal. Mouth/Throat: Mouth: Mucous membranes are moist. Pharynx: Oropharynx is clear. Uvula midline. No oropharyngeal exudate or posterior oropharyngeal erythema. Eyes: General: Lids are normal. Vision grossly intact. Gaze aligned appropriately. No scleral icterus. Right eye: No discharge. Left eye: No discharge. Extraocular Movements: Extraocular movements intact. Conjunctiva/sclera: Conjunctivae normal. Pupils: Pupils are equal, round, and reactive to light. Neck: Thyroid: No thyroid mass, thyromegaly or thyroid tenderness. Vascular: No carotid bruit. Trachea: Trachea and phonation normal. Cardiovascular: Rate and Rhythm: Normal rate and regular rhythm. Pulses: Normal pulses. Heart sounds: Normal heart sounds. Pulmonary: Effort: Pulmonary effort is normal. Breath sounds: Normal breath sounds. Abdominal: General: Abdomen is flat. Bowel sounds are normal. Palpations: Abdomen is soft. Musculoskeletal: General: Normal range of motion. Right shoulder: Normal. Left shoulder: Normal. Cervical back: Normal, full passive range of motion without pain and neck supple. No tenderness. No spinous process tenderness. Thoracic back: Normal. Lumbar back: Normal. Right knee: Normal. Left knee: Normal. Right lower leg: No edema. Left lower leg: No edema. Lymphadenopathy: Cervical: No cervical adenopathy. Skin: General: Skin is warm and dry. Neurological: General: No focal deficit present. Mental Status: He is alert and oriented to person, place, and time. Mental status is at baseline. Sensory: Sensation is intact. Motor: Motor function is intact. Psychiatric: Attention and Perception: Attention and perception normal. Mood and Affect: Mood normal. Speech: Speech normal. Behavior: Behavior normal. Thought Content: Thought content normal. Judgment: Judgment normal. Data Reviewed: Most recent labs ASSESSMENT/PLAN: 1. Essential (primary) hypertension - ICD9: 401.9, ICD10: I10 (primary diagnosis) - Controlled - Continue current medications - Recommend home blood pressure monitoring, to bring results to next visit - Encouraged sodium restriction, DASH or Mediterranean diet - Recommend regular aerobic exercise 2. Mixed hyperlipidemia - ICD9: 272.2, ICD10: E78.2 3. Overweight with body mass index (BMI) of 28 to 28.9 in adult - ICD9: 278.02, V85.24, ICD10: E66.3, Z68.28 - Increase Ozempic to 1.5 due to patient no longer losing weight on 1 - OZEMPIC 0.25 MG OR 0.5 MG (2 MG/1.5 ML) SUBCUTANEOUS PEN INJECTOR 4. Seasonal allergic rhinitis due to pollen - ICD9: 477.0, ICD10: J30.1 - Continue current medication. - FLUTICASONE 100 MCG-SALMETEROL 50 MCG/DOSE BLISTR POWDR FOR INHALATION - MONTELUKAST 10 MG TABLET Return in about 6 months (around 12/04/2023) for medication follow up. Attestation: Scribe Statement: Emely Nuñez am scribing for, and in the presence of, Tanvir Hunter DO June 05, 2023 3:03 PM. Physician Statement: ITanvir DO, personally performed the services described in the documentation, as scribed by Heide Nuñez in my presence, and it is both accurate and complete 2022 7:56 PM. documented in this encounter [facility] 01-16-2023 History of Presen t illness Narrative Pt identified by name and birthdate. Yes Allergy injection(s) given SQ. By Ana Urbina RN January 16, 2023 2:38 PM Patient states they took antihistamine. Patient states took Zyrtec at 2200 yesterday.Patient states they did not have a large late local reaction to previous injection. If patient has asthma, patient states symptoms controlled: N/A Patient states they did not report a recent illness. Patient on Beta rommel:No Patient has their Epi pen with them,Yes Vial Content: GRASSES Immunotherapy Order written on: 08/30/[address] Jacob Adam [phone] Concentration: 1:1 Dose: 0.4 ml SQ Arm: left upper arm (proximal) Reaction after 30 minutes: pea size induration and flare Appointment line and nurses station number given as well as injection times at administering location. Ana Urbina documented in this encounter [facility] 12-20-2022 History of Presen t illness Narrative Images from the original note were not included. Allergy & Immunology Established Visit PATIENT NAME: Madi Bolanos SERVICE DATE: 12/20/2022 HPI: Madi Bolanos is a 67 year old male who presents for follow-up of chronic rhinitis, chronic cough. Patient notes still having issues with throat clearing. He had done well in the past with Elavil. He notes that this has not been as intense as before and has good and bad days. He overall feels that his immunotherapy regimen is improved significantly. He has completed 5 years at maintenance dosages and will finish up to his current vial and then monitor off immunotherapy. His main seasonal flareup was late spring early summer correlating with grass pollen.. PAST MEDICAL HISTORY Diagnosis Date Abnormal EKG Acute maxillary sinusitis Acute prostatitis Allergic rhinitis Asthma Body mass index 29.0-29.9, adult Chronic laryngitis Chronic obstructive lung disease (HCC) Elevated PSA Essential (primary) hypertension Fatigue Generalized anxiety disorder GERD (gastroesophageal reflux disease) Hyperlipemia Lateral epicondylitis Other insomnia Pulmonary emphysema (HCC) Raised TSH level Thrombocytopenic disorder (HCC) Tobacco dependence syndrome Vitamin D deficiency ACTIVE PROBLEM LIST Muscle Tension Dysphonia Lprd (Laryngopharyngeal Reflux Disease) Seasonal Allergic Rhinitis Due to Pollen Chronic Cough Mild Persistent Asthma Without Complication Urgency of Urination Frequency of Urination Dysuria Essential (Primary) Hypertension Hyperlipemia Generalized Anxiety Disorder Chronic Insomnia Vasomotor Rhinitis Allergic Rhinitis Due to Dust Mite Allergic Rhinitis Due to Mold PAST SURGICAL HISTORY Procedure Laterality Date CATARACT EXTRACTION HX COLONOSCOPY 04/01/2011 COLONOSCOPY 04/11/2016 PAST SURGICAL HISTORY OF left ear stapedotomy Social History Tobacco Use Smoking status: Former Packs/day: 1.50 Years: 35.00 Pack years: 52.50 Types: Cigarettes Quit date: 2007 Years since quittin.2 Smokeless tobacco: Former Quit date: 02/10/2008 Vaping Use Vaping Use: Never used Substance Use Topics Alcohol use: Not Currently Comment: none Drug use: No CURRENT OUTPATIENT MEDICATIONS: Current Outpatient Medications Medication Sig Dispense Refill EPINEPHrine (EPIPEN) 0.3 mg/0.3 mL auto-injector Inject 0.3 mL intramuscularly as directed. Okay to use generic 2 Each 1 semaglutide (OZEMPIC) 0.25 mg or 0.5 mg(2 mg/1.5 mL) pen Inject 0.25 mg subcutaneously one time a week. 4 Each 0 losartan (COZAAR) 100 mg tablet Take 1 tablet by mouth once daily. 90 tablet 3 mirtazapine (REMERON) 30 mg tablet Take 1 tablet by mouth daily at bedtime. 90 tablet 3 venlafaxine ER (EFFEXOR XR) 37.5 mg 24 hr capsule Take 1 capsule by mouth once daily. 90 capsule 3 fluticasone-salmeterol (ADVAIR DISKUS) 100-50 mcg/dose inhaler Inhale 1 Puff as instructed twice daily. Rinse and gargle mouth with water after each use. 180 Each 0 albuterol HFA (PROVENTIL HFA, VENTOLIN HFA) 90 mcg/actuation inhaler Inhale 2 Puffs as instructed every 4 hours as needed. 3 Each 3 montelukast (SINGULAIR) 10 mg tablet TAKE 1 TABLET BY MOUTH EVERYDAY AT BEDTIME 90 tablet 3 COMPOUNDED PRESCRIPTION Allergy injections (immunotherathy) started January 2013 No current facility-administered medications for this visit. ALLERGIES: ALLERGIES Allergen Reactions Ciprofloxacin Hcl GI Upset Doxycycline Unknown Seasonal Allergies Other: See Comments Hayfever REVIEW OF SYSTEMS: HEENT: sinus trouble and hoarseness RESPIRATORY: cough and sputum CONSTITUTIONALl: No acute distress. No weight loss or gain, no fevers or chills CARDIOVASCULAR: negative for chest pain, leg swelling or palpitations. GASTROINTESTINAL: Negative for abdominal discomfort, No blood in stools or black stools MUSCULOSKELETAL: negative for joint pain or swelling, back pain or muscle pain. NEUROLOGIC:Negative for focal numbness or weakness, headaches and dizziness or syncope. DERM/SKIN: no new rashes, hives, or skin eruptions. PSYCHIATRIC: Negative for sleep disturbance, mood disorder and recent psychosocial stressors HEMATOLOGIC/LYMPHATIC/IMMUNOLOG IC:Negative for cold or heat intolerance, polyuria, polydipsia and goiter. PHYSICAL EXAM: BP 132/74 Pulse 63 Temp (Src) 98 (Temporal) Resp 20 Ht 5' 11 (1.80m) Wt 220 lb (99.8kg) SpO2 99% BMI 30.70 kg/(m^2). General appearance: Well appearing, alert, in no acute distress, well-hydrated, well nourished. HENT: External ears normal, canals clear, TM's normal Eyes: no scleral icterus, PERRLA, EOMS, no conjunctivitis Nose/Sinuses: Nares normal. Septum midline. Mucosa normal. No drainage or sinus tenderness. Oropharynx: Lips, mucosa, and tongue normal, teeth and gums normal, oropharynx normal [place] Classification:Class II Respiratory: Lungs clear to auscultation. No wheezing, rhonchi, rales Cardiovascular: RRR without murmur, gallop, or rubs. No ectopy Gastroenterology: normal appearing abdomen on inspection Musculoskeletal: No joint pain, muscle weakness, or impaired gait Integumentary: Negative for lesions, rash, and itching. Psychiatric: Alert and oriented x 3. No mood disorders noted, calm affect. DATA: Diagnostic tests reviewed for today's visit were personally reviewed by me: Most recent labs SPIROMETRY BASELINE ONLY ([id number]) - ordered on 04/26/21 No textual results for order. No question data found. Glucose (no units) Date Value 12/21/2021 94 Potassium (no units) Date Value 12/21/2021 4.0 Sodium (no units) Date Value 12/21/2021 138 Chloride (no units) Date Value 12/21/2021 106 CO2 (no units) Date Value 12/21/2021 26 Creatinine (mg/dL) Date Value 12/21/2011 0.92 BUN (no units) Date Value 12/21/2021 17 Anion Gap (no units) Date Value 12/21/2021 6 Calcium (no units) Date Value 12/21/2021 7.9 Protein, Total (no units) Date Value 12/21/2021 7.7 Albumin (no units) Date Value 12/21/2021 3.8 Bilirubin, Total (no units) Date Value 12/21/2021 0.5 Alkaline Phosphatase (no units) Date Value 12/21/2021 143 AST (no units) Date Value 12/21/2021 47 ALT (no units) Date Value 12/21/2021 80 WBC Date Value Ref Range Status 12/21/2011 6.79 3.70 - 11.00 k/uL Final Comment: Result checked and verified RBC Date Value Ref Range Status 12/21/2011 4.69 4.20 - 6.00 m/uL Final Hemoglobin Date Value Ref Range Status 12/21/2011 14.9 13.0 - 17.0 g/dL Final Hematocrit Date Value Ref Range Status 12/21/2011 43.8 39.0 - 51.0 % Final MCV Date Value Ref Range Status 12/21/2011 93.4 80.0 - 100.0 fL Final MCH Date Value Ref Range Status 12/21/2011 31.8 26.0 - 34.0 pG Final MCHC Date Value Ref Range Status 12/21/2011 34.0 30.5 - 36.0 g/dL Final RDW-CV Date Value Ref Range Status 12/21/2011 13.0 11.5 - 15.0 % Final Platelet Count Date Value Ref Range Status 12/21/2011 128 (L) 150 - 400 k/uL Final Comment: Result rechecked. MPV Date Value Ref Range Status 12/21/2011 13.9 (H) 9.0 - 12.7 fL Final Abs Neut (ANC) Date Value Ref Range Status 03/24/2001 6.29 1.8 - 7.7 K/uL Final Lymph% Date Value Ref Range Status 03/24/2001 26.1 22 - 44 % Final Abs Lymph Date Value Ref Range Status 03/24/2001 2.51 1.0 - 4.0 k/uL Final [place]% Date Value Ref Range Status 03/24/2001 7.2 (A) 0 - 7.0 % Final Abs [place] Date Value Ref Range Status 03/24/2001 0.69 0 - 0.8 K/uL Final Abs Eosin Date Value Ref Range Status 03/24/2001 0.08 0 - 0.4 K/uL Final Baso% Date Value Ref Range Status 03/24/2001 0.3 0 - 1 % Final Abs Baso Date Value Ref Range Status 03/24/2001 0.03 0 - 0.2 K/uL Final No results found for: IGE, IGG No follow-ups on file. (J30.1) Seasonal allergic rhinitis due to pollen (primary encounter diagnosis) (J30.89) Allergic rhinitis due to mold (J45.30) Mild persistent asthma without complication (J30.0) Vasomotor rhinitis (R05.3) Chronic cough (R49.0) Muscle tension dysphonia PLAN: There are no Patient Instructions on file for this visit. Trial again of ipratropium titrate to achieve symptom relief start with 3 times per day and adjust accordingly Finish allergen immunotherapy regimen Repeat skin testing in 6 months I spent a total of 25 minutes on the date of the service which included preparing to see the patient, [id number] patient care, completing clinical documentation, performing a medically appropriate examination, counseling and educating the patient/family/caregiver, and ordering medications, tests, or procedures. Jacob Adam MD documented in this encounter [facility] 12-20-2022 History of Presen t illness Narrative Pt identified by name and birthdate. Allergy injections given subcutaneously by Maryann Martinez RN. December 20, 2022 Time Given: 1047 Patient states they took antihistamine. Patient states took Zyrtec at 2300 yesterday.. Immunotherapy Order written on: August 30, [address] Jacob Adam If patient has asthma, patient states symptoms controlled: N/A Patient did not report a recent illness. Patient on Beta rommel:N/A Patient has their Epi pen with them, Yes Vial A Content: GRASSES Patient did not have a large late local reaction to previous injection. Concentration: 1:1 Dose: 0.35 ml SQ Arm: right upper arm (distal) Reaction after 30 minutes: pinpoint Previously instructed about signs and symptoms of local and systemic reactions. Appointment line and nurses station number given as well as injection times at administering location. Yris Martinez, RN documented in this encounter [facility] 11-29-2022 History of Presen t illness Narrative Pt identified by name and birthdate. Allergy injections given subcutaneously by Haven Fajardo RN. November 29, 2022 Time Given: 07 Patient states they took antihistamine. Patient states took Zyrtec / at 2300 yesterday. Immunotherapy Order written on: 08/30/[address] Jacob Adam If patient has asthma, patient states symptoms controlled: N/A Patient did not report a recent illness. Patient on Beta rommel:No Patient has their Epi pen with them, Yes Vial A Content: GRASSES Patient did not have a large late local reaction to previous injection. Concentration: 1:1 Dose: 0.3 ml SQ Arm: left upper arm (proximal) Reaction after 30 minutes: None Previously instructed about signs and symptoms of local and systemic reactions. Appointment line and nurses station number given as well as injection times at administering location. Haven Fajardo documented in this encounter [facility] 11-15-2022 Miscellaneous Notes Done Pt was seen today. You discussed if his insurance would pay for Ozempic (semaslutide). He said his insurance WILL pay so he would like it sent in. [facility] Kate Scanlon documented in this encounter [facility] 11-15-2022 Miscellaneous Notes Addended by: TANVIR HUNTER on: 11/15/2022 10:15 AM Modules accepted: Orders documented in this encounter [facility] 11-15-2022 Miscellaneous Notes Patient's epi has . documented in this encounter [facility] 11-14-2022 History of Presen t illness Narrative Images from the original note were not included. [facility] [address] [place] [address] Date of Evaluation: 11/14/2022 Patient Name: Madi Bolanos : 1955 Chief Complaint: Patient presents with: Hypertension patient requesting blood work Nursing Intake: There are no exam notes on file for this visit. Subjective Mr. Bolanos is a 67 year old male who presents with the following complaint(s): The history is provided by the patient. No specialized language instructor was used. Hypertension This is a chronic problem. The current episode started more than 1 year ago. Pertinent negatives include no chest pain, headaches, palpitations or shortness of breath. Anxiety Pertinent negatives include no weakness. This is a chronic problem. Hypercholesterolemia This is a chronic problem. Pertinent negatives include no chest pain or shortness of breath. Review of Systems Constitutional: Negative for fatigue and unexpected weight change. HENT: Negative for nosebleeds. Eyes: Negative for redness and visual disturbance. Respiratory: Negative for apnea, cough and shortness of breath. Cardiovascular: Negative for chest pain, palpitations and leg swelling. Genitourinary: Negative for hematuria. Neurological: Negative for dizziness, weakness, light-headedness, numbness and headaches. Hematological: Does not bruise/bleed easily. Psychiatric/Behavioral: The patient is nervous/anxious. PAST MEDICAL HISTORY Diagnosis Date Abnormal EKG Acute maxillary sinusitis Acute prostatitis Allergic rhinitis Asthma Body mass index 29.0-29.9, adult Chronic laryngitis Chronic obstructive lung disease (HCC) Elevated PSA Essential (primary) hypertension Fatigue Generalized anxiety disorder GERD (gastroesophageal reflux disease) Hyperlipemia Lateral epicondylitis Other insomnia Pulmonary emphysema (HCC) Raised TSH level Thrombocytopenic disorder (HCC) Tobacco dependence syndrome Vitamin D deficiency PAST SURGICAL HISTORY Procedure Laterality Date CATARACT EXTRACTION HX COLONOSCOPY 04/01/2011 COLONOSCOPY 04/11/2016 PAST SURGICAL HISTORY OF left ear stapedotomy FAMILY HISTORY Problem Relation Age of Onset Emphysema Father other (lung cancer) Father 71 Cancer Mother 79 Hypertension Mother Lipids Brother Lipids Sister Social History Tobacco Use Smoking status: Former Packs/day: 1.50 Years: 35.00 Pack years: 52.50 Types: Cigarettes Quit date: 2007 Years since quittin.1 Smokeless tobacco: Former Quit date: 02/10/2008 Vaping Use Vaping Use: Never used Substance Use Topics Alcohol use: Not Currently Comment: none Drug use: No Current Outpatient Medications Medication Sig Dispense Refill fluticasone-salmeterol (ADVAIR DISKUS) 100-50 mcg/dose inhaler Inhale 1 Puff as instructed twice daily. Rinse and gargle mouth with water after each use. 180 Each 0 albuterol HFA (PROVENTIL HFA, VENTOLIN HFA) 90 mcg/actuation inhaler Inhale 2 Puffs as instructed every 4 hours as needed. 3 Each 3 montelukast (SINGULAIR) 10 mg tablet TAKE 1 TABLET BY MOUTH EVERYDAY AT BEDTIME 90 tablet 3 EPINEPHrine (EPIPEN) 0.3 mg/0.3 mL auto-injector Inject 0.3 mL intramuscularly as directed. Okay to use generic 2 Each 1 COMPOUNDED PRESCRIPTION Allergy injections (immunotherathy) started January 2013 losartan (COZAAR) 100 mg tablet Take 1 tablet by mouth once daily. 90 tablet 3 mirtazapine (REMERON) 30 mg tablet Take 1 tablet by mouth daily at bedtime. 90 tablet 3 venlafaxine ER (EFFEXOR XR) 37.5 mg 24 hr capsule Take 1 capsule by mouth once daily. 90 capsule 3 ipratropium bromide (ATROVENT) 42 mcg (0.06 %) nasal spray Use 2 Sprays in the nose three times daily. (Patient not taking: Reported on 11/14/2022) 27 mL 3 atorvastatin (LIPITOR) 20 mg tablet Take 1 tablet by mouth once daily. (Patient not taking: Reported on 11/14/2022) 90 tablet 3 No current facility-administered medications for this visit. I have confirmed and edited as necessary the past medical, family and social histories, HPI, and ROS obtained by others. Objective BP 124/80 Pulse 78 Temp 97.6 Ht 5' 11 (1.80m) Wt 225 lb (102.1kg) SpO2 96% BMI 31.39 kg/(m^2). Physical Exam Vitals and nursing note reviewed. Constitutional: General: He is not in acute distress. Appearance: Normal appearance. He is well-developed. He is not ill-appearing. HENT: Head: Normocephalic. Right Ear: Tympanic membrane, ear canal and external ear normal. There is no impacted cerumen. Left Ear: Tympanic membrane, ear canal and external ear normal. There is no impacted cerumen. Nose: Nose normal. Mouth/Throat: Mouth: Mucous membranes are moist. Pharynx: Oropharynx is clear. Uvula midline. No oropharyngeal exudate or posterior oropharyngeal erythema. Eyes: General: Lids are normal. Vision grossly intact. Gaze aligned appropriately. No scleral icterus. Right eye: No discharge. Left eye: No discharge. Extraocular Movements: Extraocular movements intact. Conjunctiva/sclera: Conjunctivae normal. Pupils: Pupils are equal, round, and reactive to light. Neck: Thyroid: No thyroid mass, thyromegaly or thyroid tenderness. Vascular: No carotid bruit. Trachea: Trachea and phonation normal. Cardiovascular: Rate and Rhythm: Normal rate and regular rhythm. Pulses: Normal pulses. Heart sounds: Normal heart sounds. Pulmonary: Effort: Pulmonary effort is normal. Breath sounds: Normal breath sounds. Abdominal: General: Abdomen is flat. Bowel sounds are normal. Palpations: Abdomen is soft. Genitourinary: Prostate: Normal. Musculoskeletal: General: Normal range of motion. Right shoulder: Normal. Left shoulder: Normal. Cervical back: Normal, full passive range of motion without pain and neck supple. No tenderness. No spinous process tenderness. Thoracic back: Normal. Lumbar back: Normal. Right knee: Normal. Left knee: Normal. Right lower leg: No edema. Left lower leg: No edema. Lymphadenopathy: Cervical: No cervical adenopathy. Skin: General: Skin is warm and dry. Neurological: General: No focal deficit present. Mental Status: He is alert and oriented to person, place, and time. Mental status is at baseline. Sensory: Sensation is intact. Motor: Motor function is intact. Psychiatric: Attention and Perception: Attention and perception normal. Mood and Affect: Mood normal. Speech: Speech normal. Behavior: Behavior normal. Thought Content: Thought content normal. Judgment: Judgment normal. Data Reviewed: Most recent labs ASSESSMENT/PLAN: 1. Essential (primary) hypertension - ICD9: 401.9, ICD10: I10 (primary diagnosis) - good control - Continue current medication(s) - Recommended regular aerobic exercise. - Recommend home blood pressure monitoring, to bring results in on next visit - Goal of BP <130/80 - LOSARTAN 100 MG TABLET 2. Chronic insomnia - ICD9: 780.52, ICD10: F51.04 - MIRTAZAPINE 30 MG TABLET 3. Generalized anxiety disorder - ICD9: 300.02, ICD10: F41.1 - VENLAFAXINE ER 37.5 MG CAPSULE,EXTENDED RELEASE 24 HR 4. Mixed hyperlipidemia - ICD9: 272.2, ICD10: E78.2 - to be determined upon return of lab results - Check fasting lipid panel and ALT. - CBC + DIFF - COMP METABOLIC PANEL - LIPID PANEL BASIC - URINALYSIS, WITH MICROSCOPIC 5. Screening for thyroid disorder - ICD9: V77.0, ICD10: Z13.29 - TSH BLD 6. Screening for prostate cancer - ICD9: V76.44, ICD10: Z12.5 - PSA/PROSTSPECAG SCRN 7. BMI 31.0-31.9,adult - ICD9: V85.31, ICD10: Z68.31 Return in about 6 months (around 05/17/2023). Tanvir Hunter DO Attestation: Scribe Statement: I Heide Nuñez am scribing for, and in the presence of, Tanvir Hunter DO November 14, 2022 2:44 PM. Physician Statement: I, Tanvir Hunter DO, personally performed the services described in the documentation, as scribed by Heide Nuñez in my presence, and it is both accurate and complete November 14, 2022 2:58 PM. documented in this encounter [facility] 10-19-2022 Miscellaneous Notes Patient last seen 11/11/21 and was to return in 6 months around 05/14/22. Please call and schedule patient for an appointment. Thank you. documented in this encounter [facility] 10-04-2022 Miscellaneous Notes Images from the original note were not included. Received a letter through the mail with a notice: Uploaded into [employer]. documented in this encounter [facility] 10-03-2022 Miscellaneous Notes Pharmacy faxed requesting the following refill. Requested Prescriptions Pending Prescriptions Disp Refills fluticasone-salmeterol (ADVAIR DISKUS) 100-50 mcg/dose inhaler 180 Each 3 Sig: Inhale 1 Puff as instructed twice daily. Rinse and gargle mouth with water after each use. Patient Phone numbers: [phone] (home) Request is for script(s) to be escript to pharmacy. Corina Evans documented in this encounter [facility] 09-30-2022 History of Presen t illness Narrative Pt identified by name and birthdate. Allergy injections given subcutaneously by Haven Fajardo RN. September 30, 2022 Time Given: 0824 Patient states they took antihistamine. Patient states took Zyrtec at midnight.. Immunotherapy Order written on: 08/30/[address] Jacob Adam If patient has asthma, patient states symptoms controlled: No Patient did not report a recent illness. Patient on Beta rommel:No Patient has their Epi pen with them, Yes Vial A Content: GRASSES Patient did not have a large late local reaction to previous injection. Concentration: 1:1 Dose: 0.25 ml SQ Arm: left upper arm (proximal) Reaction after 30 minutes: None Previously instructed about signs and symptoms of local and systemic reactions. Appointment line and nurses station number given as well as injection times at administering location. Haven Fajardo documented in this encounter [facility] 09-16-2022 History of Presen t illness Narrative Pt identified by name and birthdate. Allergy injections given subcutaneously by Haven Fajardo RN. September 16, 2022 Time Given: 0831 Patient states they took antihistamine. Patient states took Zyrtec at 0100 today. Immunotherapy Order written on: 08/30/[address] Jacob Adma If patient has asthma, patient states symptoms controlled: No Patient did not report a recent illness. Patient on Beta rommel:No Patient has their Epi pen with them, Yes Vial A Content: GRASSES Patient did not have a large late local reaction to previous injection. Concentration: 1:1 Dose: 0.2 ml SQ Arm: right upper arm (proximal) Reaction after 30 minutes: None Previously instructed about signs and symptoms of local and systemic reactions. Appointment line and nurses station number given as well as injection times at administering location. Haven Fajardo documented in this encounter [facility] 08-30-2022 History of Presen t illness Narrative Allergy Immunotherapy extract orders written on August 30, 2022 by Jacob Adam M.D. Vial: A ordered Concentration: 1:1 Order faxed to [facility] on 08/30/2022 Charge placed for one, maintenance vial(s) Dose Quantity: 7 Note reason for repeat build up vials, repeat series or partial series: N/A documented in this encounter [facility] 08-30-2022 History of Presen t illness Narrative Pt identified by name and birthdate. Allergy injections given subcutaneously by Maryann Martinez RN. August 30, 2022 Time Given: 0746 Patient states they took antihistamine. Patient states took Zyrtec at 0500 today.. Immunotherapy Order written on: November 09, [address] Jacob Adam If patient has asthma, patient states symptoms controlled: N/A Patient did not report a recent illness. Patient on Beta rommel:N/A Patient has their Epi pen with them, Yes Vial A Content: GRASSES Patient did not have a large late local reaction to previous injection. Concentration: 1:1 Dose: 0.35 ml SQ Arm: left upper arm (distal) Reaction after 30 minutes: pinpoint Previously instructed about signs and symptoms of local and systemic reactions. Appointment line and nurses station number given as well as injection times at administering location. Yris Martinez RN documented in this encounter [facility] 08-30-2022 Miscellaneous Notes Requesting new vial orders. Last dose 0.35 of vial A 1:1. Requesting new Vial A of 1:1. [place] location. [facility] 12/06/2021 documented in this encounter [facility] 08-16-2022 History of Presen t illness Narrative Pt identified by name and birthdate. Allergy injections given subcutaneously by Maryann Martinez RN. August 16, 2022 Time Given: 0748 Patient states they took antihistamine. Patient states took Zyrtec at 0500 today.. Immunotherapy Order written on: November 09, [address] Jacob Adam If patient has asthma, patient states symptoms controlled: N/A Patient did not report a recent illness. Patient on Beta rommel:N/A Patient has their Epi pen with them, Yes Vial A Content: GRASSES Patient did not have a large late local reaction to previous injection. Concentration: 1:1 Dose: 0.3 ml SQ Arm: right upper arm (distal) Reaction after 30 minutes: pinpoint Previously instructed about signs and symptoms of local and systemic reactions. Appointment line and nurses station number given as well as injection times at administering location. Yris Martinez RN documented in this encounter [facility] 07-29-2022 History of Presen t illness Narrative Pt identified by name and birthdate. Yes Allergy injection(s) given SQ. By Ana Urbina RN July 29, 2022 8:25 AM Patient states they took antihistamine. Patient states took Zyrtec at 0500 today.. Patient states they did not have a large late local reaction to previous injection. If patient has asthma, patient states symptoms controlled: N/A Patient states they did not report a recent illness. Patient on Beta rommel:No Patient has their Epi pen with them,Yes Vial Content: GRASSCLAIRE Immunotherapy Order written on: 11/09/[address] Jacob Adam [phone] Concentration: 1:1 Dose: 0.25 ml SQ Arm: left upper arm (proximal) Reaction after 30 minutes: pea size induration Appointment line and nurses station number given as well as injection times at administering location. Ana Urbina documented in this encounter [facility] 06-20-2022 History of Presen t illness Narrative Pt identified by name and birthdate. Allergy injections given subcutaneously by Haven Fajardo RN. June 20, 2022 Time Given: 0720 Patient states they did not take antihistamine. Immunotherapy Order written on: 11/09/[address] Jacob Adam If patient has asthma, patient states symptoms controlled: N/A Patient did not report a recent illness. Patient on Beta rommel:No Patient has their Epi pen with them, Yes Vial A Content: GRASSES Patient did not have a large late local reaction to previous injection. Concentration: 1:1 Dose: 0.2 ml SQ- Per Dr. Boss Arm: right upper arm (proximal) Reaction after 30 minutes: None Previously instructed about signs and symptoms of local and systemic reactions. Appointment line and nurses station number given as well as injection times at administering location. Haven Fajardo documented in this encounter [facility] 06-15-2022 History of Presen t illness Narrative ESTABLISHED PATIENT OFFICE VISIT HISTORY OF PRESENT ILLNESS Patient presents with: Elevated PSA Madi Bolanos is a 66 year old male who presents for follow up regarding New problem- none LAB RESULTS Creatinine Date Value Ref Range Status 12/21/2011 0.92 0.70 - 1.40 mg/dL Final PSA (ng/mL) Date Value 12/24/2019 3.57 12/11/2018 4.44 Color (no units) Date Value 12/21/2011 Yellow Clarity (no units) Date Value 12/21/2011 Clear Glucose, Urine (mg/dL) Date Value 12/21/2011 Negative Bilirubin, Urine (no units) Date Value 12/21/2011 Negative Ketones, Urine (no units) Date Value 12/21/2011 Negative Specific [place], Ur (no units) Date Value 12/21/2011 1.020 Hemoglobin/Blood,Ur (no units) Date Value 12/21/2011 Negative pH, Urine (no units) Date Value 12/21/2011 6.0 Protein, Urine (mg/dL) Date Value 12/21/2011 Negative Urobilinogen (no units) Date Value 12/21/2011 Normal Nitrites (no units) Date Value 12/21/2011 Negative Leukest (no units) Date Value 12/21/2011 Negative ALLERGIES Allergen Reactions Ciprofloxacin Hcl GI Upset Doxycycline Unknown Seasonal Allergies Other: See Comments Hayfever MEDICATIONS: montelukast (SINGULAIR) 10 mg tablet TAKE 1 TABLET BY MOUTH EVERYDAY AT BEDTIME mirtazapine (REMERON) 30 mg tablet TAKE 1 TABLET BY MOUTH EVERYDAY AT BEDTIME venlafaxine ER (EFFEXOR XR) 37.5 mg 24 hr capsule Take 1 capsule by mouth once daily. fluticasone-salmeterol (ADVAIR DISKUS) 100-50 mcg/dose inhaler Inhale 1 Puff as instructed twice daily. Rinse and gargle mouth with water after each use. atorvastatin (LIPITOR) 20 mg tablet Take 1 tablet by mouth once daily. losartan (COZAAR) 100 mg tablet Take 1 tablet by mouth once daily. albuterol HFA (PROVENTIL HFA, VENTOLIN HFA) 90 mcg/actuation inhaler Inhale 2 Puffs as instructed every 4 hours as needed. EPINEPHrine (EPIPEN) 0.3 mg/0.3 mL auto-injector Inject 0.3 mL intramuscularly as directed. Okay to use generic COMPOUNDED PRESCRIPTION Allergy injections (immunotherathy) started January 2013 ipratropium bromide (ATROVENT) 42 mcg (0.06 %) nasal spray Use 2 Sprays in the nose three times daily. REVIEW OF SYSTEMS GENERAL:no unintentional weight loss, malaise or fevers. NEUROLOGIC: pt is alert and oriented RESPIRATORY: Negative for cough, wheezing or shortness of breath. GASTROINTESTINAL: No nausea, vomiting, or diarrhea GENITOURINARY: Positive for BPH The remainder of the ROS was reviewed and is negative. HISTORIES PAST MEDICAL HISTORY Diagnosis Date Abnormal EKG Acute maxillary sinusitis Acute prostatitis Allergic rhinitis Asthma Body mass index 29.0-29.9, adult Chronic laryngitis Chronic obstructive lung disease (HCC) Elevated PSA Essential (primary) hypertension Fatigue Generalized anxiety disorder GERD (gastroesophageal reflux disease) Hyperlipemia Lateral epicondylitis Other insomnia Pulmonary emphysema (HCC) Raised TSH level Thrombocytopenic disorder (HCC) Tobacco dependence syndrome Vitamin D deficiency FAMILY HISTORY Problem Relation Age of Onset Emphysema Father other (lung cancer) Father 71 Cancer Mother 79 Hypertension Mother Lipids Brother Lipids Sister PAST SURGICAL HISTORY Procedure Laterality Date CATARACT EXTRACTION HX COLONOSCOPY 04/01/2011 COLONOSCOPY 04/11/2016 PAST SURGICAL HISTORY OF left ear stapedotomy SOCIAL HISTORY Social History Tobacco Use Smoking status: Former Packs/day: 1.50 Years: 35.00 Pack years: 52.50 Types: Cigarettes Quit date: 2007 Years since quittin.7 Smokeless tobacco: Former Quit date: 02/10/2008 Vaping Use Vaping Use: Never used Substance Use Topics Alcohol use: Not Currently Comment: none Drug use: No PHYSICAL EXAMINATION General appearance: Well appearing, alert, in no acute distress, well-hydrated, well nourished Psych Alert and oriented to person, place and time Respiratory: no wheezing or rhonchi Genitourinary: MALE EXAM: Exam prostate 2+, NT, no nodules 06/09/2022 PSA 2.9 05/04/2021 PSA 3.8 12/29/2020 PSA 5.3 12/20/2019 PSA 3.6 12/11/2018 PSA 4.4 07/20/2018 PSA 4.4 10/07/2016 PSA 2.6 11/25/2015 PSA 2.5 Assessment and Plan: BPH/LUTS- stable and on no meds, no hematuria/dysuria Elevated prostate- no Fhx of [employer], prior MERY B9, latest PSA down to 2.9. Pt has felt more comfortable having me check him annually. I told him guidelines now say to stop checking at age 67 so will check again in a year then PRN documented in this encounter [facility] 04-22-2022 Miscellaneous Notes Pharmacy faxed requesting the following refill Refill(s) Requested: Requested Prescriptions Pending Prescriptions Disp Refills mirtazapine (REMERON) 30 mg tablet [Pharmacy Med Name: MIRTAZAPINE 30 MG TABLET] 90 tablet 1 Sig: TAKE 1 TABLET BY MOUTH EVERYDAY AT BEDTIME ALLERGIES Allergen Reactions Ciprofloxacin Hcl GI Upset Doxycycline Unknown Seasonal Allergies Other: See Comments Tegan (home) [phone] (cell) Last Office Visit Date: 11/11/2021 Last Distance Health Visit: Visit date not found Future Appointment: Visit date not found The patients preferred pharmacy has been captured for this encounter? yes Request is for script(s) to be escript to pharmacy. Rosa Dempsey LPN documented in this encounter [facility] 03-16-2022 History of Presen t illness Narrative POPULATION HEALTH NAVIGATION OUTREACH Action/FYI Pt identified by name and : NO Outreach Outcome/Action Unable to reach patient: Left message Staplest message sent Did you use a PCP flex slot to schedule this appointment? N/A Reason for Outreach Care Gap or Scheduling/Wellness visits Payer: Payor: MEDICARE / Plan: MEDICARE A AND B / Product Type: Medicare / Care Gap Reviewed:: Follow-up appointment Controlling Blood Pressure Reminder: Reminder note to check Health Maintenance for items below Health Maintenance items due: ABDOMINAL AORTIC ANEURYSM SCREENING Never done BP CONTROLLED (<130/80) Never done LUNG CANCER SCREENING Never done SHINGRIX VACCINE(2 of 2) due on 01/09/2018 ADVANCE DIRECTIVE DISCUSSION Never done Message Sent to Practice: No Navigation Signature: Eusebia Zepeda March 16, 2022 10:27 AM documented in this encounter [facility] 03-15-2022 History of Presen t illness Narrative .Pt identified by name and birthdate. Yes Allergy injection(s) given SQ. By Ana Urbina RN March 15, 2022 7:20 AM Patient states they took antihistamine. Patient states took Zyrtec at 0500 today. Patient states they did not have a large late local reaction to previous injection. If patient has asthma, patient states symptoms controlled: N/A Patient states they did not report a recent illness. Patient on Beta rommel:No Patient has their Epi pen with them,No Vial Content: GRASSES Immunotherapy Order written on: 11/09/[address] Adam [address] Dr. Jacob Adam [phone] Concentration: 1:1 Dose: 0.45 ml SQ Arm: right upper arm (proximal) Reaction after 45 minutes: pea size induration and flare Appointment line and nurses station number given as well as injection times at administering location. Ana Urbina documented in this encounter [facility] 02-24-2022 Miscellaneous Notes Medication pended Pt requesting refill of Venlafaxine 37.5mg 1 daily Please send to Kate Juárez documented in this encounter [facility] 01-10-2022 History of Presen t illness Narrative Pt identified by name and birthdate. Yes Allergy injection(s) given SQ. By Ana Urbina RN January 10, 2022 8:00 AM Patient states they took antihistamine. Patient states took Zyrted at 0730 today. Patient states they did have a large late local reaction to previous injection. If patient has asthma, patient states symptoms controlled: N/A Patient states they did not report a recent illness. Patient on Beta rommel:No Patient has their Epi pen with them,Yes Vial Content: GRASSES Immunotherapy Order written on: 11/09/[address] Jacob Adam [phone] Concentration: 1:1 Dose: 0.4 ml SQ Arm: right upper arm (proximal) Reaction after 30 minutes: pea size induration Appointment line and nurses station number given as well as injection times at administering location. Ana Urbina documented in this encounter [facility] 12-27-2021 Miscellaneous Notes Patient updated. Spoke with Dr Schultz. New orders written, patient will come berry picker. 2nd telephone encounter started: Pt wants to repeat lab work to check his liver enzymes. Zakia Juárez LM for pt to rtn call. \ hol elevated diet or statin. tsh up Means Thyroid low tsh 3 months documented in this encounter [facility] 12-15-2021 Miscellaneous Notes The office received a referral request from Carlie Braun APRN COMMERCIAL RETOUCHER asking that we contact the patient to schedule an appointment with ENT. I have attempted to contact this patient by phone to return their call, schedule an appointment, discuss lab results, etc. Left message to call back. Gloria Cardona documented in this encounter [facility] 12-13-2021 History of Presen t illness Narrative Pt identified by name and birthdate. Allergy injections given subcutaneously by Allyn Angeles RN. November 15, 2021 Time Given: 08 Patient states they took antihistamine. Patient states took Zyrtec and pepcid at 2200 and 07 yesterday and today. Immunotherapy Order written on: 11/09/2021 by If patient has asthma, patient states symptoms controlled: Yes Patient did not report a recent illness. Patient on Beta rommel:No Patient has their Epi pen with them, Yes Vial A Content: GRASSES Patient did not have a large late local reaction to previous injection. Concentration: 1:1 Dose: 0.35 ml SQ Arm: left upper arm (proximal) Reaction after 30 minutes: None Previously instructed about signs and symptoms of local and systemic reactions. Appointment line and nurses station number given as well as injection times at administering location. Allyn Angeles documented in this encounter [facility] 12-06-2021 Instructions Carlie Braun APRN.ERIN - 12/06/2021 8:22 AM EDT - Nasal saline rinses daily - Advair 1 puff twice daily - Singulair (montelukast) 10 mg daily - Albuterol 2 puffs every 4 hours as needed for shortness of breath, wheezing, chest tightness, or cough. You may also use it 30 minutes prior to prolonged exercise to prevent symptoms from occuring. Call if needing it more than twice a week (not including using it before exercise) or if waking up at night because of your asthma more than twice a month as this may indicate a need to adjust your medication documented in this encounter [facility] 12-06-2021 History of Presen t illness Narrative [facility] Allergy & Clinical Immunology Chief Complaint: PND, throat clearing, and coughing Historian: patient HPI Mr. Bolanos is a 66 year old male with a history of allergic rhinitis on AIT in clinic for follow up. He reports PND, throat clearing, and cough. Symptoms are triggered by changes in environment. He has not noticed a significant improvement since starting AIT and is questioning if he should continue. Flonase, azalastine, ipratropium bromide nasal sprays were not helpful. He restarted Advair 1 month ago with improvement of symptoms. He takes Singulair daily. Nasal saline rinses as needed help thin out secretions. ACT = 22. Records were reviewed and summarized as follows: 04/10/18 Started AIT for grass allergy 08/20/18 Reached maintenance AIT dose PAST MEDICAL HISTORY Diagnosis Date Abnormal EKG Acute maxillary sinusitis Acute prostatitis Allergic rhinitis Asthma Body mass index 29.0-29.9, adult Chronic laryngitis Chronic obstructive lung disease (HCC) Elevated PSA Essential (primary) hypertension Fatigue Generalized anxiety disorder GERD (gastroesophageal reflux disease) Hyperlipemia Lateral epicondylitis Other insomnia Pulmonary emphysema (HCC) Raised TSH level Thrombocytopenic disorder (HCC) Tobacco dependence syndrome Vitamin D deficiency PAST SURGICAL HISTORY Procedure Laterality Date CATARACT EXTRACTION HX COLONOSCOPY 04/01/2011 COLONOSCOPY 04/11/2016 PAST SURGICAL HISTORY OF left ear stapedotomy FAMILY HISTORY Problem Relation Age of Onset Emphysema Father other (lung cancer) Father 71 Cancer Mother 79 Hypertension Mother Lipids Brother Lipids Sister Social History Tobacco Use Smoking status: Former Smoker Packs/day: 1.50 Years: 35.00 Pack years: 52.50 Types: Cigarettes Quit date: 2007 Years since quittin.2 Smokeless tobacco: Former User Quit date: 02/10/2008 Vaping Use Vaping Use: Never used Substance Use Topics Alcohol use: Not Currently Comment: none Drug use: No Social History Tobacco Use Smoking status: Former Smoker Packs/day: 1.50 Years: 35.00 Pack years: 52.5 Types: Cigarettes Quit date: 2007 Years since quittin.2 Smokeless tobacco: Former User Quit date: 02/10/2008 Current Outpatient Medications Medication Sig mirtazapine (REMERON) 30 mg tablet TAKE 1 TABLET BY MOUTH EVERYDAY AT BEDTIME atorvastatin (LIPITOR) 20 mg tablet Take 1 tablet by mouth once daily. losartan (COZAAR) 100 mg tablet Take 1 tablet by mouth once daily. venlafaxine ER (EFFEXOR XR) 37.5 mg 24 hr capsule TAKE 1 CAPSULE BY MOUTH EVERY DAY montelukast (SINGULAIR) 10 mg tablet TAKE 1 TABLET BY MOUTH EVERYDAY AT BEDTIME albuterol HFA (PROVENTIL HFA, VENTOLIN HFA) 90 mcg/actuation inhaler Inhale 2 Puffs as instructed every 4 hours as needed. EPINEPHrine (EPIPEN) 0.3 mg/0.3 mL auto-injector Inject 0.3 mL intramuscularly as directed. Okay to use generic COMPOUNDED PRESCRIPTION Allergy injections (immunotherathy) started January 2013 No current facility-administered medications for this visit. ALLERGIES Allergen Reactions Ciprofloxacin Hcl GI Upset Doxycycline Unknown Seasonal Allergies Other: See Comments Hayfever Review of Systems Constitutional: Negative for chills and fever. HENT: Positive for postnasal drip. Negative for congestion and rhinorrhea. Respiratory: Positive for cough. Negative for chest tightness, shortness of breath and wheezing. Cardiovascular: Negative for chest pain. Blood pressure 153/71, pulse 70, temperature 36.4 C (97.6 F), temperature source Temporal, resp. rate 12, height 180.3 cm (5' 11), weight 102.1 kg (225 lb), SpO2 93 %. Body mass index is 31.38 kg/m . Physical Exam Vitals reviewed. Constitutional: General: He is not in acute distress. Appearance: Normal appearance. He is not ill-appearing. HENT: Nose: Rhinorrhea present. No mucosal edema. Comments: Nasal mucoid drainage. Mouth/Throat: Mouth: Mucous membranes are moist. Pharynx: Oropharynx is clear. Eyes: Conjunctiva/sclera: Conjunctivae normal. Cardiovascular: Rate and Rhythm: Normal rate and regular rhythm. Heart sounds: Normal heart sounds. Pulmonary: Effort: Pulmonary effort is normal. Breath sounds: Normal breath sounds. Lymphadenopathy: Cervical: No cervical adenopathy. Comments: No head or supraclavicular adenopathy. Skin: General: Skin is warm and dry. Capillary Refill: Capillary refill takes less than 2 seconds. Neurological: Mental Status: He is alert. Psychiatric: Mood and Affect: Mood normal. Behavior: Behavior is cooperative. Pulmonary Function Testing I personally reviewed this patient's testing and interpreted it as follows: 04/26/21 Spirometry shows small airway obstruction. Exhaled nitric oxide is normal at 11 ppb. Assessment and Recommendations (J45.30) Mild persistent asthma without complication (primary encounter diagnosis) Improvement of cough with ICS/LABA. Spirometry shows small airway obstruction. - Advair 1 puff twice daily. Consider Breo if not covered - Albuterol 2 puffs every 4 hours as needed for shortness of breath, wheezing, chest tightness, or cough. May also use it 30 minutes prior to prolonged exercise to prevent symptoms from occuring. Advised the patient to call if needing it more than twice a week (not including using it before exercise) or if waking up at night because of asthma more than twice a month as this may indicate a need to adjust his medication. (J30.0) Vasomotor rhinitis (J30.1) Seasonal allergic rhinitis due to pollen Patient has failed to see improvement on AIT and with [place] medications. It seems that nonallergic triggers are playing a more significant role in his symptoms. Patient has been on maintenance AIT for 3+ years. We discussed stopping AIT at this time or evaluating efficacy during grass season. He is looking for a surgical option to control symptoms. - Continue AIT - Nasal saline rinses daily - Singulair (montelukast) 10 mg daily - CONSULT TO ENT; Future Follow up in 6 months, or sooner if needed I spent a total of 45 minutes on the date of the service which included preparing to see the patient, [id number] patient care, completing clinical documentation, obtaining and/or reviewing separately obtained history, performing a medically appropriate examination, counseling and educating the patient/family/caregiver, ordering medications, tests, or procedures and independently interpreting results (not separately reported). Medical Decision Making: Level: 4 - Moderate AVS provided to patient via [employer] and included a recap of today's appointment and medical plan. Carlie Braun APRN.COMMERCIAL RETOUCHER Allergy & Clinical Immunology documented in this encounter [facility] 11-03-2021 Miscellaneous Notes [place] Pt is scheduled for 11/11/2021 Please sched appt. Last OV 03/11/21 was to rtn in 6m. Next OV - nothing sched documented in this encounter [facility] 08-31-2021 Miscellaneous Notes Note received from pharmacy. PATIENT HAS EFFEXOR ER 75 ON FILE, AND WANTS IT CANCELLED, BECAUSE HE WANTS TO BE ON THE 37.5MG INSTEAD. WE HAVE NO MORE REFILLS. PLEASE RENEW THIS (37.5). Please advise documented in this encounter [facility] Evaluation note Diagnosis Mild persistent asthma without complication- Primary Unspecified asthma Vasomotor rhinitis Allergic rhinitis, cause unspecified Seasonal allergic rhinitis due to pollen [facility] Diagnosis Generalized anxiety disorder [facility] Diagnosis Chronic insomnia Insomnia, unspecified [facility]* Diagnosis Seasonal allergic rhinitis due to pollen- Primary Allergic rhinitis due to mold Allergic rhinitis due to dust mite [facility] Diagnosis Subclinical hypothyroidism- Primary Other specified acquired hypothyroidism [facility] noteNo assessment information [facility]WF[facility] Work Phone: Evaluation note* Diagnosis Seasonal allergic rhinitis due to pollen- Primary [facility] Diagnosis Generalized anxiety disorder [facility] Diagnosis Seasonal allergic rhinitis due to pollen- Primary Allergic rhinitis due to dust mite Allergic rhinitis due to mold [facility] Diagnosis Chronic insomnia Insomnia, unspecified [facility] Diagnosis Seasonal allergic rhinitis due to pollen- Primary [facility]* Diagnosis Elevated prostate specific antigen (PSA)- Primary Nocturia BPH with obstruction/lower urinary tract symptoms Hypertrophy of prostate with urinary obstruction and other lower urinary tract symptoms (LUTS) Screening PSA (prostate specific antigen) Special screening for malignant neoplasm of prostate [facility] Diagnosis Seasonal allergic rhinitis due to pollen- Primary Allergic rhinitis due to dust mite Allergic rhinitis due to mold [facility] Diagnosis Seasonal allergic rhinitis due to pollen- Primary [facility]* Diagnosis Seasonal allergic rhinitis due to pollen- Primary [facility]* Diagnosis Seasonal allergic rhinitis due to pollen- Primary [facility] Diagnosis Chronic insomnia Insomnia, unspecified [facility] Diagnosis Essential (primary) hypertension- Primary Unspecified essential hypertension Chronic insomnia Insomnia, unspecified Generalized anxiety disorder Mixed hyperlipidemia Screening for thyroid disorder Screening for prostate cancer Special screening for malignant neoplasm of prostate BMI 31.0-31.9,adult Body Mass Index 31.0-31.9, adult documented in this encounter [facility] note* Diagnosis Seasonal allergic rhinitis due to pollen- Primary Allergic rhinitis due to mold Mild persistent asthma without complication Unspecified asthma Vasomotor rhinitis Allergic rhinitis, cause unspecified Chronic cough Cough Muscle tension dysphonia Dysphonia documented in this encounter [facility] note* Diagnosis Essential (primary) hypertension- Primary Unspecified essential hypertension Mixed hyperlipidemia Seasonal allergic rhinitis due to pollen Overweight with body mass index (BMI) of 28 to 28.9 in adult documented in this encounter [facility] note* Diagnosis Nocturia- Primary BPH with obstruction/lower urinary tract symptoms Hypertrophy of prostate with urinary obstruction and other lower urinary tract symptoms (LUTS) Screening PSA (prostate specific antigen) Special screening for malignant neoplasm of prostate documented in this encounter [facility] note* Diagnosis Seasonal allergic rhinitis due to pollen- Primary Mild persistent asthma without complication Unspecified asthma Vasomotor rhinitis Allergic rhinitis, cause unspecified Chronic cough Cough Muscle tension dysphonia Dysphonia documented in this encounter [facility] note* Diagnosis Seasonal allergic rhinitis due to pollen documented in this encounter [facility] note* Diagnosis Generalized anxiety disorder documented in this encounter [facility] note* Diagnosis Chronic insomnia Insomnia, unspecified documented in this encounter [facility] note* Diagnosis Seasonal allergic rhinitis due to pollen documented in this encounter [facility] note* Diagnosis Essential (primary) hypertension- Primary Unspecified essential hypertension Chronic insomnia Insomnia, unspecified Generalized anxiety disorder Mixed hyperlipidemia Overweight with body mass index (BMI) of 29 to 29.9 in adult Screening for thyroid disorder Screening for prostate cancer Special screening for malignant neoplasm of prostate documented in this encounter [facility] note* Diagnosis Seasonal allergic rhinitis due to pollen- Primary Mild persistent asthma without complication Unspecified asthma Vasomotor rhinitis Allergic rhinitis, cause unspecified Chronic cough Cough Muscle tension dysphonia Dysphonia Allergic rhinitis due to dust mite Allergic rhinitis due to mold documented in this encounter [facility] note* Diagnosis Essential (primary) hypertension Unspecified essential hypertension documented in this encounter [facility] Purpose Family History No Family History Records FoundNo Family History Records FoundNo Family History Records FoundNo Family History Records Found Advance Directives No Advanced Directives Records FoundNo Advanced Directives Records FoundNo Advanced Directives Records FoundNo Advanced Directives Records Found Reason for Referral Specialty Diagnoses / Procedures Referred By Joe perez Referred To Contact Ent - Otolaryngology Diagnoses Vasomotor rhinitis Procedures CONSULT TO ENT OFFICE/OUTPATIENT NEW HIGH MDM 60-74 MINUTES Carlie Braun APRN.COMMERCIAL RETOUCHER [address] [place] [address] Referral ID Status Reason Start Date Expiration Date Visits Requested Visits Authorized [id number] Authorized PCP Requested Referral 12/06/2021 12/06/2022 1 1 Specialty Diagnoses / Procedures Referred By Joe perez Referred To Contact Diagnoses Overweight with body mass index (BMI) of 29 to 29.9 in adult [facility] [address] [place] [id number] Referral ID Status Reason Start Date Expiration Date Visits Re quested Visits Authorized [id number] Closed 1 1 Additional Source Comments (unrecognized sect ion and content) No Status Records FoundNo Status Records FoundNo Status Records FoundNo Status Records Found INFORMATION SOURCE (unrecogn ized section and content) DATE CREATED AUTHOR 12/31/2019 Dedrick Pederson [facility] DATE CREATED AUTHOR AUTHOR'S ORGANIZ ATION 04/28/2024 [facility] DATE CREATED AUTHOR AUTHOR'S ORGANIZ ATION 09/24/2024 [facility] DATE CREATED AUTHOR AUTHOR'S ORGANIZ ATION 02/11/2025 [facility] [facility] Source Comments (unrecognize d section and content) In the event this informatio n is protected by the Federal Confidentiality of Alcohol and Drug Abuse Patient Records regulations: The Federal rules restrict any use of the information to criminally investigate or prosecute any alcohol or drug abuse patient.[facility] CenterIn the event this information is protected by the Federal Confidentiality of Alcohol and Drug Abuse Patient Records regulations: The Federal rules restrict any use of the information to criminally investigate or prosecute any alcohol or drug abuse patient.[facility] CenterIn the event this information is protected by the Federal Confidentiality of Alcohol and Drug Abuse Patient Records regulations: The Federal rules restrict any use of the information to criminally investigate or prosecute any alcohol or drug abuse patient.[facility] CenterIn the event this information is protected by the Federal Confidentiality of Alcohol and Drug Abuse Patient Records regulations: The Federal rules restrict any use of the information to criminally investigate or prosecute any alcohol or drug abuse patient.[facility] CenterIn the event this information is protected by the Federal Confidentiality of Alcohol and Drug Abuse Patient Records regulations: The Federal rules restrict any use of the information to criminally investigate or prosecute any alcohol or drug abuse patient.[facility] CenterIn the event this information is protected by the Federal Confidentiality of Alcohol and Drug Abuse Patient Records regulations: The Federal rules restrict any use of the information to criminally investigate or prosecute any alcohol or drug abuse patient.[facility] CenterIn the event this information is protected by the Federal Confidentiality of Alcohol and Drug Abuse Patient Records regulations: The Federal rules restrict any use of the information to criminally investigate or prosecute any alcohol or drug abuse patient.[facility] CenterIn the event this information is protected by the Federal Confidentiality of Alcohol and Drug Abuse Patient Records regulations: The Federal rules restrict any use of the information to criminally investigate or prosecute any alcohol or drug abuse patient.[facility] CenterIn the event this information is protected by the Federal Confidentiality of Alcohol and Drug Abuse Patient Records regulations: The Federal rules restrict any use of the information to criminally investigate or prosecute any alcohol or drug abuse patient.[facility] CenterIn the event this information is protected by the Federal Confidentiality of Alcohol and Drug Abuse Patient Records regulations: The Federal rules restrict any use of the information to criminally investigate or prosecute any alcohol or drug abuse patient.[facility] CenterIn the event this information is protected by the Federal Confidentiality of Alcohol and Drug Abuse Patient Records regulations: The Federal rules restrict any use of the information to criminally investigate or prosecute any alcohol or drug abuse patient.[facility] CenterIn the event this information is protected by the Federal Confidentiality of Alcohol and Drug Abuse Patient Records regulations: The Federal rules restrict any use of the information to criminally investigate or prosecute any alcohol or drug abuse patient.[facility] CenterIn the event this information is protected by the Federal Confidentiality of Alcohol and Drug Abuse Patient Records regulations: The Federal rules restrict any use of the information to criminally investigate or prosecute any alcohol or drug abuse patient.[facility] CenterIn the event this information is protected by the Federal Confidentiality of Alcohol and Drug Abuse Patient Records regulations: The Federal rules restrict any use of the information to criminally investigate or prosecute any alcohol or drug abuse patient.[facility] CenterIn the event this information is protected by the Federal Confidentiality of Alcohol and Drug Abuse Patient Records regulations: The Federal rules restrict any use of the information to criminally investigate or prosecute any alcohol or drug abuse patient.[facility] CenterIn the event this information is protected by the Federal Confidentiality of Alcohol and Drug Abuse Patient Records regulations: The Federal rules restrict any use of the information to criminally investigate or prosecute any alcohol or drug abuse patient.[facility] CenterIn the event this information is protected by the Federal Confidentiality of Alcohol and Drug Abuse Patient Records regulations: The Federal rules restrict any use of the information to criminally investigate or prosecute any alcohol or drug abuse patient.[facility] CenterIn the event this information is protected by the Federal Confidentiality of Alcohol and Drug Abuse Patient Records regulations: The Federal rules restrict any use of the information to criminally investigate or prosecute any alcohol or drug abuse patient.[facility] CenterIn the event this information is protected by the Federal Confidentiality of Alcohol and Drug Abuse Patient Records regulations: The Federal rules restrict any use of the information to criminally investigate or prosecute any alcohol or drug abuse patient.[facility] CenterIn the event this information is protected by the Federal Confidentiality of Alcohol and Drug Abuse Patient Records regulations: The Federal rules restrict any use of the information to criminally investigate or prosecute any alcohol or drug abuse patient.[facility] CenterIn the event this information is protected by the Federal Confidentiality of Alcohol and Drug Abuse Patient Records regulations: The Federal rules restrict any use of the information to criminally investigate or prosecute any alcohol or drug abuse patient.[facility] CenterIn the event this information is protected by the Federal Confidentiality of Alcohol and Drug Abuse Patient Records regulations: The Federal rules restrict any use of the information to criminally investigate or prosecute any alcohol or drug abuse patient.[facility] CenterIn the event this information is protected by the Federal Confidentiality of Alcohol and Drug Abuse Patient Records regulations: The Federal rules restrict any use of the information to criminally investigate or prosecute any alcohol or drug abuse patient.[facility] CenterIn the event this information is protected by the Federal Confidentiality of Alcohol and Drug Abuse Patient Records regulations: The Federal rules restrict any use of the information to criminally investigate or prosecute any alcohol or drug abuse patient.[facility] CenterIn the event this information is protected by the Federal Confidentiality of Alcohol and Drug Abuse Patient Records regulations: The Federal rules restrict any use of the information to criminally investigate or prosecute any alcohol or drug abuse patient.[facility] CenterIn the event this information is protected by the Federal Confidentiality of Alcohol and Drug Abuse Patient Records regulations: The Federal rules restrict any use of the information to criminally investigate or prosecute any alcohol or drug abuse patient.[facility] CenterIn the event this information is protected by the Federal Confidentiality of Alcohol and Drug Abuse Patient Records regulations: The Federal rules restrict any use of the information to criminally investigate or prosecute any alcohol or drug abuse patient.[facility] CenterIn the event this information is protected by the Federal Confidentiality of Alcohol and Drug Abuse Patient Records regulations: The Federal rules restrict any use of the information to criminally investigate or prosecute any alcohol or drug abuse patient.[facility] CenterIn the event this information is protected by the Federal Confidentiality of Alcohol and Drug Abuse Patient Records regulations: The Federal rules restrict any use of the information to criminally investigate or prosecute any alcohol or drug abuse patient.[facility] CenterIn the event this information is protected by the Federal Confidentiality of Alcohol and Drug Abuse Patient Records regulations: The Federal rules restrict any use of the information to criminally investigate or prosecute any alcohol or drug abuse patient.[facility] CenterIn the event this information is protected by the Federal Confidentiality of Alcohol and Drug Abuse Patient Records regulations: The Federal rules restrict any use of the information to criminally investigate or prosecute any alcohol or drug abuse patient.[facility] CenterIn the event this information is protected by the Federal Confidentiality of Alcohol and Drug Abuse Patient Records regulations: The Federal rules restrict any use of the information to criminally investigate or prosecute any alcohol or drug abuse patient.[facility] CenterIn the event this information is protected by the Federal Confidentiality of Alcohol and Drug Abuse Patient Records regulations: The Federal rules restrict any use of the information to criminally investigate or prosecute any alcohol or drug abuse patient.[facility] CenterIn the event this information is protected by the Federal Confidentiality of Alcohol and Drug Abuse Patient Records regulations: The Federal rules restrict any use of the information to criminally investigate or prosecute any alcohol or drug abuse patient.[facility] CenterIn the event this information is protected by the Federal Confidentiality of Alcohol and Drug Abuse Patient Records regulations: The Federal rules restrict any use of the information to criminally investigate or prosecute any alcohol or drug abuse patient.[facility] CenterIn the event this information is protected by the Federal Confidentiality of Alcohol and Drug Abuse Patient Records regulations: The Federal rules restrict any use of the information to criminally investigate or prosecute any alcohol or drug abuse patient.[facility] CenterIn the event this information is protected by the Federal Confidentiality of Alcohol and Drug Abuse Patient Records regulations: The Federal rules restrict any use of the information to criminally investigate or prosecute any alcohol or drug abuse patient.[facility] CenterIn the event this information is protected by the Federal Confidentiality of Alcohol and Drug Abuse Patient Records regulations: The Federal rules restrict any use of the information to criminally investigate or prosecute any alcohol or drug abuse patient.[facility] CenterIn the event this information is protected by the Federal Confidentiality of Alcohol and Drug Abuse Patient Records regulations: The Federal rules restrict any use of the information to criminally investigate or prosecute any alcohol or drug abuse patient.[facility] CenterIn the event this information is protected by the Federal Confidentiality of Alcohol and Drug Abuse Patient Records regulations: The Federal rules restrict any use of the information to criminally investigate or prosecute any alcohol or drug abuse patient.[facility] CenterIn the event this information is protected by the Federal Confidentiality of Alcohol and Drug Abuse Patient Records regulations: The Federal rules restrict any use of the information to criminally investigate or prosecute any alcohol or drug abuse patient.[facility] CenterIn the event this information is protected by the Federal Confidentiality of Alcohol and Drug Abuse Patient Records regulations: The Federal rules restrict any use of the information to criminally investigate or prosecute any alcohol or drug abuse patient.[facility] CenterIn the event this information is protected by the Federal Confidentiality of Alcohol and Drug Abuse Patient Records regulations: The Federal rules restrict any use of the information to criminally investigate or prosecute any alcohol or drug abuse patient.[facility] CenterIn the event this information is protected by the Federal Confidentiality of Alcohol and Drug Abuse Patient Records regulations: The Federal rules restrict any use of the information to criminally investigate or prosecute any alcohol or drug abuse patient.[facility] CenterIn the event this information is protected by the Federal Confidentiality of Alcohol and Drug Abuse Patient Records regulations: The Federal rules restrict any use of the information to criminally investigate or prosecute any alcohol or drug abuse patient.[facility] CenterIn the event this information is protected by the Federal Confidentiality of Alcohol and Drug Abuse Patient Records regulations: The Federal rules restrict any use of the information to criminally investigate or prosecute any alcohol or drug abuse patient.[facility] CenterIn the event this information is protected by the Federal Confidentiality of Alcohol and Drug Abuse Patient Records regulations: The Federal rules restrict any use of the information to criminally investigate or prosecute any alcohol or drug abuse patient.[facility] CenterIn the event this information is protected by the Federal Confidentiality of Alcohol and Drug Abuse Patient Records regulations: The Federal rules restrict any use of the information to criminally investigate or prosecute any alcohol or drug abuse patient.[facility] CenterIn the event this information is protected by the Federal Confidentiality of Alcohol and Drug Abuse Patient Records regulations: The Federal rules restrict any use of the information to criminally investigate or prosecute any alcohol or drug abuse patient.[facility] CenterIn the event this information is protected by the Federal Confidentiality of Alcohol and Drug Abuse Patient Records regulations: The Federal rules restrict any use of the information to criminally investigate or prosecute any alcohol or drug abuse patient.[facility] CenterIn the event this information is protected by the Federal Confidentiality of Alcohol and Drug Abuse Patient Records regulations: The Federal rules restrict any use of the information to criminally investigate or prosecute any alcohol or drug abuse patient.[facility] CenterIn the event this information is protected by the Federal Confidentiality of Alcohol and Drug Abuse Patient Records regulations: The Federal rules restrict any use of the information to criminally investigate or prosecute any alcohol or drug abuse patient.[facility] Reason for Visit (unrecogniz ed section and content) Reason Comments Asthma Reason Onset Date Comments Refill Request Refill Request 12/07/2021 Reason Onset Date Comments Refill Request needs appt Last ov 03/11/2021 was to rtn 09/2021 Refill Request 12/07/2021 Reason Comments Immunotherapy Reason Comments 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 Reason Comments Results labs Reason Comments Refill Request Venlafaxine Reason Comments Patient Question Reason Comments Outside Lab Results Reason Onset Date Comments Population Health Navigation Outreach 03/16/2022 ACO- Needs to Schedule PCP FU Reason Comments Refill Request Reason Comments Elevated PSA Reason Comments Vial orders Reason Comments Allergen Immunotherapy Extract Reason Onset Date Comments Refill Request 09/16/2022 Reason Onset Date Comments Refill Request 10/03/2022 Reason Comments Medication Problem [facility] Reason Comments Refill Request needs appointment Reason Onset Date Comments Refill Request 11/15/2022 Reason Comments Medication Problem Reason Comments Hypertension patient requesting blood work Reason Comments Asthma Reason Comments 6 Month Exam Hypertension Reason Comments Benign Prostatic Hypertrophy Elevated PSA Reason Comments Follow up Reason Onset Date Comments Refill Request 10/23/2023 Reason Onset Date Comments Refill Request 12/11/2023 Reason Comments 6 Month Exam Medication refills Hypertension Reason Comments Follow Up Care Teams (unrecognized sec tion and content) Rn Procedures Relationship Specialty Start Date End Date Tanvir Hunter DO [address] [place] [address] PCP - General 09/28/01 Jonnathan Méndez Jr. [address] [phone] Attending Allergy 04/26/17 Harjit Russo MD [address] [place] [address] Attending Ent - Otolaryngology 09/13/17 Rn Procedures Relationship Specialty Start Date End Date Tanvir Hunter, DO [address] [place] [address] PCP - General 09/28/01 Jonnathan Méndez Jr. [address] [phone] Attending Allergy 04/26/17 Harjit Russo MD [address] [place] [address] Attending Ent - Otolaryngology 09/13/17 Rn Procedures Relationship Specialty Start Date End Date Tanvir Hunter, DO [address] [place] [address] PCP - General 09/28/01 Jonnathan Méndez Jr. [address] [phone] Attending Allergy 04/26/17 Harjit Russo MD [address] [place], [place] [id number] Attending Ent - Otolaryngology 09/13/17 Rn Procedures Relationship Specialty Start Date End Date Tanvir Hunter, DO [address] [place] [address] PCP - General 09/28/01 Jonnathan Mnédez Jr. [address] [phone] Attending Allergy 04/26/17 Harjit Russo MD [address] [place], [place] [id number] Attending Ent - Otolaryngology 09/13/17 Rn Procedures Relationship Specialty Start Date End Date Tanvir Hunter, DO [address] [place] [address] PCP - General 09/28/01 Jonnathan Méndez Jr. [address] [facility] [address] [place] [phone] Attending Allergy 04/26/17 Harjit Russo MD [address] [place], [place] [id number] Attending Ent - Otolaryngology 09/13/17 Rn Procedures Relationship Specialty Start Date End Date Tanvir Hunter, DO [address] [place] [address] PCP - General 09/28/01 Jonnathan Méndez Jr. [address] [phone] Attending Allergy 04/26/17 Harjit Russo MD [address] [place], [place] [id number] Attending Ent - Otolaryngology 09/13/17 Rn Procedures Relationship Specialty Start Date End Date Tanvir Hunter, DO [address] [place] [address] PCP - General 09/28/01 Jonnathan Méndez Jr. [address] [phone] Attending Allergy 04/26/17 Harjit Russo MD [address] [place] [address] Attending Ent - Otolaryngology 09/13/17 Rn Procedures Relationship Specialty Start Date End Date Tanvir Hunter, DO [address] [place] [address] PCP - General 09/28/01 Jonnathan Méndez Jr. [address] [phone] Attending Allergy 04/26/17 Harjit Russo MD [address] [place], [place] [id number] Attending Ent - Otolaryngology 09/13/17 Rn Procedures Relationship Specialty Start Date End Date Tanvir Hunter, DO [address] [place] [address] PCP - General 09/28/01 Jonnathan Méndez Jr. [address] [phone] Attending Allergy 04/26/17 Harjit Russo MD [address] [place], [place] [id number] Attending Ent - Otolaryngology 09/13/17 Rn Procedures Relationship Specialty Start Date End Date Tanvir Hunter, DO [address] [place] [address] PCP - General 09/28/01 Jonnathan Méndez Jr. [address] [phone] Attending Allergy 04/26/17 Harjit Russo MD [address] [place], [place] [phone] Attending Ent - Otolaryngology 09/13/17 Rn Procedures Relationship Specialty Start Date End Date Tanvir Hunter, DO [address] [place] [address] PCP - General 09/28/01 Jonnathan Méndez Jr. [address] [phone] Attending Allergy 04/26/17 Harjit Russo MD [address] [place] [place], [place] [phone] Attending Ent - Otolaryngology 09/13/17 Rn Procedures Relationship Specialty Start Date End Date Tanvir Hunter, DO [address] [place] [address] PCP - General 09/28/01 Jonnathan Méndez Jr. [address] [phone] Attending Allergy 04/26/17 Harjit Russo MD [address] [place], [place] [id number] Attending Ent - Otolaryngology 09/13/17 Rn Procedures Relationship Specialty Start Date End Date Tanvir Hunter, DO [address] [place] [address] PCP - General 09/28/01 Jonnathan Méndez Jr. [address] [phone] Attending Allergy 04/26/17 Harjit Russo MD [address] [place], [place] [id number] Attending Ent - Otolaryngology 09/13/17 Rn Procedures Relationship Specialty Start Date End Date KamaljitTanvir, DO [address] [place] [address] PCP - General 09/28/01 Jonnathan Méndez Jr. [address] [phone] Attending Allergy 04/26/17 Harjit Russo MD [address] [place] [address] Attending Ent - Otolaryngology 09/13/17 Rn Procedures Relationship Specialty Start Date End Date Tanvir Hunter, [address] [place] [address] PCP - General 09/28/01 Jonnathan Méndez Jr. [address] [phone] Attending Allergy 04/26/17 Harjit Russo MD [address] [place] [address] Attending Ent - Otolaryngology 09/13/17 Rn Procedures Relationship Specialty Start Date End Date Tanvir Hunter, [address] [place] [address] PCP - General 09/28/01 Jonnathan Méndez Jr. [address] [phone] Attending Allergy 04/26/17 Harjit Russo MD [address] [place] [address] Attending Ent - Otolaryngology 09/13/17 Rn Procedures Relationship Specialty Start Date End Date KamaljitTanvir [address] [place] [address] PCP - General 09/28/01 Jonnathan Méndez Jr. [address] [phone] Attending Allergy 04/26/17 Harjit Russo MD [address] [place] [address] Attending Ent - Otolaryngology 09/13/17 Rn Procedures Relationship Specialty Start Date End Date Tanvir Hunter DO [address] [place], [place] [id number] PCP - General 09/28/01 Jonnathan Méndez Jr. [address] [phone] Attending Allergy 04/26/17 Harjit Russo MD [address] [place] [address] Attending Ent - Otolaryngology 09/13/17 Team Status: Active Member Role Status Dates Dr. Yara Hunter , DO Family Provider Active Dr. Yara Hunter DO Primary Care Provider Acti ve Team Status: Inactive Member Role Status Dates Dr. Yara Hunter , Primary Care Provider Acti ve Dr. Joshua Eller MD Attending Provider, July calzada Active Rn Procedures Relationship Specialty Start Date End Date Tanvir Hunter DO [address] [place] [address] PCP - General 09/28/01 Jonnathan Méndez Jr. [address] [phone] Attending Allergy 04/26/17 Harjit Russo MD [address] [place] [place], [place] [id number] Attending Ent - Otolaryngology 09/13/17 Rn Procedures Relationship Specialty Start Date End Date Tanvir Hunter DO [address] [place] [address] PCP - General 09/28/01 Jonnathan Méndez Jr. [address] [phone] Attending Allergy 04/26/17 Harjit Russo MD [address] [place] [place], [place] [phone] Attending Ent - Otolaryngology 09/13/17 Rn Procedures Relationship Specialty Start Date End Date Tanvir Hunter DO [address] [place] [address] PCP - General 09/28/01 Jonnathan Méndez Jr. [address] [phone] Attending Allergy 04/26/17 Harjit Russo MD [address] [place] [place], [place] [phone] Attending Ent - Otolaryngology 09/13/17 Rn Procedures Relationship Specialty Start Date End Date Tanvir Hunter DO [address] [place] [address] PCP - General 09/28/01 Jonnathan Méndez Jr. [address] [phone] Attending Allergy 04/26/17 Harjit Russo MD [address] [place] [place], [place] [phone] Attending Ent - Otolaryngology 09/13/17 Rn Procedures Relationship Specialty Start Date End Date Tanvir Hunter DO [address] [place] [address] PCP - General 09/28/01 Jonnathan Méndez Jr. [address] [phone] Attending Allergy 04/26/17 Harjit Russo MD [address] [place], [place] [id number] Attending Ent - Otolaryngology 09/13/17 Rn Procedures Relationship Specialty Start Date End Date Tanvir Hunter DO [address] [facility] [place] [address] PCP - General 09/28/01 Jonnathan Méndez Jr. [address] [id number] Attending Allergy 04/26/17 Harjit Russo MD [address] [place], [place] [id number] Attending Ent - Otolaryngology 09/13/17 Goals (unrecognized section and content) Goals may be documented in a n alternate sectionGoals may be documented in an alternate sectionGoals may be documented in an alternate sectionGoals may be documented in an alternate section FOR RECORDS PERTAINING TO PATIENTS WHO ARE OR HAVE BEEN ENROLLED IN A CHEMICAL DEPENDENCY/SUBSTANCEABUSE PROGRAM, SOME INFORMATION MAY BE OMITTED. This clinical summary was aggregated from multiple sources. Caution should be exercised in using it in the provision of clinical care. This summary normalizes information from multiple sources, and as a consequence, information in this document may materially change the coding, format and clinical context of patient data. In addition, data may be omitted in some cases. CLINICAL DECISIONS SHOULD BE BASED ON THE PRIMARY CLINICAL RECORDS. [facility] [employer] provides no warranty or guarantee of the accuracy or completeness of information in this document.
[2025-02-17 06:14] LABS: Bacteria 0 SEEN /hpf (None Seen); Mucous, Urine 0 SEEN /hpf (<or=2+); Red Blood Cells-Urine 0 SEEN /hpf (0-5); Squamous Epithelial Cells - UA 0 SEEN /hpf (0-5); White Blood Cells 0 SEEN /hpf (0-5)
[2025-02-17 07:14] LABS: Absolute Lymphocyte Count 2.63 X10^3/uL (0.83-4.51); Absolute Neutrophil Count 3.4 X10^3/uL (2.0-7.7); Basophil# 0.06 X10^3/uL; Basophil% 0.9 % (0-1); Eosinophil# 0.21 X10^3/uL; Hematocrit 47.3 % (40-54); Lymphocyte # 2.63 X10^3/ul (0.83-4.51); Mean Corp Hgb Conc 33.8 g/dL (32-36); Mean Corpuscular Hgb 31.7 pg (27.0-32.0); Mean Corpuscular Volume 93.7 fL (80-94); Mean Platelet Vol. 13.4 fl (6.2-12.0); Monocyte% 8.7 % (0-10); NRBC Flagged by Analyzer 0 % (0-5); Neutrophil # 3.41 X10^3/uL (2.7-7.7); Neutrophil % 49.3 % (47-70); Platelet Count 135 K/mm3 (150-450); RBC Distribution Width CV 12.5 % (11.6-14.6); Red Blood Count 5.05 M/mm3 (4.6-6.2); White Blood Count 6.9 K/mm3 (4.4-11.0)
[2025-02-17 07:38] LABS: Color, Urine Yellow (Yellow); Glucose, Dipstick Normal (Normal); Ketone-Dipstick Negative (Negative); Leukocyte Esterase-Dipstick Negative /ul (Negative); Nitrite-Dipstick Negative (Negative); Occult Blood-Urine Negative /ul (Negative); Protein-Dipstick 30 mg/dl (Negative); Specific Gravity, Urine 1.025 (1.002-1.030); Urine Bilirubin Dipstick Negative (Negative); Urine Clarity Clear (Clear); Urine Urobilinogen Normal (Normal)
[2025-02-17 07:55] LABS: ALB/GLOB Ratio 1.4 RATIO (0.9-2.4); AST(SGOT) 31 U/L (<=37); Alanine Aminotransfer ALT/SGPT 32 U/L (<=46); Albumin, Serum 4.3 g/dL (3.4-4.8); Alkaline Phosphatase 118 U/L (40-129); Anion Gap 11 (5-15); BUN 15 mg/dL (4-19); BUN/Creat Ratio 12.9 RATIO (10-20); Calcium,Total 9.4 mg/dL (7.6-11.0); Chloride 106 mmol/L (98-108); Cholesterol 239 mg/dL (<=200); Creatinine, Serum 1.14 mg/dL (0.70-1.20); EST Glomerular Filtration Rate 69 (>60); Glucose 101 mg/dL (70-99); High Density Lipoprotein 43 mg/dL; Low Density Lipoprotein Calc. 149 mg/dL; Potassium 4.1 mmol/L (3.3-5.1); Protein, Total 7.3 g/dL (5.9-8.4); Sodium Level 141 mmol/L (133-145); Total Bilirubin 0.54 mg/dL (0.00-1.30); Triglycerides 235 mg/dL; Very Low Density Lipoprotein 47 mg/dL (5-40); cholesterol:hdl ratio screen 5.61
== END | disposition home or self-care (01) ==
LOC: LAB 06:08
PROVIDERS: PCP Family Medicine; Referring Provider Family Medicine; Visit Provider Family Medicine
DX: Z13.29 Encounter for screening for other suspected endocrine disorder (principal); I10 Essential (primary) hypertension; E78.2 Mixed hyperlipidemia; Z12.5 Encounter for screening for malignant neoplasm of prostate
CPT/HCPCS: 36415; 80053; 80061; 81001; 84443; 85025

== ENCOUNTER → 2025-05-08 | Outpatient (CLI) | payer MEDICARE, SELFPAY ==
[2025-05-08 12:48] LABS: PSA,Total - Annual Screen 2.98 ng/mL (0.02-4.00)
== END | disposition home or self-care (01) ==
LOC: LAB 10:25
PROVIDERS: PCP Family Medicine; Referring Provider Family Medicine; Visit Provider Family Medicine
DX: E78.2 Mixed hyperlipidemia (principal); Z13.29 Encounter for screening for other suspected endocrine disorder; Z12.5 Encounter for screening for malignant neoplasm of prostate
CPT/HCPCS: 36415; 84153; G0103